=== PATIENT | male | born 1940 | race Caucasian/White ===

== ENCOUNTER 2020-08-06 09:28 | Emergency (ER) | payer MEDICARE, OTHER ==
[~2020-08-06] VITALS: Ht 172.7 cm; Wt 72.7 kg
--- NOTE | 2020-08-06 10:52 | REP ---
INDICATION: fall injury, chest pain. COMPARISON: 11/04/2009. TECHNIQUE: Upright PA and lateral chest. FINDINGS: The lung sanabria are clear. Cardiac size is normal. The omaira, mediastinum and skeletal structures are unremarkable. There is no pneumothorax, hemothorax or pulmonary contusion. No rib fractures are identified. Thoracic vertebral body heights are normal. IMPRESSION: Essentially negative PA and lateral chest There is no interval change. <Electronically signed by Chaparro West > 08/06/20 [id number]
[2020-08-06 10:54] LABS: BASO % 0.4 % (0.0-1.0); EOS # 0.1 10^3/uL (0.0-0.5); EOS % 0.8 % (0.0-3.0); HEMATOCRIT 46.5 % (42.0-52.0); HEMOGLOBIN 15.7 g/dl (13.5-17.5); LYMPH # 0.8 10^3/uL (1.5-5.0); LYMPH % 10.7 % (24.0-44.0); MEAN CORPUSCULAR HGB CONC 33.8 g/dl (32.0-36.5); MEAN CORPUSCULAR VOLUME 91.7 fl (80.0-96.0); MONO # 0.6 10^3/uL (0.0-0.8); MONO % 8.3 % (2.0-8.0); NEUTROPHILS # 5.7 10^3/uL (1.5-8.5); NEUTROPHILS % 79.5 % (36.0-66.0); PLATELET COUNT, AUTOMATED 200 10^3/uL (150-450); RED BLOOD COUNT 5.07 10^6/uL (4.30-6.10); WHITE BLOOD COUNT 7.2 10^3/uL (4.0-10.0)
--- NOTE | 2020-08-06 11:17 | REP ---
INDICATION: fall, possible fracture. COMPARISON: None. TECHNIQUE: CT chest performed without the use of intravenous contrast. Sagittal and coronal reconstruction images are performed. FINDINGS: Lungs: Clear, no infiltrate or nodule. There are several scattered calcified granulomas bilaterally. There is mild scattered interstitial fibrosis bilaterally. Mediastinum: No gross adenopathy. Brittney: No gross adenopathy. There is a small calcified lymph node in the right hilum. Axilla: No gross adenopathy. Pleura: No effusion. Heart: Not enlarged. Thoracic aorta: No aneurysm. Upper abdominal structures: Grossly unremarkable. There is a small hiatal hernia. Visualized osseous structures: Unremarkable. No acute fracture is seen. There is an oval healed fracture of the anterior left 3rd rib. IMPRESSION: Chronic changes, no acute abnormalities detected. <Electronically signed by Chaparro Rice > 08/06/20 [id number]
[2020-08-06 11:37] LABS: ALBUMIN 3.8 GM/DL (3.2-5.2); ALT/SGPT 21 U/L (12-78); BILIRUBIN,DIRECT 0.2 MG/DL (0.0-0.2); BILIRUBIN,TOTAL 0.6 MG/DL (0.2-1.0); BLOOD UREA NITROGEN 13 MG/DL (7-18); CALCIUM LEVEL 8.9 MG/DL (8.8-10.2); CARBON DIOXIDE LEVEL 28 MEQ/L (21-32); CHLORIDE LEVEL 108 MEQ/L (98-107); CK-MB VALUE MASS 4.7 NG/ML (<3.6); CPK CREATINE PHOSPHOKINASE 316 U/L (39-308); CREATININE FOR GFR 1.04 MG/DL (0.70-1.30); GLOMERULAR FILTRATION RATE > 60.0 (>35); GLUCOSE, FASTING 105 MG/DL (70-100); LIPASE 88 U/L (73-393); MB/CK RELATIVE INDEX 1.49 (< OR =4); POTASSIUM SERUM 3.8 MEQ/L (3.5-5.1); SODIUM LEVEL 141 MEQ/L (136-145); TOTAL PROTEIN 6.8 GM/DL (6.4-8.2); TROPONIN I 0.04 NG/ML (< 0.10)
[2020-08-06] MEDS ORDERED: KETOROLAC 30 MG/ML 1ML VIAL IV ONE (11:50)
[2020-08-06 12:15] VITALS: BP 202/103
[2020-08-06] MEDS ORDERED: KETO10TAB PO (12:24)
[2020-08-06] MEDS ORDERED: NORV5TAB PO (12:24)
--- NOTE | 2020-08-06 20:05 | ECGEPIP ---
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
== END 2020-08-06 12:37 | disposition home or self-care (01) ==
LOC: M ED 09:28
DX: S20.219A Contusion of unspecified front wall of thorax, initial encounter (principal); M25.562 Pain in left knee; M25.522 Pain in left elbow; W10.8XXA Fall (on) (from) other stairs and steps, initial encounter; Y92.9 Unspecified place or not applicable; Y93.9 Activity, unspecified; Y99.9 Unspecified external cause status; I10 Essential (primary) hypertension; F17.200 Nicotine dependence, unspecified, uncomplicated

== ENCOUNTER 2020-08-06 16:19 | Inpatient (IN) | payer MEDICARE ==
[~2020-08-06] VITALS: Ht 172.7 cm; Wt 66.6 kg
[~2020-08-06 16:19] MED LIST: KETO10TAB PO; NORV5TAB PO
[2020-08-06] MEDS ORDERED: ISOVUE-370 76% 100ML VIAL As Ordered ONE (16:29)
[2020-08-06 17:00] VITALS: BP 168/76
--- NOTE | 2020-08-06 17:05 | REP ---
INDICATION: CVA - Nursing interventions must not delay CT. COMPARISON: None. TECHNIQUE: Helical scanning is acquired. 5 mm axial images were reformatted. Coronal MPR images were generated. FINDINGS: Bone window settings demonstrate an intact bony calvarium. There is no evidence of skull fracture or incidental bony calvarial lesion. The visualized paranasal sinuses appear clear. No intraorbital abnormality is seen. On soft tissue window setting images; the lateral, third, and fourth ventricles are normal in size and position. Rice-white differentiation pattern is normal above and below the tentorium. There are is no evidence of intracranial hemorrhage. No mass, edema, infarction, or midline shift is seen. No extra-axial fluid collection is appreciated. Moderate vascular calcification is seen in the distal internal carotid arteries bilaterally. There is generalized volume loss intracranially. Mild small vessel changes are noted. IMPRESSION: Generalized volume loss and small vessel atherosclerotic changes. Vascular calcification. No acute intracranial abnormality per. <Electronically signed by Izaiah Morris > 08/06/20 0712
--- NOTE | 2020-08-06 17:09 | REP ---
INDICATION: CVA - Nursing interventions must not delay CT. COMPARISON: None. TECHNIQUE: CT contrast dose: 100 ml of intravenous Isovue 370. CT technique: Helical scanning is acquired. 2 mm axial images are reformatted. Maximal intensity projection and multiplanar re-formation images are generated along with 3-D surface rendered color imaging which is viewed rotational. FINDINGS: Distal vertebral arteries are unremarkable. Basilar artery is somewhat tortuous but widely patent. Posterior cerebral and superior cerebellar vessels are unremarkable. The distal internal carotid arteries are unremarkable. There is vascular calcification in the carotid siphons bilaterally. 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 No other bustillos aneurysm is appreciated. The anterior and middle cerebral arteries are intact bilaterally. No vessel cutoff is seen. Dural sinuses are unremarkable. Surface rendered 3D images show no additional finding. IMPRESSION: 2 mm right ICA bustillos aneurysm. Vascular calcification in the carotid siphons bilaterally. Otherwise negative CT angiography of the brain. <Electronically signed by Izaiah Morris > 08/06/20 [id number]
--- NOTE | 2020-08-06 17:11 | REP ---
INDICATION: cva, left sided wekness COMPARISON: None. TECHNIQUE: Contrast enhancement dose is 100 mL of intravenous Isovue 370. Helical scanning is acquired. 2 mm axial images are re-formatted. Coronal and sagittal MPR images are generated. Coronal and sagittal MIP and oblique MPR images are generated. 3D surface rendered images are generated and viewed rotationally. FINDINGS: There is good opacification of the arterial tree. The thoracic aortic arch is intact is visualized although there is fairly heavy vascular calcification. Great vessel origins are nonstenotic. There is calcification at the origin of the left vertebral artery and right vertebral artery but no occlusion or high-grade stenosis is seen. Vertebral arteries are codominant. The common carotid arteries show minimal calcification bilaterally. There is calcific plaquing at the carotid bifurcations bilaterally. Less than 50% stenosis is seen in the proximal ICAs on both sides. Cervical internal carotid arteries are unremarkable. IMPRESSION: Multifocal calcific plaquing. No high-grade stenosis or occlusion seen. <Electronically signed by Izaiah Morris > 08/06/20 [id number]
--- NOTE | 2020-08-06 17:14 | REP ---
INDICATION: CVA. COMPARISON: Comparison chest x-ray August 06 2020 at 10:32 a.m.. TECHNIQUE: Portable upright AP chest radiograph. 5:09 p.m. radiograph. FINDINGS: The lungs remain well inflated and free of infiltrate. Pleural angles are sharp. Heart remains mildly enlarged. Pulmonary vasculature is cephalized. There is no evidence of pleural effusion or pulmonary edema. No focal infiltrate is seen.. IMPRESSION: Cardiomegaly mild in degree. Cephalization of the pulmonary vasculature. No evidence of pleural effusion or pulmonary edema.. <Electronically signed by Izaiah Morris > 08/06/20 [id number]
[2020-08-06] MEDS ORDERED: ASPIRIN 325 MG TAB PO ONE (17:40)
[2020-08-06] MEDS ORDERED: NICOTINE 21MG/24HR 1 EA TRANSDERMAL TD ONE (17:50)
[2020-08-06 18:30] LABS: RSV AMPLIFICATION NEGATIVE (NEGATIVE)
--- NOTE | 2020-08-06 19:18 | HPEPDOC ---
General Date of Admission Aug 06, 2020 Date of Service: Aug 06, 2020 Chief Complaint The patient is a 80-year-old male admitted with a reason for visit of left sided weakness Source: Patient History of Present Illness Mr. Caballero is an 80 year old male without medical history who presents with left sided weakness. He initially he tripped and fell on Wednesday and landed on his chest. He was able to get back up. His chest pain continued, so he went to the urgent care today. Urgent care sent him to the hospital. Imaging was negative for fracture and pain improved with Ketorolac. He did have hypertension, and ED initially wanted to admit for hypertensive urgency. Patient did not want to stay, he was given amlodipine and PO ketorolac and sent home. He picked up the medications. At home, he was trying to reach into his car to pick something up when he leaned backwards and fell. He denies blacking out, but he tried to get up and was not able to. He felt that his left leg was weaker than normal. His landlord was there and helped him get up and called for an ambulance. When he arrived, the ED provider reported that he had dysarthria, left facial droop, and left upper and lower extremity weakness. He went to CT head and CT angio of the head and neck. Negative for hemorrhage or significant stenosis. By that time about an hour has passed since symptoms started and symptoms completely resolved. ED spoke with neurology. Patient received full dose aspirin. When I spoke with the patient, this is the first time he has ever had weakness. Denies fever/chills, chest pain, dyspnea, abdominal pain, or dysuria. He has a chronic smoker's cough. Patient will be admitted for TIA. Home Medications Scheduled Amlodipine Besylate (Norvasc) 5 Mg Tablet, 1 TAB PO DAILY Scheduled PRN Ketorolac Tromethamine (Ketorolac Tromethamine) 10 Mg Tablet, 10 MG PO Q6H PRN for PAIN Allergies Coded Allergies: No Known Allergies (Unverified , 08/06/20) Past Medical History Medical History 1. Hypertension 2. Tobacco use Surgical History Denies any surgeries in the past Family History Father and mother has heart disease. Patient did not know what kind of heart disease. Social History * Smoker: current smoker Alcohol: Denies Drugs: denies A-FIB/CHADSVASC A-FIB History Current/History of A-Fib/PAF?: No Review of Systems Constitutional: Denies: Chills, Fever Eyes: Denies: Vision change ENT: Denies: Sore Throat Skin: Denies: Rash Pulmonary: Reports: Dyspnea (with exertion), Cough (chronic) Cardiovascular: Denies: Chest Pain Gastrointestinal: Denies: Abdominal Pain, Diarrhea Genitourinary: Denies: Dysuria Hematologic: Reports: Bruising (Fall on Wednesday with bruising of left arm and left knee) Neurological: Reports: Weakness (now resolved); Denies: Numbness Psych: Reports: Depression; Denies: Anxiety Physical Examination General Exam: Positive: Alert, Cooperative Eye Exam: Positive: EOMI; Negative: Sclera icteric Neck Exam: Positive: Supple Chest Exam: Positive: Clear to auscultation Heart Exam: Positive: Rate Normal, Regular Rhythm Abdomen Exam: Positive: Normal bowel sounds, Soft; Negative: Tenderness Extremity Exam: Negative: Edema Skin Exam: Positive: Other skin issue (Bruising of left arm) Neuro Exam: Positive: Normal Speech, Strength at 5/5 X4 ext, Cranial Nerves 3- 12 NL Psych Exam: Positive: Mental status NL, Mood NL, Oriented x 3 Vital Signs Vital Signs Date Time Temp Pulse Resp B/P (MAP) Pulse Ox O2 Delivery O2 Flow Rate FiO2 08/06/20 18:37 82 95 08/06/20 18:30 166/75 (105) 08/06/20 17:00 95.8 18 Room Air Laboratory Data Labs 24H Laboratory Tests 2 08/06/20 17:37: Coronavirus (COVID-19)(PCR) NEGATIVE, Influenza Type A (RT-PCR) NEGATIVE, Influenza Type B (RT-PCR) NEGATIVE, Respiratory Syncytial Virus (PCR) NEGATIVE Assessment/Plan Mr. Caballero is an 80 year old male without medical history who presents with left sided weakness. Lasted for about an hour per ED physician. Now resolved. CT head and CT angio of head and neck negative for hemorrhage or significant stenosis. There is calcification. Will complete work up with MRI of head, echocardiogram with bubble study, telemetry, HbA1c, and lipid panel. Patient received full dose aspirin in the ED. Will start on high dose pravastatin. Plan / VTE VTE Prophylaxis Ordered?: Yes Plan Plan 1. TIA -Left sided weakness and dysarthria resolved -CT angio head and neck demonstrated calcification, but no significant stenosis -Pending MRI and echocardiogram -Monitor on telemetry -PT in AM -Received full dose aspirin in the ED -Continue aspirin -Start statin 2. Hypertension -Continue amlodipine 3. DVT ppx -SCD and TEDs Disposition: Pending MRI, echocardiogram, telemetry, HbA1c, and PT results. Possible discharge home tomorrow if test results negative and patient ambulate well HUGO DELACRUZ DO Aug 06, 2020 19:18
[2020-08-06 20:30] VITALS: BP 158/84
--- NOTE | 2020-08-06 20:30 | REPVR ---
PROCEDURE INFORMATION: Exam: MR Head Without Contrast Exam date and time: 08/06/2020 7:54 PM Age: 80 years old Clinical indication: Other: Dysarthria, facial droop, left sided weakness TECHNIQUE: Imaging protocol: MR of the head without contrast. COMPARISON: 1. CT Head without contrast 08/06/2020 4:[address] ANGIO HEAD 08/06/2020 4:39:04 PM FINDINGS: Brain: Patchy areas of medial right frontal lobe parenchymal true diffusion restriction with correlative cytotoxic edema on the T2 weighted imaging consistent with recent acute to subacute infarcts in the right SALLY territory. No evidence of infarct hemorrhagic conversion. The brain demonstrates generalized volume loss. Patchy increased signal intensity in the deep white matter and zaria on the T2 weighted imaging most likely represents chronic small vessel ischemic change. Cerebral ventricles: Xanthogranulomatous changes of the choroid plexus. The ventricles are moderately enlarged in keeping with volume loss. Bones/joints: Unremarkable. Paranasal sinuses: Mild ethmoid sinus mucosal thickening. Mastoid air cells: Normal as visualized. No mastoid effusion. Orbital cavity: Unremarkable. Soft tissues: Unremarkable. IMPRESSION: Recent acute/subacute infarcts in the right SALLY territory. Electronically signed by: Mya Ashford On 08/06/2020 20:30:49 PM
--- NOTE | 2020-08-06 20:36 | ECGEPIP ---
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
[2020-08-06 20:50] VITALS: BP 158/84
[2020-08-06] MEDS: PRAVASTATIN 20 MG TAB PO SCH (20:54)
[2020-08-06] MEDS: TAMSULOSIN 0.4 MG CAP PO SCH (20:54)
[2020-08-07] VITALS (7 sets, daily range): BP systolic 130–144; BP diastolic 66–82
[2020-08-07 05:55] LABS: HEMATOCRIT 42.9 % (42.0-52.0); HEMOGLOBIN 14.5 g/dl (13.5-17.5); MEAN CORPUSCULAR HEMOGLOBIN 30.9 pg (27.0-33.0); MEAN CORPUSCULAR HGB CONC 33.8 g/dl (32.0-36.5); MEAN CORPUSCULAR VOLUME 91.3 fl (80.0-96.0); PLATELET COUNT, AUTOMATED 185 10^3/uL (150-450); WHITE BLOOD COUNT 8.9 10^3/uL (4.0-10.0)
[2020-08-07 06:12] LABS: HEMOGLOBIN A1c 5.5 %
[2020-08-07 06:18] LABS: BLOOD UREA NITROGEN 16 MG/DL (7-18); CALCIUM LEVEL 8.4 MG/DL (8.8-10.2); CARBON DIOXIDE LEVEL 25 MEQ/L (21-32); CHLORIDE LEVEL 108 MEQ/L (98-107); CHOLESTEROL LEVEL 152 MG/DL (<200); CHOLESTEROL RISK RATIO 2.235 (<5); GLOMERULAR FILTRATION RATE > 60.0 (>35); GLUCOSE, FASTING 108 MG/DL (70-100); HDL CHOLESTEROL 68 MG/DL (>40); LDL CHOLESTEROL 73 MG/DL (<100); NON-HDL-C 84 MG/DL; POTASSIUM SERUM 3.4 MEQ/L (3.5-5.1); SODIUM LEVEL 141 MEQ/L (136-145); TRIGLYCERIDES LEVEL 57 MG/DL (<150)
[2020-08-07] MEDS ORDERED: POTASSIUM CHLORIDE 10 MEQ SR TABLET PO ONE (06:30)
[2020-08-07 07:25] LABS: MAGNESIUM LEVEL 2.4 MG/DL (1.8-2.4)
[2020-08-07] MEDS ORDERED: amLODIPine 5 MG TAB PO SCH (09:00)
[2020-08-07] MEDS ORDERED: PNEUMOCOCCAL VACCINE 0.5ML SYRINGE (PNEUMOVAX 23) IM ONE (09:00)
[2020-08-07] MEDS ORDERED: FLUBLOK(EGG FREE)(QUAD)INFLUENZA VACC 0.5ML SYRINGE 18YRS & OLDER IM ONE (09:00)
[2020-08-07] MEDS: ASPIRIN 81MG ENTERIC TABLET PO SCH (09:32)
--- NOTE | 2020-08-07 13:55 | ECHO ---
DATE OF PROCEDURE: 08/07/2020 Age: 80 Gender: Male REFERRING PHYSICIAN: Benjamin Miller DO. PATIENT LOCATION: Room 3215. REASON FOR STUDY: Transient ischemic attack (TIA). MEASUREMENTS: IVS 1.3 cm LV 3.4 LVPW 1.4 cm LA 3.3 cm Aorta 3.4 cm IVC 1.2 cm DOPPLER MEASUREMENT Peak velocity across the aortic valve 2.5 m/s Peak velocity across the LVOT 1.3 m/s Peak gradient across the aortic valve 26 mmHg Mean gradient across the aortic valve 14 mmHg Mitral E 0.72 Mitral A 1.2 with a ratio of 0.6 2D COMMENTS: 1. Normal left ventricular size with mildly increased left ventricular wall thickness. Left ventricular systolic function is normal, estimated at 60% to 65%. 2. Normal left atrium. Normal right atrium and right ventricle. 3. The atrial septum appeared to be normal without evidence of defect or shunt. 4. Normal aortic root. 5. Trace pericardial effusion noted, no evidence of cardiac tamponade. 6. Moderately calcified aortic valve with mildly restrictive leaflet motion. Mildly calcified mitral annulus with normal anterior mitral valve leaflet motion. Normal tricuspid valve. The pulmonic valve and proximal pulmonary artery branches were not well visualized. 7. The inferior vena cava was normal in size, central venous pressure is most likely normal. DOPPLER: It detects trace mitral regurgitation, trace tricuspid regurgitation. Abnormal relaxation pattern was noted across the mitral valve leaflets, as well as the mitral valve annulus consistent with features of grade 1 left ventricular diastolic dysfunction. IMPRESSION: 1. Normal global left ventricular systolic function with mild concentric left ventricular hypertrophy. There are some features of left ventricular diastolic dysfunction manifested by abnormal relaxation. 2. Aortic valve sclerosis with mild aortic stenosis, but no aortic regurgitation. 3. Mitral annular calcification with trace mitral regurgitation. 4. This study was technically limited due to poor acoustic window. [facility]
--- NOTE | 2020-08-07 14:51 | REP ---
INDICATION: New left sided weakness, looking for hemorrhage. COMPARISON: Comparison CT study August 06, 2020.. TECHNIQUE: Helical scanning is acquired. 5 mm axial images were reformatted. Coronal MPR images were generated. FINDINGS: Generalized volume loss, mild small vessel changes, and vascular calcification are again noted unchanged from yesterday's CT study. There is no evidence of intracranial hemorrhage. No acute infarction is seen. No mass or midline shift is observed. No extra-axial fluid collection is seen. IMPRESSION: Generalized volume loss, vascular calcification, and mild small vessel changes again noted. No change from yesterday's head CT.. <Electronically signed by Izaiah Morris > 08/07/20 [id number]
[2020-08-07] MEDS: NS 1,000 ML IV SCH (17:44)
--- NOTE | 2020-08-07 17:57 | REP ---
INDICATION: dyspnea. COMPARISON: 08/06/2020. TECHNIQUE: Portable AP chest with the patient sitting. FINDINGS: The cephalization of the pulmonary vasculature identified previously has improved. There are no focal infiltrates. No pleural effusions. The lung sanabria are otherwise clear. Cardiac size is upper normal. Brittney, mediastinum, and skeletal structures are unremarkable. IMPRESSION: The cephalized pulmonary vasculature identified previously has improved. Otherwise, negative portable chest. <Electronically signed by Chaparro West > 08/07/20 [id number]
[2020-08-07] MEDS ORDERED: ONDANSETRON 4MG/2ML VIAL As Ordered ONE (18:24)
[2020-08-07] MEDS ORDERED: ONDANSETRON 4MG/2ML VIAL IV PRN (18:25)
--- NOTE | 2020-08-07 18:41 | IPNPDOC ---
Subjective Date Seen The patient was seen on 08/07/20. Subjective Chief Complaint/HPI Mr. Caballero is an 80 year old male without medical history who presents with left sided weakness. He had an MRI overnight which demonstrated acute and subacute infarctions along the right SALLY. He was seen early in the morning, and he did not exhibit any weakness. Denied any chest pain or dyspnea. I was notified by nurse in the afternoon that patient started to have worsening left sided weakness and was having dysphagia. I ordered CT head which was negative for acute changes. I reached out to neurology. Neurology recommending maintaining blood pressure between 140 to 180 and starting Plavix. Speech evaluated patient and recommended mechanical soft with nectar thick liquids. PT/OT recommending ARU. Later in the afternoon, patient vomited and aspirated. CXR was negative, but lungs sounded very rhonchus. Made him NPO and started him on Zofran. Objective Physical Examination General Exam: Positive: Alert, Cooperative Eye Exam: Negative: Sclera icteric Chest Exam: Positive: Rhonchi Heart Exam: Positive: Rate Normal, Regular Rhythm Abdomen Exam: Positive: Normal bowel sounds, Soft; Negative: Tenderness Extremity Exam: Negative: Edema Skin Exam: Positive: Other skin issue (Bruising of left arm) Neuro Exam: Negative: Strength at 5/5 X4 ext (Left arm and leg weakness) Psych Exam: Positive: Mental status NL, Mood NL Assessment /Plan Assessment Mr. Caballero is an 80 year old male without medical history who presents with left sided weakness. Resolved in the ED. MRI later that evening demonstrated acute/subacute infarcts in the right SALLY regions. Morning after admission, he wa s doing well, but later in the afternoon started to decline. Left sided weakness returned with dysphagia. Spoke with neurology. Recommending maintaining blood pressure between 140s to 180s and starting Plavix. Plan/VTE VTE Prophylaxis Ordered?: Yes Plan 1. Acute/subacute right SALLY CVA -Left sided weakness and dysphagia -Speech therapy evaluated, on pureed, nectar thick liquid diet -Repeat CT head negative, pending MRI -CT angio head and neck demonstrated calcification, but no significant stenosis -Echocardiogram negative for clots. Tele negative for atrial fibrillation -Continue aspirin and statin -Started Plavix -Maintain blood pressure between 140 to 180. Started IV fluids to increase BP 2. Aspiration -CXR negative, but lungs sound very rhonchus -NPO tonight 3. Hypertension -Will stop amlodipine to allow for permissive hypertension 4. DVT ppx -SCD and TEDs Disposition: Will need rehab when medically stable VS, I&O, 24H, Fishbone Vital Signs/I&O Vital Signs Date Time Temp Pulse Resp B/P (MAP) Pulse Ox O2 Delivery O2 Flow Rate FiO2 08/07/20 15:29 99.1 100 18 134/78 (96) 90 Room Air I&O- Last 24 Hours up to 6 AM 08/07/20 06:00 Intake Total 480 ml Output Total 100 ml Balance 380 ml Laboratory Data 24H LABS Laboratory Tests 2 08/07/20 03:05: Urine Color YELLOW, Urine Appearance CLEAR, Urine pH 5.0, Urine Specific Jensen 1.054, Urine Protein 1+H, Urine Glucose (UA) NEGATIVE, Urine Ketones 1+H, Urine Blood 1+H, Urine Nitrite NEGATIVE, Urine Bilirubin NEGATIVE, Urine Urobilinogen 0.2, Urine Leukocyte Esterase NEGATIVE, Urine WBC (Auto) 2, Urine RBC (Auto) 5H, Urine Hyaline Casts (Auto) 0, Urine Bacteria (Auto) NEGATIVE, Urine Squamous Epithelial Cells 0, Urine Mucus (Auto) SMALL, Urine Sperm (Auto) 08/07/20 05:25: Nucleated Red Blood Cells % (auto) 0.0, Anion Gap 8, Glomerular Filtration Rate > 60.0, Estimated Mean Plasma Glucose 111H, Hemoglobin A1c 5.5, Calcium Level 8.4L, Magnesium Level 2.4, Triglycerides Level 57, Total Cholesterol 152, LDL Cholesterol 73, Non-HDL Cholesterol (LDL + VLDL) 84, Total HDL Cholesterol 68, Cholesterol/HDL Ratio 2.235 CBC/BMP Laboratory Tests 08/07/20 05:25 HUGO DELACRUZ DO Aug 07, 2020 18:41
[2020-08-07] MEDS: PRAVASTATIN 20 MG TAB PO SCH (19:59)
[2020-08-07] MEDS: TAMSULOSIN 0.4 MG CAP PO SCH (19:59)
[2020-08-07] MEDS: CLOPIDOGREL 75 MG TAB PO SCH (19:59)
--- NOTE | 2020-08-07 21:57 | REPVR ---
PROCEDURE INFORMATION: Exam: MR Head Without Contrast Exam date and time: 08/07/2020 1:44 PM Age: 80 years old Clinical indication: Altered mental status/memory loss; Other: Neuro changes TECHNIQUE: Imaging protocol: MR of the head without contrast. COMPARISON: MRI-Brain without Contrast 08/06/2020 7:25 PM FINDINGS: Age-related volume loss. Major vascular flow voids at the skull base are preserved. No extra-axial fluid collection. No hydrocephalus. Non-specific white matter gliosis, probable chronic microvascular ischemia. No midline shift or intracranial mass effect. No cerebral edema or pathologic susceptibility. Diffusion restriction involving the medial right frontal and parietal lobes within the right SALLY territory. Associated T2 prolongation. Mild paranasal sinus disease. No significant mastoid effusion. IMPRESSION: Acute/early subacute ischemic infarct involving the paramedian right frontal and parietal lobes within the right SALLY territory. Electronically signed by: Rishi Morrison On 08/07/2020 21:57:32 PM
[2020-08-08] VITALS (8 sets, daily range): BP systolic 164–192; BP diastolic 74–96
[2020-08-08] MEDS: NS 1,000 ML IV SCH ×2 (05:54→19:45)
[2020-08-08 05:57] LABS: HEMATOCRIT 44.6 % (42.0-52.0); HEMOGLOBIN 14.7 g/dl (13.5-17.5); MEAN CORPUSCULAR HEMOGLOBIN 30.4 pg (27.0-33.0); MEAN CORPUSCULAR VOLUME 92.3 fl (80.0-96.0); PLATELET COUNT, AUTOMATED 208 10^3/uL (150-450); RED BLOOD COUNT 4.83 10^6/uL (4.30-6.10)
[2020-08-08 06:20] LABS: CALCIUM LEVEL 9.1 MG/DL (8.8-10.2); CREATININE FOR GFR 1.6 MG/DL (0.70-1.30); GLOMERULAR FILTRATION RATE 44.4 (>35); POTASSIUM SERUM 4.5 MEQ/L (3.5-5.1)
--- NOTE | 2020-08-08 08:05 | REP ---
INDICATION: Hypoxia. COMPARISON: 08/07/2020. TECHNIQUE: Portable AP chest with the patient upright. FINDINGS: The lung sanabria are clear. Cardiac size is normal. The omaira, mediastinum and skeletal structures are unremarkable. IMPRESSION: Essentially negative portable chest <Electronically signed by Chaparro West > 08/08/20 0802
[2020-08-08] MEDS: CLOPIDOGREL 75 MG TAB PO SCH (09:22)
[2020-08-08] MEDS: ASPIRIN 81MG ENTERIC TABLET PO SCH (09:22)
[2020-08-08] MEDS: DOCUSATE SODIUM 100MG CAPSULE PO SCH ×2 (14:37→19:46)
--- NOTE | 2020-08-08 19:08 | IPNPDOC ---
Subjective Date Seen The patient was seen on 08/08/20. Subjective Chief Complaint/HPI Mr. Caballero is an 80 year old male without medical history who presents with left sided weakness. This morning, he still has left arm and leg weakness. He is able to squeeze, push, pull the arms on left, but weaker than right. He has trouble lifting left arm. Leg leg can lift against gravity, but cannot hold in air. Otherwise, denies chest pain or dyspnea. He aspirated when speech therapy was working with swallowing thin liquids. Otherwise, continue NPO and meds with apple sauce Objective Physical Examination General Exam: Positive: Alert, Cooperative Eye Exam: Negative: Sclera icteric Chest Exam: Positive: Rhonchi Heart Exam: Positive: Rate Normal, Regular Rhythm Abdomen Exam: Positive: Normal bowel sounds, Soft; Negative: Tenderness Extremity Exam: Negative: Edema Skin Exam: Positive: Other skin issue (Bruising of left arm) Neuro Exam: Positive: Strength at 5/5 X4 ext (Left arm and leg weakness) Psych Exam: Positive: Mental status NL, Mood NL Assessment /Plan Assessment Mr. Caballero is an 80 year old male without medical history who presents with left sided weakness. Resolved in the ED. MRI later that evening demonstrated acute/subacute infarcts in the right SALLY regions. Morning after admission, he was doing well, but later in the afternoon started to decline. Left sided weakness returned with dysphagia. Spoke with neurology. Recommending maintaining blood pressure between 140s to 180s and starting Plavix. Plan/VTE VTE Prophylaxis Ordered?: Yes Plan 1. Acute/subacute right SALLY CVA -Left sided weakness and dysphagia -Speech therapy evaluated, on pureed, nectar thick liquid diet -Repeat CT head negative, pending MRI -CT angio head and neck demonstrated calcification, but no significant stenosis -Echocardiogram negative for clots. Tele negative for atrial fibrillation -Continue aspirin and statin -Started Plavix -Maintain blood pressure between 140 to 180. 2. Aspiration -CXR negative, but lungs sound very rhonchus -Speech therapy following -Continue NPO 3. Hypertension -Will stop amlodipine to allow for permissive hypertension 4. DVT ppx -SCD and TEDs Disposition: Will need rehab when medically stable VS, I&O, 24H, Fishbone Vital Signs/I&O Vital Signs Date Time Temp Pulse Resp B/P (MAP) Pulse Ox O2 Delivery O2 Flow Rate FiO2 08/08/20 16:00 8.0 08/08/20 16:00 97.9 88 19 170/80 (110) 94 Room Air I&O- Last 24 Hours up to 6 AM 08/08/20 06:00 Intake Total 1845 ml Output Total 200 ml Balance 1645 ml Laboratory Data 24H LABS Laboratory Tests 2 08/08/20 05:16: Nucleated Red Blood Cells % (auto) 0.0, Anion Gap 7L, Glomerular Filtration Rate 44.4, Calcium Level 9.1 CBC/BMP Laboratory Tests 08/08/20 05:16 HUGO DELACRUZ 25, 2021 19:08
[2020-08-08] MEDS: hydrALAZINE 20MG/ML 1ML VIAL (J0360 PER 20MG) IV PRN (19:45)
[2020-08-08] MEDS: PRAVASTATIN 20 MG TAB PO SCH (19:45)
[2020-08-08] MEDS: TAMSULOSIN 0.4 MG CAP PO SCH (19:46)
[2020-08-09] VITALS (7 sets, daily range): BP systolic 140–202; BP diastolic 54–92
[2020-08-09 05:28] LABS: HEMATOCRIT 43.7 % (42.0-52.0); HEMOGLOBIN 14.6 g/dl (13.5-17.5); MEAN CORPUSCULAR HEMOGLOBIN 31.1 pg (27.0-33.0); MEAN CORPUSCULAR HGB CONC 33.4 g/dl (32.0-36.5); PLATELET COUNT, AUTOMATED 207 10^3/uL (150-450); WHITE BLOOD COUNT 6.4 10^3/uL (4.0-10.0)
[2020-08-09 05:47] LABS: CALCIUM LEVEL 8.7 MG/DL (8.8-10.2); CREATININE FOR GFR 1.42 MG/DL (0.70-1.30); GLOMERULAR FILTRATION RATE 50.9 (>35); POTASSIUM SERUM 4.2 MEQ/L (3.5-5.1)
[2020-08-09] MEDS: CLOPIDOGREL 75 MG TAB PO SCH (10:16)
[2020-08-09] MEDS: DOCUSATE SODIUM 100MG CAPSULE PO SCH ×2 (10:16→21:00)
[2020-08-09] MEDS: ASPIRIN 81MG ENTERIC TABLET PO SCH (10:16)
[2020-08-09] MEDS: LR 1,000 ML IV SCH ×2 (10:16→20:10)
--- NOTE | 2020-08-09 11:39 | IPNPDOC ---
Subjective Date Seen The patient was seen on 08/09/20. Subjective Chief Complaint/HPI Mr. Caballero is an 80 year old male without medical history who presents with left sided weakness. Yesterday afternoon, he did not do well with thin liquids and remains NPO. He is doing okay with crushed meds with applesauce. This morning, he was fatigued. Still has left sided weakness. Objective Physical Examination General Exam: Positive: Alert, Cooperative Eye Exam: Negative: Sclera icteric Chest Exam: Positive: Rhonchi Heart Exam: Positive: Rate Normal, Regular Rhythm Abdomen Exam: Positive: Normal bowel sounds, Soft; Negative: Tenderness Extremity Exam: Negative: Edema Skin Exam: Positive: Other skin issue (Bruising of left arm) Neuro Exam: Positive: Strength at 5/5 X4 ext (Left arm and leg weakness) Psych Exam: Positive: Mental status NL, Mood NL Assessment /Plan Assessment Mr. Caballero is an 80 year old male without medical history who presents with left sided weakness. Resolved in the ED. MRI later that evening demonstrated acute/subacute infarcts in the right SALLY regions. Morning after admission, he was doing well, but later in the afternoon started to decline. Left sided weakness returned with dysphagia. Spoke with neurology. Permissive hypertension and DAPT therapy. Plan/VTE VTE Prophylaxis Ordered?: Yes Plan 1. Acute/subacute right SALLY CVA -Left sided weakness and dysphagia -Speech therapy following, recommendations appreciated -CT angio head and neck demonstrated calcification, but no significant stenosis -Echocardiogram negative for clots. Tele negative for atrial fibrillation -Continue aspirin and statin -Started Plavix -Maintain blood pressure between 140 to 180. 2. Aspiration -CXR negative, but lungs sound very rhonchus -Speech therapy following -Continue NPO 3. Hypertension -Will stop amlodipine to allow for permissive hypertension 4. DVT ppx -SCD and TEDs Disposition: Pending clinical improvement. Will need rehab when medically stable VS, I&O, 24H, [place] Vital Signs/I&O Vital Signs Date Time Temp Pulse Resp B/P (MAP) Pulse Ox O2 Delivery O2 Flow Rate FiO2 08/09/20 10:16 94 140/54 08/09/20 08:00 98.7 18 93 Room Air 08/09/20 04:00 8.0 I&O- Last 24 Hours up to 6 AM 08/09/20 06:00 Intake Total 680 ml Output Total 650 ml Balance 30 ml Laboratory Data 24H LABS Laboratory Tests 2 08/09/20 05:05: Nucleated Red Blood Cells % (auto) 0.0, Anion Gap 6L, Glomerular Filtration Rate 50.9, Calcium Level 8.7L CBC/BMP Laboratory Tests 08/09/20 05:05 HUGO DELACRUZ DO Aug 09, 2020 11:38
[2020-08-09] MEDS: hydrALAZINE 20MG/ML 1ML VIAL (J0360 PER 20MG) IV PRN (11:53)
[2020-08-09 13:07] LABS: CALCIUM LEVEL 9.1 MG/DL (8.8-10.2); CREATININE FOR GFR 1.35 MG/DL (0.70-1.30); POTASSIUM SERUM 4.3 MEQ/L (3.5-5.1)
[2020-08-09] MEDS: TAMSULOSIN 0.4 MG CAP PO SCH (22:09)
[2020-08-09] MEDS: PRAVASTATIN 20 MG TAB PO SCH (22:09)
[2020-08-10] VITALS (7 sets, daily range): BP systolic 150–186; BP diastolic 50–100
[2020-08-10] MEDS: hydrALAZINE 20MG/ML 1ML VIAL (J0360 PER 20MG) IV PRN ×4 (04:08→23:00)
[2020-08-10 05:27] LABS: HEMATOCRIT 43.7 % (42.0-52.0); HEMOGLOBIN 14.3 g/dl (13.5-17.5); MEAN CORPUSCULAR HEMOGLOBIN 30.8 pg (27.0-33.0); MEAN CORPUSCULAR HGB CONC 32.7 g/dl (32.0-36.5); PLATELET COUNT, AUTOMATED 181 10^3/uL (150-450); RED BLOOD COUNT 4.65 10^6/uL (4.30-6.10)
[2020-08-10 05:49] LABS: BLOOD UREA NITROGEN 29 MG/DL (7-18); CARBON DIOXIDE LEVEL 23 MEQ/L (21-32); CHLORIDE LEVEL 121 MEQ/L (98-107); CREATININE FOR GFR 1.16 MG/DL (0.70-1.30); GLOMERULAR FILTRATION RATE > 60.0 (>35); GLUCOSE, FASTING 106 MG/DL (70-100); POTASSIUM SERUM 3.8 MEQ/L (3.5-5.1); SODIUM LEVEL 151 MEQ/L (136-145)
[2020-08-10] MEDS: LR 1,000 ML IV SCH ×2 (05:50→13:51)
[2020-08-10] MEDS ORDERED: amLODIPine 5 MG TAB PO SCH (09:00)
[2020-08-10] MEDS: DOCUSATE SODIUM 100MG CAPSULE PO SCH (09:00)
[2020-08-10] MEDS: CLOPIDOGREL 75 MG TAB PO SCH (09:02)
[2020-08-10] MEDS: ASPIRIN 81MG ENTERIC TABLET PO SCH (09:03)
[2020-08-10 12:24] LABS: BLOOD UREA NITROGEN 28 MG/DL (7-18); CALCIUM LEVEL 8.7 MG/DL (8.8-10.2); CARBON DIOXIDE LEVEL 28 MEQ/L (21-32); CHLORIDE LEVEL 120 MEQ/L (98-107); CREATININE FOR GFR 1.11 MG/DL (0.70-1.30); GLOMERULAR FILTRATION RATE > 60.0 (>35); GLUCOSE, FASTING 110 MG/DL (70-100); POTASSIUM SERUM 4.2 MEQ/L (3.5-5.1); SODIUM LEVEL 151 MEQ/L (136-145)
[2020-08-10] MEDS ORDERED: ACETAMINOPHEN *IV* 650 MG in IV 1 EA IV ONE (13:00)
--- NOTE | 2020-08-10 13:06 | REP ---
INDICATION: Fever, aspiration. COMPARISON: Comparison radiograph August 08, 2020 TECHNIQUE: Portable upright AP chest radiograph. FINDINGS: There is an alveolar infiltrate in the left lower lobe behind the heart partially obscuring the left hemidiaphragm consistent with pneumonia. Heart is not enlarged. Interstitial markings are slightly prominent diffusely but unchanged. Pleural angles are sharp.. No is acute bony abnormality is appreciated. IMPRESSION: Left lower lobe infiltrate consistent with pneumonia.. <Electronically signed by Izaiah Morris > 08/10/20 [id number]
[2020-08-10] MEDS: PANTOPRAZOLE 40MG VIAL (C9113 PER 1) IV SCH (14:53)
[2020-08-10] MEDS: MEROPENEM INJ 1 GM in IV 1 EA IV SCH ×2 (14:54→22:15)
[2020-08-10] MEDS: D5W/0.45% SODIUM CHLORIDE 1,000 ML IV SCH ×2 (14:54→22:15)
--- NOTE | 2020-08-10 15:45 | REP ---
INDICATION: CVA, dysphagia. COMPARISON: None. TECHNIQUE: Helical scanning is acquired. 5 mm axial images were reformatted. Coronal MPR images were generated. FINDINGS: Bone window settings show an intact bony calvarium. Vascular calcifications again noted. No intraorbital abnormality is seen. On soft tissue window settings, today's study demonstrates low-density developing encephalomalacia corresponding to the right anterior cerebral artery distribution infarct displayed on the MRI study from August 07, 2020. There is no evidence of intracranial hemorrhage. No extra-axial fluid collection is seen. No other change. IMPRESSION: Low-density area in the distribution of the right anterior cerebral artery territory consistent with recent infarction and corresponding to MRI study pattern from August 07, 2020. There is no evidence of intracranial hemorrhage.. <Electronically signed by Izaiah Morris > 08/10/20 [id number]
--- NOTE | 2020-08-10 18:22 | IPNPDOC ---
Subjective Date Seen The patient was seen on 08/10/20. Subjective Chief Complaint/HPI Mr. Caballero is an 80 year old male without medical history who presents with left sided weakness. This morning, he was still weak and his voice was week. He was about to cough, but clearance is poor. He has been taking medications crushed in applesauce. This afternoon, he had a temperature of 100.3. CXR is suggestive of pneumonia. Will obtain blood cultures and start patient on antibiotics. Objective Physical Examination General Exam: Positive: Alert, Cooperative, Other (Weakn and frail) Eye Exam: Negative: Sclera icteric Chest Exam: Positive: Rhonchi Heart Exam: Positive: Rate Normal, Regular Rhythm Abdomen Exam: Positive: Normal bowel sounds, Soft; Negative: Tenderness Extremity Exam: Negative: Edema Skin Exam: Positive: Other skin issue (Bruising of left arm) Neuro Exam: Negative: Strength at 5/5 X4 ext (Left arm and leg weakness) Psych Exam: Positive: Mental status NL, Mood NL Assessment /Plan Assessment Mr. Caballero is an 80 year old male without medical history who presents with left sided weakness. Resolved in the ED. MRI later that evening demonstrated acute/subacute infarcts in the right SALLY regions. Morning after admission, he was doing well, but later in the afternoon started to decline. Left sided weakness returned with dysphagia. Will continue with permissive hypertension. He is unable to swallow pills, will use rectal aspirin. If he is not able to have a safe diet by Wednesday, may need to consider TPN Plan/VTE VTE Prophylaxis Ordered?: Yes Plan 1. Acute/subacute right SALLY CVA -Left sided weakness and dysphagia -Speech therapy following, recommendations appreciated -CT angio head and neck demonstrated calcification, but no significant stenosis -Echocardiogram negative for clots. Tele negative for atrial fibrillation -Continue aspirin rectally. No rectal statin available -Maintain blood pressure between 140 to 170. 2. Aspiration pneumonia -CXR positive for aspiration pneumonia -Ordered for blood and sputum cultures -Started Meropenem -Speech therapy following -Strict NPO 3. Hypernatremia -Secondary to NS and dehydration -Change fluids to D5W/0.45NS 4. Hypertension -Allow for permissive hypertension at this time for neurologic symptoms 5. DVT ppx -SCD and TEDs Disposition: Pending clinical improvement. Will need rehab when medically stable VS, I&O, 24H, Fishbone Vital Signs/I&O Vital Signs Date Time Temp Pulse Resp B/P (MAP) Pulse Ox O2 Delivery O2 Flow Rate FiO2 08/10/20 16:00 8.0 08/10/20 16:00 99.1 95 20 150/50 (83) 96 High Flow Cannula I&O- Last 24 Hours up to 6 AM 08/10/20 06:00 Intake Total 500 ml Output Total 1000 ml Balance -500 ml Laboratory Data 24H LABS Laboratory Tests 2 08/10/20 04:54: Nucleated Red Blood Cells % (auto) 0.0, Anion Gap 7L, Glomerular Filtration Rate > 60.0, Calcium Level 9.0 08/10/20 11:53: Anion Gap 3L, Glomerular Filtration Rate > 60.0, Calcium Level 8.7L CBC/BMP Laboratory Tests 08/10/20 04:54 08/10/20 11:53 Microbiology Microbiology 08/10/20 Blood Culture, Received Pending 08/10/20 Blood Culture, Received Pending HUGO DELACRUZ 27, 2021 18:22
[2020-08-10] MEDS: ACETAMINOPHEN 650 MG SUPP PR PRN (22:42)
[2020-08-11] VITALS (8 sets, daily range): BP systolic 160–200; BP diastolic 68–88
[2020-08-11] MEDS: hydrALAZINE 20MG/ML 1ML VIAL (J0360 PER 20MG) IV PRN ×3 (04:44→20:51)
[2020-08-11] MEDS: D5W/0.45% SODIUM CHLORIDE 1,000 ML IV SCH ×3 (05:24→20:27)
[2020-08-11] MEDS: MEROPENEM INJ 1 GM in IV 1 EA IV SCH ×3 (05:24→20:27)
[2020-08-11 05:55] LABS: HEMATOCRIT 45.3 % (42.0-52.0); HEMOGLOBIN 14.5 g/dl (13.5-17.5); MEAN CORPUSCULAR HEMOGLOBIN 30.8 pg (27.0-33.0); MEAN CORPUSCULAR VOLUME 96.2 fl (80.0-96.0); PLATELET COUNT, AUTOMATED 177 10^3/uL (150-450); RED BLOOD COUNT 4.71 10^6/uL (4.30-6.10); WHITE BLOOD COUNT 13.1 10^3/uL (4.0-10.0)
[2020-08-11 06:00] LABS: BLOOD UREA NITROGEN 24 MG/DL (7-18); CALCIUM LEVEL 8.8 MG/DL (8.8-10.2); CARBON DIOXIDE LEVEL 26 MEQ/L (21-32); CHLORIDE LEVEL 121 MEQ/L (98-107); CREATININE FOR GFR 1.07 MG/DL (0.70-1.30); GLOMERULAR FILTRATION RATE > 60.0 (>35); GLUCOSE, FASTING 141 MG/DL (70-100); POTASSIUM SERUM 3.7 MEQ/L (3.5-5.1); SODIUM LEVEL 151 MEQ/L (136-145)
[2020-08-11] MEDS ORDERED: LABETALOL 100MG/20ML VIAL IV STA (07:53)
[2020-08-11] MEDS: PANTOPRAZOLE 40MG VIAL (C9113 PER 1) IV SCH (08:17)
[2020-08-11] MEDS: ASPIRIN 300 MG SUPP PR SCH (08:17)
--- NOTE | 2020-08-11 15:49 | IPNPDOC ---
Subjective Date Seen The patient was seen on 08/11/20. Subjective Chief Complaint/HPI Mr. Caballero is an 80 year old male without medical history who presents with left sided weakness. This morning, still has left sided weakness. He is able to speak a little stronger and his voice is clear after keeping him strict NPO. He moves his right side well and would use his right arm to help reposition himself in bed. Denies chest pain or dyspnea. Objective Physical Examination General Exam: Positive: Alert, Cooperative, Other (Weakn and frail) Eye Exam: Negative: Sclera icteric Chest Exam: Positive: Rhonchi Heart Exam: Positive: Rate Normal, Regular Rhythm Abdomen Exam: Positive: Normal bowel sounds, Soft; Negative: Tenderness Extremity Exam: Negative: Edema Skin Exam: Positive: Other skin issue (Bruising of left arm) Neuro Exam: Negative: Strength at 5/5 X4 ext (Left arm and leg weakness) Psych Exam: Positive: Mental status NL, Mood NL Assessment /Plan Assessment Mr. Caballero is an 80 year old male without medical history who presents with left sided weakness. Resolved in the ED. MRI later that evening demonstrated acute/subacute infarcts in the right SALLY regions. Morning after admission, he was doing well, but later in the afternoon started to decline. Left sided w eakness returned with dysphagia. Will continue with permissive hypertension. He is unable to swallow pills, will use rectal aspirin. If he is not able to have a safe diet by Wednesday, may need to consider TPN Plan/VTE VTE Prophylaxis Ordered?: Yes Plan 1. Acute/subacute right SALLY CVA -Left sided weakness and dysphagia -Speech therapy following, recommendations appreciated -CT angio head and neck demonstrated calcification, but no significant stenosis -Echocardiogram negative for clots. Tele negative for atrial fibrillation -Continue aspirin rectally. No rectal statin available -Maintain blood pressure between 140 to 170. 2. Aspiration pneumonia -CXR positive for aspiration pneumonia -Ordered for blood and sputum cultures -Meropenem day 2 -Speech therapy following -Strict NPO 3. Hypernatremia -Secondary to NS and dehydration -Change fluids to D5W/0.45NS 4. Hypertension -Allow for permissive hypertension at this time for neurologic symptoms 5. DVT ppx -SCD and TEDs Disposition: Pending clinical improvement. Will need rehab when medically stable. On Wednesday, will have speech/swallow therapy re-evaluate for swallowing. If he is not able to swallow, he may need TPN VS, I&O, 24H, Fishbone Vital Signs/I&O Vital Signs Date Time Temp Pulse Resp B/P (MAP) Pulse Ox O2 Delivery O2 Flow Rate FiO2 08/11/20 15:36 180/78 08/11/20 12:00 99.4 83 20 97 High Flow Cannula 8.0 I&O- Last 24 Hours up to 6 AM 08/11/20 06:00 Intake Total 1350 ml Output Total 1250 ml Balance 100 ml Laboratory Data 24H LABS Laboratory Tests 2 08/11/20 05:22: Nucleated Red Blood Cells % (auto) 0.0, Anion Gap 4L, Glomerular Filtration Rate > 60.0, Calcium Level 8.8 CBC/BMP Laboratory Tests 08/11/20 05:22 Microbiology Microbiology 08/10/20 Blood Culture - Preliminary, Resulted No growth after 24 hours . All specim... 08/10/20 Blood Culture - Preliminary, Resulted HUGO DELACRUZ 28, 2021 15:49
[2020-08-12] VITALS (8 sets, daily range): BP systolic 144–186; BP diastolic 62–88
[2020-08-12] MEDS: D5W/0.45% SODIUM CHLORIDE 1,000 ML IV SCH ×4 (03:58→19:34)
[2020-08-12 05:17] LABS: HEMATOCRIT 40.3 % (42.0-52.0); MEAN CORPUSCULAR HEMOGLOBIN 30.3 pg (27.0-33.0); MEAN CORPUSCULAR HGB CONC 32.3 g/dl (32.0-36.5); MEAN CORPUSCULAR VOLUME 93.9 fl (80.0-96.0); PLATELET COUNT, AUTOMATED 183 10^3/uL (150-450); RED BLOOD COUNT 4.29 10^6/uL (4.30-6.10); WHITE BLOOD COUNT 11.5 10^3/uL (4.0-10.0)
[2020-08-12] MEDS: MEROPENEM INJ 1 GM in IV 1 EA IV SCH ×3 (05:22→22:24)
[2020-08-12] MEDS: hydrALAZINE 20MG/ML 1ML VIAL (J0360 PER 20MG) IV PRN ×2 (05:23→18:38)
[2020-08-12 05:41] LABS: BLOOD UREA NITROGEN 20 MG/DL (7-18); CALCIUM LEVEL 8.1 MG/DL (8.8-10.2); CARBON DIOXIDE LEVEL 30 MEQ/L (21-32); CHLORIDE LEVEL 120 MEQ/L (98-107); CREATININE FOR GFR 0.97 MG/DL (0.70-1.30); GLOMERULAR FILTRATION RATE > 60.0 (>35); GLUCOSE, FASTING 132 MG/DL (70-100); POTASSIUM SERUM 3.5 MEQ/L (3.5-5.1); SODIUM LEVEL 151 MEQ/L (136-145)
[2020-08-12] MEDS: ASPIRIN 300 MG SUPP PR SCH (10:50)
[2020-08-12] MEDS: PANTOPRAZOLE 40MG VIAL (C9113 PER 1) IV SCH (10:51)
--- NOTE | 2020-08-12 14:13 | IPNPDOC ---
Subjective Date Seen The patient was seen on 08/12/20. Subjective Chief Complaint/HPI Mr. Caballero is an 80 year old male without medical history who presents with left sided weakness. He is still persistent weak with the left side, unchanged from yesterday. Unable to lift left arm, but has a very weak squeeze. Unable to move left leg or foot. Swallowing has not improved. Continue with NPO. Planning to start TPN. Ordered for PICC line today. Spoke with nephrology due to patient's hypernatremia. Recommendations on TPN appreciated. Reached out to neurology again (new neurologist on this week) since he has not improved. Recommendations appreciated. . Objective Physical Examination General Exam: Positive: Alert, Cooperative, Other (Weak and frail) Eye Exam: Negative: Sclera icteric Chest Exam: Positive: Rhonchi Heart Exam: Positive: Rate Normal, Regular Rhythm Abdomen Exam: Positive: Normal bowel sounds, Soft; Negative: Tenderness Extremity Exam: Negative: Edema Skin Exam: Positive: Other skin issue (Bruising of left arm) Neuro Exam: Negative: Strength at 5/5 X4 ext (Left arm and leg weakness) Psych Exam: Positive: Mental status NL, Mood NL Assessment /Plan Assessment Mr. Caballero is an 80 year old male without medical history who presents with left sided weakness. Resolved in the ED. MRI later that evening demonstrated acute/subacute infarcts in the right SALLY regions. Morning after admission, he was doing well, but later in the afternoon started to decline. Left sided weakness returned with dysphagia. Will continue with permissive hypertension. He is unable to swallow pills, will use rectal aspirin. No safe diet today. Will place PICC line. Spoke with nephrology due to hypernatremia and TPN choice. Plan for TPN tomorrow. Otherwise, reached out to n eurology to re-evaluate patient. Plan/VTE VTE Prophylaxis Ordered?: Yes Plan 1. Acute/subacute right SALLY CVA -Left sided weakness and dysphagia -Speech therapy following, recommendations appreciated -CT angio head and neck demonstrated calcification, but no significant stenosis -Echocardiogram negative for clots. Tele negative for atrial fibrillation -Continue aspirin rectally. No rectal statin available -Maintain blood pressure between 140 to 170. -Neurology consulted, recommendations appreciated 2. Aspiration pneumonia -CXR positive for aspiration pneumonia -Ordered for blood and sputum cultures -Meropenem day 3 -Speech therapy following -Strict NPO 3. Hypernatremia -Secondary to NS and dehydration -Change fluids to D5W/0.45NS -Nephrology consulted, recommendations appreciated 4. Hypertension -Allow for permissive hypertension at this time for neurologic symptoms 5. DVT ppx -SCD and TEDs Disposition: Placing PICC line, nephrology consulted for TPN choice. Neurology to see patient physically VS, I&O, 24H, Fishbone Vital Signs/I&O Vital Signs Date Time Temp Pulse Resp B/P (MAP) Pulse Ox O2 Delivery O2 Flow Rate FiO2 08/12/20 11:54 97.8 97 20 172/74 (106) 97 Nasal Cannula 8.0 I&O- Last 24 Hours up to 6 AM 08/12/20 06:00 Intake Total 950 ml Output Total 1100 ml Balance -150 ml Laboratory Data 24H LABS Laboratory Tests 2 08/12/20 04:59: Nucleated Red Blood Cells % (auto) 0.0, Anion Gap 1L, Glomerular Filtration Rate > 60.0, Calcium Level 8.1L CBC/BMP Laboratory Tests 08/12/20 04:59 Microbiology Microbiology 08/10/20 Blood Culture - Preliminary, Resulted No Growth after 48 hours. All Specime... 08/10/20 Blood Culture - Preliminary, Resulted HUGO DELACRUZ DO Aug 12, 2020 14:13
[2020-08-12] MEDS ORDERED: LIDOCAINE 1% MDV 20ML VIAL As Ordered ONE (16:19)
--- NOTE | 2020-08-12 18:13 | REP ---
PROCEDURE NAME: PICC LINE INSERTION W/SITERITE CLINICAL INFORMATION: TPN. COMPARISON: None. PROCEDURE DESCRIPTION: The procedure was performed by MARTHA Chester, under the direct supervision of Dr. Morris. The risks and benefits of the procedure were explained to the patient and an informed consent was obtained both verbally and written. Directly prior to the start of the procedure a formal time-out was completed in the procedure room. The right medial brachial vein was localized using ultrasound guidance. The skin was prepped and draped in sterile fashion. Two mL of 1% lidocaine 10 mg/mL was used as a local anesthetic. Using ultrasound guidance the right medial brachial vein was cannulated, and a 0.018 guidewire was inserted and advanced to the level of SVC using fluoroscopic guidance. The needle was removed and a 5.5 Polish dilator and peel-away sheath was inserted over the guidewire. A 5.5 Polish dual lumen catheter was cut to a length of 40 cm. The dilator was removed and the catheter was inserted over the guidewire with the tip ending at the level of the SVC. The peel-away sheath was removed and the catheter was flushed with heparinized saline as per hospital protocol. The catheter was affixed to the skin and a sterile dressing was applied. The patient tolerated the procedure well and there were no immediate complications. CONCLUSION: PICC line insertion into the right medial brachial vein. 0.1 minutes of fluoroscopy time was utilized for this procedure. Some fluoroscopic images are performed with last image hold technology. These images require no additional radiation. <Electronically signed by Adela Angel > 08/12/20 [id number] <Electronically signed by Izaiah Morris > 08/12/20 [id number]
[2020-08-12] MEDS ORDERED: METOPROLOL 5 MG/5 ML VIAL IV STA (22:07)
[2020-08-13] VITALS (7 sets, daily range): BP systolic 154–184; BP diastolic 76–88
[2020-08-13] MEDS: D5W/0.45% SODIUM CHLORIDE 1,000 ML IV SCH ×2 (01:45→09:39)
[2020-08-13 05:57] LABS: HEMATOCRIT 40.3 % (42.0-52.0); HEMOGLOBIN 12.9 g/dl (13.5-17.5); MEAN CORPUSCULAR HEMOGLOBIN 30.3 pg (27.0-33.0); MEAN CORPUSCULAR VOLUME 94.6 fl (80.0-96.0); PLATELET COUNT, AUTOMATED 195 10^3/uL (150-450); RED BLOOD COUNT 4.26 10^6/uL (4.30-6.10); WHITE BLOOD COUNT 10.9 10^3/uL (4.0-10.0)
[2020-08-13 06:14] LABS: BLOOD UREA NITROGEN 17 MG/DL (7-18); CARBON DIOXIDE LEVEL 29 MEQ/L (21-32); CHLORIDE LEVEL 116 MEQ/L (98-107); CREATININE FOR GFR 0.87 MG/DL (0.70-1.30); GLOMERULAR FILTRATION RATE > 60.0 (>35); GLUCOSE, FASTING 122 MG/DL (70-100); POTASSIUM SERUM 3.3 MEQ/L (3.5-5.1); SODIUM LEVEL 148 MEQ/L (136-145)
[2020-08-13] MEDS: SODIUM CHLORIDE 0.9% INJ 10 ML SYR IV SCH ×2 (06:28→18:14)
[2020-08-13] MEDS: MEROPENEM INJ 1 GM in IV 1 EA IV SCH ×3 (06:28→22:02)
[2020-08-13] MEDS ORDERED: hydrALAZINE 20MG/ML 1ML VIAL (J0360 PER 20MG) IV PRN (07:50)
[2020-08-13] MEDS: ASPIRIN 300 MG SUPP PR SCH (09:37)
[2020-08-13] MEDS: PANTOPRAZOLE 40MG VIAL (C9113 PER 1) IV SCH (09:38)
[2020-08-13] MEDS ORDERED: METOPROLOL 5 MG/5 ML VIAL IV PRN (10:20)
[2020-08-13] MEDS: KCL 10MEQ/100ML SWI (KRUN) 10 MEQ in IV 1 EA IV SCH ×2 (10:58→12:22)
[2020-08-13] MEDS ORDERED: FUROSEMIDE 40MG/4ML VIAL (J1940) IV ONE (11:00)
--- NOTE | 2020-08-13 13:37 | CR ---
NEPHROLOGY CONSULTATION DATE: 08/13/2020 REQUESTING PHYSICIAN: Benjamin Miller D.O. REASON FOR CONSULTATION: Hyponatremia and need for total parenteral nutrition (TPN). HISTORY OF PRESENT ILLNESS: Mr. Caballero is an 80-year-old gentleman who was admitted to [facility] on August 06, 2020 due to left-sided weakness. He is felt to have initially a transient ischemic attack (TIA). However, he seems to have a stroke with persistent weakness on the left side. Patient has been unable to swallow properly and he is receiving intravenous (IV) fluids. He has developed hypernatremia and is currently receiving D5 and half-normal saline intravenously at 150 mL/hour. Nephrology consultation was requested due to need for TPN and electrolyte abnormality. PAST MEDICAL HISTORY: Patient does have a history of hypertension; however, he was not on any medications at home. PAST SURGICAL HISTORY: Unremarkable. ALLERGIES: No known drug allergies. MEDICATIONS: He was just recently given amlodipine and Toradol from the emergency room visit, but he was not taking any other medications. FAMILY HISTORY: There is family history of heart disease in the family, but no history of stroke or kidney problems. PERSONAL AND SOCIAL HISTORY: Patient is an active smoker. He denies any alcohol or drug use. REVIEW OF SYSTEMS: Patient is able to nod his head and not able to talk at present. There is no history of fever or chills. Since admission, he has not been eating and receiving IV fluid. He has developed left-sided weakness and left facial droop. EYES, EARS, NOSE AND THROAT: Unremarkable. CARDIOVASCULAR SYSTEM: Significant for history of hypertension. His echocardiogram did show normal systolic function, but some diastolic abnormality. GASTROINTESTINAL (GI) SYSTEM: Significant for inability to swallow since he had stroke. GENITOURINARY () SYSTEM: Negative for dysuria or hematuria. MUSCULOSKELETAL SYSTEM: Significant for left-sided weakness. He does have some dressing on his left knee. NEUROLOGICAL: Patient has been diagnosed with new stroke on the left side. He is unable to talk at present. HEMATOLOGICAL SYSTEM: Negative for any easy bruising or excessive bleeding. SKIN: Significant for some lacerations on his knee, left side. MEDICATIONS: He is currently receiving: - IV fluid D5 half normal saline at 150 mL/hour - labetalol 10 mg as needed for hypertension - metoprolol 5 mg as needed for hypertension - heparin - aspirin 300 mg daily - Tylenol as needed for pain - meropenem 1 gram every 8 hours for pneumonia - Protonix 40 mg daily - Zofran 4 mg every 6 hours as needed for nausea PHYSICAL EXAMINATION: Temperature 98.2 degrees Fahrenheit, heart rate 82 per minute, respiratory rate 18 per minute, blood pressure 160/80 mmHg, oxygen saturation 97% on 8 liters oxygen. HEAD: Atraumatic. NECK: Supple and jugular venous distention (JVD) is markedly elevated. HEART SOUNDS: Regular. LUNGS: Diminished breath sounds and basal crepitus. ABDOMEN: Soft and nontender. Bowel sounds are normal. EXTREMITIES: Without any cyanosis or clubbing. NEUROLOGIC: He has flattening of left nasolabial fold and weakness of his left upper and lower extremities. LABORATORY DATA: Today's labs show WBC 10.9, hemoglobin 12.9, hematocrit 40.3. Yesterday, his sodium was 151, potassium 3.5, chloride 120, CO2 30, BUN 20, creatinine 0.97, glucose 132, calcium 8.1. Today, his sodium is 148, potassium 3.3. The rest of his chemistry is essentially about the same. PROBLEMS: 1. Hypernatremia. This is most likely related to IV fluids and inability to drink any free water. This will be corrected with TPN. His current IV fluid is being stopped. 2. Hypokalemia. This is nutritional and we will add 60 mEq of potassium chloride in the bag of TPN. Electrolytes should be checked on a daily basis. 3. Hypervolemia. Patient has significant hypervolemia and I am going to give him one dose of Lasix 40 mg today. We will cut down the rate of TPN to 60 mL/hour along with 20 mL of fat emulsion. We will use Lasix as needed and correct his volume status. 4. Nutrition. Patient is unable to swallow and I have been asked to write his TPN orders. I did write a special formula TPN for him. Thank you for involving me in the care of Mr. Caballero. I will follow him along with you.
--- NOTE | 2020-08-13 14:45 | IPNPDOC ---
Text Note Date of Service The patient was seen on 08/13/20. NOTE Subjective: No any acute events overnight. Patient was alert, awake and oriented in the morning. Blood pressure was elevated in the morning to 184/80 Objective: GENERAL APPEARANCE: NAD HEENT: no scleral icterus, no JVD, EOMI CARDIOVASCULAR: S1S2 LUNGS: Diminished lung sounds bilaterally ABDOMEN: soft & not tender w palpitation MUSCULOSKELETAL: no cyanosis, no swelling INTEGUMENT: no generalized pallor NEUROLOGICAL: Left hemiplegia, deficiency of left cranial nerves V and VII, follows command, left mouth droop Assessment and Plan Pt is an 80 year old male without medical history who presents with left sided weakness. Resolved in the ED. MRI later that evening demonstrated acute/subacute infarcts in the right SALLY regions Acute/subacute right SALLY CVA Left hemiplegia and dysphagia Nothing by mouth for now Speech evaluation daily No atrial fibrillation on telemetry or EKG Echo showed Normal global left ventricular systolic function with mild concentric left ventricular hypertrophy. There are some features of left ventricular diastolic dysfunction manifested by abnormal relaxation Continue aspirin rectally Appreciate/agree with neurologist consult Aspiration pneumonia/dysphagia X-ray showed Left lower lobe infiltrate consistent with pneumonia Continue meropenem day 4 Speech eval daily Most likely pt will need PEG tube placement Hypernatremia We'll add additional water to TPN Hypertension Labetalol IV when necessary Hypokalemia Continue potassium supplementation by TPN DVT ppx Heparin 5000 BID VS,Fishbone, I+O VS, Fishbone, I+O Laboratory Tests 08/13/20 05:14 Vital Signs Date Time Temp Pulse Resp B/P (MAP) Pulse Ox O2 Delivery O2 Flow Rate FiO2 08/13/20 11:15 98.2 83 18 97 Nasal Cannula 8.0 08/13/20 10:10 160/80 (106) I&O- Last 24 Hours up to 6 AM 08/13/20 06:00 Intake Total 1910 ml Output Total 1025 ml Balance 885 ml VICKY ALEGRE DO Aug 13, 2020 14:45
[2020-08-13] MEDS ORDERED: POTASSIUM PHOSPHATE IV SCH ×5 (18:00)
[2020-08-13] MEDS: HumaLOG INSULIN (NovoLOG) PER UNIT SC SCH (18:00)
[2020-08-13] MEDS ORDERED: [UNRECOGNIZED DRUG - OTHER] IV SCH ×5 (18:00)
[2020-08-13] MEDS ORDERED: POTASSIUM CHLORIDE IV SCH ×5 (18:00)
--- NOTE | 2020-08-13 21:34 | REPVR ---
PROCEDURE INFORMATION: Exam: MR Head Without Contrast Exam date and time: 08/13/2020 9:05 PM Age: 80 years old Clinical indication: Other: Stroke, left hemiplegia TECHNIQUE: Imaging protocol: MR of the head without contrast. COMPARISON: MRI-Brain without Contrast 08/07/2020 9:06 PM FINDINGS: Motion limited examination. Moderate to severe volume loss. Major vascular flow voids at the skull base are preserved. No extra-axial fluid collection. Nonspecific white matter gliosis, probable chronic microvascular ischemia. There is paramedian diffusion restriction involving the right frontal and parietal lobes with associated T2 prolongation and edema; Mild paranasal sinus disease. Small bilateral mastoid effusions. IMPRESSION: Subacute right SALLY ischemic infarct. Interval progression in edema. Electronically signed by: Rishi Morrison On 08/13/2020 21:34:18 PM
[2020-08-13] MEDS: HEPARIN SOD (PORCINE) 5000UNITS/ML 1ML VIAL/SYRINGE SQ SCH (22:02)
[2020-08-14] VITALS (10 sets, daily range): BP systolic 140–200; BP diastolic 66–84
[2020-08-14] MEDS: HumaLOG INSULIN (NovoLOG) PER UNIT SC SCH ×4 (01:08→18:00)
[2020-08-14] MEDS: LABETALOL 100MG/20ML VIAL IV PRN ×2 (04:39→08:34)
[2020-08-14 06:19] LABS: HEMATOCRIT 41.8 % (42.0-52.0); HEMOGLOBIN 13.4 g/dl (13.5-17.5); MEAN CORPUSCULAR HEMOGLOBIN 30.2 pg (27.0-33.0); MEAN CORPUSCULAR HGB CONC 32.1 g/dl (32.0-36.5); MEAN CORPUSCULAR VOLUME 94.4 fl (80.0-96.0); PLATELET COUNT, AUTOMATED 212 10^3/uL (150-450); RED BLOOD COUNT 4.43 10^6/uL (4.30-6.10)
[2020-08-14 06:42] LABS: BLOOD UREA NITROGEN 21 MG/DL (7-18); CALCIUM LEVEL 8.4 MG/DL (8.8-10.2); CARBON DIOXIDE LEVEL 32 MEQ/L (21-32); CHLORIDE LEVEL 113 MEQ/L (98-107); GLOMERULAR FILTRATION RATE > 60.0 (>35); GLUCOSE, FASTING 138 MG/DL (70-100); MAGNESIUM LEVEL 2.1 MG/DL (1.8-2.4); PHOSPHORUS LEVEL 2.4 MG/DL (2.5-4.9); POTASSIUM SERUM 3.5 MEQ/L (3.5-5.1); SODIUM LEVEL 147 MEQ/L (136-145)
[2020-08-14] MEDS: MEROPENEM INJ 1 GM in IV 1 EA IV SCH ×3 (06:50→20:55)
[2020-08-14] MEDS: SODIUM CHLORIDE 0.9% INJ 10 ML SYR IV SCH ×2 (06:51→17:59)
[2020-08-14] MEDS ORDERED: KCL 10MEQ/100ML SWI (KRUN) 10 MEQ in IV 1 EA IV ONE (08:00)
[2020-08-14 08:23] LABS: NT-PRO BNP 1459 PG/ML (<450)
[2020-08-14] MEDS: PANTOPRAZOLE 40MG VIAL (C9113 PER 1) IV SCH (08:34)
[2020-08-14] MEDS: ASPIRIN 300 MG SUPP PR SCH (08:34)
[2020-08-14] MEDS: HEPARIN SOD (PORCINE) 5000UNITS/ML 1ML VIAL/SYRINGE SQ SCH ×2 (08:34→20:54)
--- NOTE | 2020-08-14 08:59 | CR ---
CONSULTATION DATE: 08/12/2020 REFERRING PHYSICIAN: Benjamin Miller DO REASON FOR CONSULTATION: Left hemiplegia. HISTORY OF PRESENT ILLNESS: Adonis Caballero is an 80-year-old man who presented to [facility] on August 07, 2019 with left-sided weakness. He initially tripped and fell on that Wednesday and landed on his chest. He was able to get back up. He had some chest pain for which he went to urgent care. Urgent care sent him to hospital. His imaging was unremarkable for fracture for pain. He was given ketorolac. The patient did not want to stay and went home even though he had hypertensive urgency. He was given amlodipine and ketorolac and went home. At home, he was trying to reach into his car to pick up operator something and leaned backwards and fell. He did not lose consciousness. He felt his left leg was weak. His landlord was there and helped him get up and called ambulance. In the emergency department he was noted to have dysarthria, left-sided facial droop, left arm and leg weakness. CT scan of head, CTA of head and neck were unremarkable for acute disease. An hour after his symptoms started they completely resolved. Neurology was consulted. The patient was admitted for TIA. The next day in the afternoon his symptoms recurred and he developed dysarthria, dysphagia, left hemiplegia and his symptoms continue. He is currently unable to swallow and he has failed swallow evaluation. He was on aspirin and Plavix which was changed to aspirin per rectum only. He denies any headaches, neck or back pain, seizures, loss of consciousness. DIAGNOSTIC STUDIES: MRI scan of brain on August 06, 2020 were reviewed and showed acute multiple ischemic strokes in right anterior cerebral artery territory. 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 CT scan of head on August 10, 2020 was reviewed and showed findings consistent with stroke in right anterior cerebral artery territory. Sodium was 151. WBC was 11.5. Hemoglobin was 13. Total cholesterol was 152, LDL was 73 with HDL 68. PAST MEDICAL HISTORY: 1. Hypertension. 2. History of tobacco use. FAMILY HISTORY: Parents with history of heart disease. SOCIAL HISTORY: The patient smokes tobacco. HOME MEDICATIONS: 1. Amlodipine 5 mg p.o. daily. 2. Ketorolac 10 mg p.o. q.6 hours p.r.n. 3. The patient was started on aspirin and Plavix in the hospital which was later changed to rectal aspirin. REVIEW OF SYSTEMS: All systems are reviewed and found to be noncontributory except as mentioned in history of present illness. PHYSICAL EXAMINATION: VITAL SIGNS: Temperature 95.8, pulse 82, respiratory rate 18, blood pressure 166/75, 95% saturation on room air. HEART: Regular rate and rhythm. LUNGS: Clear to auscultation. ABDOMEN: Soft, nontender, nondistended. EXTREMITIES: No pedal edema. MUSCULOSKELETAL: No abnormalities. SKIN: No rash. NEUROLOGICAL: The patient is awake, alert, oriented to place, person and time. Normal speech, comprehension and repetition. Extraocular muscles are intact. Mild left-sided upper motor neuron type facial weakness. Strength in his left hand is 1/5 and left leg is 0/5. Right-sided strength is 5/5. Deep tendon reflexes are absent on the left side and 2+ on the right side. The left plantar is upgoing. Gait could not be tested. Left-sided cerebellar testing could not be performed. Right-sided testing of cerebellar function is normal. ASSESSMENT: 1. Right anterior cerebral artery ischemic stroke. 2. 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 3. 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 4. Dysarthria, dysphagia and left hemiplegia related to above. PLAN: 1. Repeat MRI scan of brain to see the exact size and rule out extension of ischemic stroke. 2. Aspirin 300 mg per rectum daily. 3. Swallow evaluation. 4. Consider PEG tube placement. 5. Physical and occupational therapy and rehabilitation. Inpatient rehabilitation should be considered.
[2020-08-14] MEDS: ACETAMINOPHEN 650 MG SUPP PR PRN (09:00)
[2020-08-14] MEDS ORDERED: VANCOMYCIN HCL 1,000 MG, VIAL MATE ADAPTER 1 EACH in NS 250 ML IV SCH (10:30)
--- NOTE | 2020-08-14 11:16 | REP ---
INDICATION: PNA. COMPARISON: 08/10/2020, 08/08/2020, 08/06/2020; CT 08/06/2020 TECHNIQUE: AP portable seated chest FINDINGS: The patchy left lower lobe infiltrate on 08/10/2020 exam is again seen with more consolidative density retrocardiac left lower lobe. There is also some patchy infrahilar infiltrate or atelectasis in the right base. Some vascular engorgement the upper lung zones but the vessel margins remain distinct. This suggests some pulmonary venous hypertension without brittani edema. No gross effusion. There has been placement of a PICC line via the right upper extremity terminating in the SVC. Calcified tortuous aortic arch without gross aneurysm. Heart size unchanged. No free air under the diaphragm. Degenerative changes in the spine and shoulders are mild. IMPRESSION: 1. Some increased density of the retrocardiac left lower lobe infiltrate and patchy infrahilar infiltrate/atelectasis in the right base. No gross effusion. 2. No cardiomegaly. Some venous hypertension without the brittani edema. Some mild underlying fibrosis makes early interstitial edema difficult to exclude. 3. Right-sided PICC line now present with tip in SVC. <Electronically signed by Duglas Mcnulty > 08/14/20 1112
[2020-08-14 11:22] LABS: BLOOD UREA NITROGEN 22 MG/DL (7-18); CALCIUM LEVEL 8.1 MG/DL (8.8-10.2); CARBON DIOXIDE LEVEL 30 MEQ/L (21-32); CHLORIDE LEVEL 115 MEQ/L (98-107); CREATININE FOR GFR 0.88 MG/DL (0.70-1.30); GLOMERULAR FILTRATION RATE > 60.0 (>35); GLUCOSE, FASTING 132 MG/DL (70-100); POTASSIUM SERUM 4.1 MEQ/L (3.5-5.1); SODIUM LEVEL 149 MEQ/L (136-145)
[2020-08-14] MEDS ORDERED: FUROSEMIDE 40MG/4ML VIAL (J1940) IV ONE (11:30)
--- NOTE | 2020-08-14 11:30 | REP ---
INDICATION: aMS. COMPARISON: MRI 08/13/2020, CT 08/10/2020. TECHNIQUE: CT BRAIN PERFORMED IN THE AXIAL PLANE. CORONAL RECONSTRUCTION IMAGES ARE PERFORMED. FINDINGS: Lateral ventricles are midline generally symmetric and mildly prominent proportionate to the diffuse cerebral atrophy. No midline shift. There is slight mass effect on the superior aspect of the anterior horn of the right lateral ventricle from the zone of developing encephalomalacia and edema in the right anterior cerebral artery distribution infarct as seen on previous CT and MRIs. The zone of encephalomalacia is progressing in its development extending toward cortical margins anteriorly and the falx. Appears to involve the genu of the corpus callosum to the right of midline. There is no intracranial hemorrhage. I see no new infarct. Heterogeneous low-attenuation white matter changes elsewhere in both hemispheres are stable. Basal ganglia are symmetric. Cortical stripe shows diffuse the atrophy unchanged and that atrophy greatest in the temporal lobes at the sylvian fissures all of this is stable. Third and 4th ventricles are also unchanged and mildly prominent brainstem unremarkable. Cerebellum shows some atrophy with no posterior fossa mass or hemorrhage. The basal cisterns are intact. The mastoids are clear there is some minor ethmoid sinus mucosal thickening. Deviation of the septum towards the left posteriorly. Orbits and contents as seen grossly symmetric and unremarkable. Calcifications in the carotid siphons are again seen. No fracture of the skull base or calvarium. IMPRESSION: Evolving subacute infarct of the right anterior cerebral artery territory with involvement of the genu of the corpus callosum on the right side and some slight mass effect on the roof of the anterior horn of the right lateral ventricle. No midline shift. No intracranial bleed. Diffuse cortical atrophy with ventricular size proportionate. Chronic small vessel white matter ischemic changes and vascular calcifications carotid siphons unchanged. No other significant or new finding. <Electronically signed by Duglas Mcnulty > 08/14/20 1124
[2020-08-14] MEDS ORDERED: VANCOMYCIN HCL 750 MG, VIAL MATE ADAPTER 1 EACH in NS 250 ML IV ONE ×4 (12:00→18:00)
[2020-08-14] MEDS: D5W 500 ML IV SCH ×2 (12:18→21:35)
--- NOTE | 2020-08-14 12:20 | IPN ---
NEPHROLOGY PROGRESS NOTE DATE: 08/14/2020 SUBJECTIVE: Mr. Caballero is seen this morning at his bedside. He remains nonverbal. His left sided weakness persists. He is receiving TPN for nutrition and is unable to swallow. Yesterday we gave him one dose of Lasix 40 mg with good response and slight improvement in the sodium level this morning. However a repeat chemistry showed sodium level up to 149. His potassium level has improved. The patient is still requiring 8 liters oxygen and continues to have a fever up to 101.7 degrees Fahrenheit this morning. OBJECTIVE: PHYSICAL EXAMINATION: VITAL SIGNS: Heart rate is 86 per minute, respiratory rate 20 per minute, blood pressure earlier it was 198/90 and most recent one is 140/70 mm of mercury. Oxygen saturation is 94% on 8 liters oxygen. INTAKE AND OUTPUT: Intake and output records yesterday showed a total output of 2,900 though intake is not accurate. HEENT: Left sided facial droop is unchanged. Oral mucosa is dry. NECK: His neck veins are difficult to be assessed. HEART: Regular. LUNGS: Bilateral dependent crepitus. ABDOMEN: Soft and nontender and bowel sounds are normal. EXTREMITIES: Without any cyanosis or clubbing. Left arm and left leg edema is present. NEUROLOGICAL: He remains awake but unable to communicate. Left sided weakness is unchanged. LABORATORY STUDIES: This morning labs showed sodium 147 and potassium 3.5. A repeat chemistry at 9:25 showed a sodium level of 149 and potassium 4.1. BUN 22 and creatinine 0.88. CO2 is 30 and calcium 8.1, glucose 132. This morning a BNP level was 1,459. PROBLEMS: 1. Hypernatremia - Sodium level initially improved, however has increased again. We are ordering TPN without any added sodium. Today I am going to give him 500 mL of d5w at 50 mL per hour in addition to TPN. Electrolytes will be checked again tomorrow. 2. Nutrition - TPN will continue at 60 mL per hour. We will rewrite his TPN orders for today. He will be given additional d5w 500 mL due to hypernatremia. 3. Congestive heart failure volume status improved but still decompensated. His BNP level is still 1,459. One does of Lasix 40 mg will be given again today. 4. Hypokalemia - potassium level has improved and we will continue with potassium supplements in the TPN though I am going to cut down the amount to 40 mEq. 5. Pneumonia - The patient remains febrile on antibiotics. He is receiving Vancomycin and Meropenem and antibiotics are managed by the Hospitalist Service. 6. Stroke with a left hemiparesis - The patient remains unchanged.
[2020-08-14 12:41] LABS: VENOUS PARTIAL PRESSURE CO2 48.2 mmHg (38.0-50.0)
[2020-08-14 12:42] LABS: VENOUS BASE EXCESS 2.8 (-2.0-2.0); VENOUS HCO3 28.5 MEQ/L (23.0-27.0); VENOUS O2 SATURATION 92.3 % (60.0-80.0); VENOUS STANDARD HCO3 26.9 MEQ/L
--- NOTE | 2020-08-14 13:51 | IPNPDOC ---
Text Note Date of Service The patient was seen on 08/14/20. NOTE Subjective: The morning patient changed his CODE STATUS to DNR/DNI. He refused PEG tube placement. Later this morning patient became confused, nonverbal. 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 Objective: GENERAL APPEARANCE: ill looking male HEENT: no scleral icterus, no JVD, EOMI CARDIOVASCULAR: S1S2 LUNGS: Diminished lung sounds bilaterally, gurgling sounds over trachea ABDOMEN: soft & not tender w palpitation MUSCULOSKELETAL: no cyanosis, no swelling INTEGUMENT: no generalized pallor NEUROLOGICAL: Left hemiplegia, non verbal, no nuchal rigidity Assessment and Plan Pt is an 80 year old male without medical history who presents with left sided weakness. Resolved in the ED. MRI later that evening demonstrated acute/subacute infarcts in the right SALLY regions Acute/subacute right SALLY CVA Left hemiplegia and dysphagia Nothing by mouth for now Patient refused PEG tube today No atrial fibrillation on telemetry or EKG Echo showed Normal global left ventricular systolic function with mild concentric left ventricular hypertrophy. There are some features of left ventricular diastolic dysfunction manifested by abnormal relaxation Continue aspirin rectally I repeated CT scan in the morning due to altered mental status, CT head did not show second stroke Aspiration pneumonia/dysphagia X-ray showed Left lower lobe infiltrate consistent with pneumonia Continue meropenem day 5. Patient developed fever in the morning, I added vancomycin IV Speech eval daily We'll check blood culture Today repeated Chest x-ray showed Some increased density of the retrocardiac left lower lobe infiltrate and patchy infrahilar infiltrate/atelectasis in the right base. No gross effusion. Hypernatremia Continue TPN without sodium, we'll give additional D5 5 100 mL Hypertension Labetalol IV every hour when necessary Hypokalemia Potassium level improved Continue potassium supplementation via TPN Palliative care encounter Prognosis remains poor. Appreciate/agree with palliative care consult and hospice consult DVT ppx Heparin 5000 BID VS,Fishbone, I+O VS, Fishbone, I+O Laboratory Tests 08/14/20 05:41 08/14/20 09:26 Vital Signs Date Time Temp Pulse Resp B/P (MAP) Pulse Ox O2 Delivery O2 Flow Rate FiO2 08/14/20 12:00 8.0 08/14/20 11:30 72 20 140/66 (90) 96 High Flow Cannula 3/31/21 09:45 98.7 I&O- Last 24 Hours up to 6 AM 08/14/20 06:00 Intake Total 650 ml Output Total 2800 ml Balance -2150 ml VICKY ALEGRE DO Aug 14, 2020 13:51
[2020-08-14] MEDS ORDERED: POTASSIUM PHOSPHATE IV SCH ×7 (18:00)
[2020-08-14] MEDS ORDERED: POTASSIUM CHLORIDE IV SCH ×7 (18:00)
[2020-08-14] MEDS ORDERED: [UNRECOGNIZED DRUG - OTHER] IV SCH ×7 (18:00)
[2020-08-15] VITALS (8 sets, daily range): BP systolic 140–193; BP diastolic 70–86
[2020-08-15] MEDS: HumaLOG INSULIN (NovoLOG) PER UNIT SC SCH ×4 (00:30→18:11)
[2020-08-15] MEDS ORDERED: VANCOMYCIN HCL 750 MG, VIAL MATE ADAPTER 1 EACH in NS 250 ML IV SCH (04:00)
[2020-08-15] MEDS: SODIUM CHLORIDE 0.9% INJ 10 ML SYR IV SCH ×2 (06:00→18:11)
[2020-08-15 06:07] LABS: HEMATOCRIT 40.4 % (42.0-52.0); HEMOGLOBIN 12.8 g/dl (13.5-17.5); MEAN CORPUSCULAR HEMOGLOBIN 30.5 pg (27.0-33.0); MEAN CORPUSCULAR HGB CONC 31.7 g/dl (32.0-36.5); MEAN CORPUSCULAR VOLUME 96.4 fl (80.0-96.0); PLATELET COUNT, AUTOMATED 199 10^3/uL (150-450); RED BLOOD COUNT 4.19 10^6/uL (4.30-6.10); WHITE BLOOD COUNT 9.8 10^3/uL (4.0-10.0)
[2020-08-15 06:26] LABS: BLOOD UREA NITROGEN 24 MG/DL (7-18); CALCIUM LEVEL 7.9 MG/DL (8.8-10.2); CARBON DIOXIDE LEVEL 30 MEQ/L (21-32); CHLORIDE LEVEL 110 MEQ/L (98-107); CREATININE FOR GFR 0.78 MG/DL (0.70-1.30); GLOMERULAR FILTRATION RATE > 60.0 (>35); GLUCOSE, FASTING 134 MG/DL (70-100); POTASSIUM SERUM 3.5 MEQ/L (3.5-5.1); SODIUM LEVEL 143 MEQ/L (136-145)
[2020-08-15] MEDS: MEROPENEM INJ 1 GM in IV 1 EA IV SCH ×3 (06:36→22:20)
[2020-08-15] MEDS: D5W 500 ML IV SCH (07:35)
[2020-08-15] MEDS ORDERED: OXYMETAZOLINE 0.05% NASAL SPRAY (AFRIN) PRN (09:00)
[2020-08-15] MEDS: ASPIRIN 300 MG SUPP PR SCH (09:00)
[2020-08-15] MEDS: HEPARIN SOD (PORCINE) 5000UNITS/ML 1ML VIAL/SYRINGE SQ SCH ×2 (09:01→20:08)
[2020-08-15] MEDS: PANTOPRAZOLE 40MG VIAL (C9113 PER 1) IV SCH (09:01)
[2020-08-15] MEDS: ACETAMINOPHEN 650 MG SUPP PR PRN (09:29)
--- NOTE | 2020-08-15 13:20 | IPNPDOC ---
Text Note Date of Service The patient was seen on 08/15/20. NOTE Subjective: In the morning patient was alert and oriented. Fiberscopic swallow ing test shows some improvement. No acute events overnight, no fever Objective: GENERAL APPEARANCE: ill looking male HEENT: no scleral icterus, no JVD, EOMI CARDIOVASCULAR: S1S2 LUNGS: Diminished lung sounds bilaterally, gurgling sounds over trachea ABDOMEN: soft & not tender w palpitation MUSCULOSKELETAL: no cyanosis, no swelling INTEGUMENT: no generalized pallor NEUROLOGICAL: Left hemiplegia, non verbal, no nuchal rigidity Assessment and Plan Pt is an 80 year old male without medical history who presents with left sided weakness. Resolved in the ED. MRI later that evening demonstrated acute/subacute infarcts in the right SALLY regions Acute/subacute right SALLY CVA Left hemiplegia and dysphagia Fiberscopic swallowing test shows some improvement. Diet was modified to nectar thickening liquids No atrial fibrillation on telemetry or EKG Echo showed Normal global left ventricular systolic function with mild concentric left ventricular hypertrophy. There are some features of left ventricular diastolic dysfunction manifested by abnormal relaxation Continue aspirin rectally Aspiration pneumonia/dysphagia X-ray showed Left lower lobe infiltrate consistent with pneumonia Speech eval daily Await repeated blood culture Procalcitonin 0.09, patient is afebrile, no leukocytosis. No fever for past 24 hours. Vancomycin was discontinued. We will discontinue meropenem if blood culture negative Hypernatremia Resolved Continue TPN without sodium Hypertension Labetalol IV every hour when necessary Hypokalemia Potassium level improved Continue potassium supplementation via TPN Palliative care encounter Prognosis remains poor. Appreciate/agree with palliative care consult and hospice consult DVT ppx Heparin 5000 BID VS,Fishbone, I+O VS, Fishbone, I+O Laboratory Tests 08/15/20 05:21 Vital Signs Date Time Temp Pulse Resp B/P (MAP) Pulse Ox O2 Delivery O2 Flow Rate FiO2 08/15/20 12:00 99.3 81 20 172/86 (114) 93 High Flow Cannula 5.0 I&O- Last 24 Hours up to 6 AM 08/15/20 06:00 Intake Total 1545 ml Output Total 3525 ml Balance -1980 ml VICKY ALEGRE DO Aug 15, 2020 13:20
--- NOTE | 2020-08-15 13:43 | IPN ---
PROGRESS NOTE DATE: 08/15/2020 Mr. Caballero is seen this morning on his bedside. He is getting ready for occupational therapy evaluation. He is sitting in the bed at present with head elevated at about 75 degrees. Patient is able to interact and respond by waving his right hand. His left-sided weakness persists unchanged. He is receiving total parenteral nutrition (TPN) due to recent stroke and inability to swallow. PHYSICAL EXAMINATION: Temperature 99.3 degrees Fahrenheit, heart rate 88 per minute, respiratory rate 20 per minute, blood pressure 156/74 mmHg, and oxygen saturation 96%. His head is atraumatic. Neck supple, and jugular venous distention (JVD) does not seem to be abnormally elevated, though difficult to be assessed. Oral mucosa is dry. Heart sounds are regular and lungs with scattered rhonchi and basilar crepitations. Abdomen soft and nontender, and bowel sounds are normal. Extremities without any cyanosis or clubbing. Left-sided hemiplegia is persistent. Today's labs show sodium 143, potassium 3.5, CO2 of 30, BUN 24, and creatinine 0.78. Calcium 7.9 WBC count 9.8, hemoglobin 12.8, and hematocrit 40.4. PROBLEMS: 1. Hypernatremia. Sodium level has corrected with intravenous (IV) fluid that was given yesterday in addition to total parenteral nutrition (TPN). At present, we will continue with just TPN at 75 mL per hour and not give him any more D5W. 2. Hypokalemia. His potassium level remains borderline low, and we are now going to give him diuretic today. We will continue with 30 mEq potassium in the TPN bath. 3. Nutrition. Pt is not able to swallow due to stroke. We will continue with TPN, and special formula TPN orders are being written. 4. Congestive heart failure and hypoxemia. His oxygen requirement has improved. We diuresed him significantly over the last couple of days with urine output about 3 liters. We will hold off on diuretic dose today and re-evaluate him tomorrow.
--- NOTE | 2020-08-15 17:03 | CR.PDOC ---
General Date of Consultation: Aug 15, 2020 Referring Provider: VICKY ALEGRE DO Primary Care Physician: A Attending Physician: VICKY ALEGRE DO Consultation REASON FOR CONSULTATION/CHIEF COMPLAINT: 80 year old admitted to [facility] with weakness. hemiplegia, was found to have acute/subacute right SALLY CVA. Yesterday he was unable to swallow anything, TPN was started. He indicated he wanted to "continue fighting" and had a swallow study and is now cleared to drink thic kened liquids. He and his family have agreed to DNR/DNI, no feeding tubes should he suffer another CVA or experience cardiopulmonary failure. Dr. Yu requested consultation for possible referral to palliative care clinic. HISTORY OF PRESENT ILLNESS: as above ALLERGIES: Please see below. HOME MEDICATIONS: Please see below. PAST MEDICAL HISTORY: 1. CVA with hemiplegia 2. aspiration pneumonia 3. CHF 4. HTN 5. tobacco use PAST SURGICAL HISTORY: none FAMILY HISTORY: heart disease SOCIAL HISTORY: Marital status and/or living arrangements: REVIEW OF SYSTEMS: CONSTITUTIONAL: denies fevers, up until CVA had no weakness HEENT: no vision changes, +dysphagia CARDIOVASCULAR: no chest pain or palpitations RESPIRATORY: denies dyspnea, occasional productive cough GENITOURINARY: no dysuria MUSCULOSKELETAL: denies joint or muscular pain GASTROINTESTINAL: denies constipation, diarrhea. SKIN: denuies rashes, breakdown NEUROLOGICAL: weakness on left side PSYCHIATRIC: denies depression some anxiety PHYSICAL EXAMINATION: VITAL SIGNS: Please see below. GENERAL APPEARANCE: Florid appearing male resting in bed with notable secretions in throat, he is able to cough them and clear his throat HEENT: oral mucosa moist RESPIRATORY: scattered rhonchi, decreased breath sounds bilateral bases CARDIOVASCULAR: RRR ABDOMEN: Obese, nontendern no guarding or rebound +BS EXTREMITIES: left arm and left leg edematous. No clubbing or cyanosis NEUROLOGICAL: left sided weakness PSYCHIATRIC: appears somewhat anxious, able to make his needs known LABORATORY DATA: Please see below. ASSESSMENT/PLAN: 1. CVA with hemiplegia. His daughter arrived while I was seeing this patient. He is not really a candidate for my clinic as it is outpatient only and he may have mobility issues moving forward. He and his family seems quite clear if he has another severe medical event, he does not want extraordinary measures taken, but he would like to try and see if he can improve some before giving up. His nurse reports he has made some progress since yesterday in terms of being able to tolerate thickened liquids, but he will very likely experience aspiration over time. He does not want a feeding tube. 2. CHF. improving and he denies dyspnea. 3. Goals of care: he does not have pain, dyspnea, nausea or any other symptoms for which I can make recommendations. He will need PT/OT and likely will need to be placed in a SNF for this. He is not really hospice appropriate at this t [facility] as he wishes to see if he can improve at all before accepting that option. If he develops another pneumonia, or CHF cannot be controlled or if he determines he would prefer to be at home with no further medical intervention, hospice should then be consulted if he expresses that desire. Vital Signs/I&O Vital Signs Date Time Temp Pulse Resp B/P (MAP) Pulse Ox O2 Delivery O2 Flow Rate FiO2 08/15/20 12:00 99.3 81 20 172/86 (114) 93 High Flow Cannula 5.0 I&O- Last 24 Hours up to 6 AM 08/15/20 06:00 Intake Total 1545 ml Output Total 3525 ml Balance -1980 ml Laboratory Data Labs 24H Laboratory Tests 2 08/14/20 18:12: Bedside Glucose (Misc Panel) 133H 08/15/20 00:15: Bedside Glucose (Misc Panel) 121H 08/15/20 05:21: Nucleated Red Blood Cells % (auto) 0.0, Anion Gap 3L, Glomerular Filtration Rate > 60.0, Calcium Level 7.9L 08/15/20 06:26: Bedside Glucose (Misc Panel) 125H 08/15/20 11:57: Bedside Glucose (Misc Panel) 137H CBC/BMP Laboratory Tests 08/15/20 05:21 Microbiology Microbiology 08/14/20 Blood Culture - Preliminary, Resulted No growth after 24 hours . All specim... 08/14/20 Blood Culture - Preliminary, Resulted No growth after 24 hours . All specim... 08/13/20 Blood Culture - Preliminary, Resulted No Growth after 48 hours. All Specime... 08/10/20 Blood Culture - Final, Complete NO GROWTH AFTER 5 DAYS 08/10/20 Blood Culture - Final, Complete Staphylococcus Hominis Ssp [place] Staphylococcus Epidermidis Allergies Coded Allergies: No Known Allergies (Unverified , 08/06/20) Home Medications Scheduled Amlodipine Besylate (Norvasc) 5 Mg Tablet, 1 TAB PO DAILY for 30 Days, #14 Scheduled PRN Ketorolac Tromethamine (Ketorolac Tromethamine) 10 Mg Tablet, 10 MG PO Q6H PRN for PAIN for 3 Days, #12 Marika KING INTERNAL COMBUSTION ENGINE INSPECTOR Aug 15, 2020 17:03
[2020-08-15] MEDS ORDERED: POTASSIUM CHLORIDE IV SCH ×5 (18:00)
[2020-08-15] MEDS ORDERED: POTASSIUM PHOSPHATE IV SCH ×5 (18:00)
[2020-08-15] MEDS ORDERED: [UNRECOGNIZED DRUG - OTHER] IV SCH ×5 (18:00)
[2020-08-15] MEDS ORDERED: FUROSEMIDE 40MG/4ML VIAL (J1940) IV ONE (19:20)
[2020-08-16 00:15] VITALS: BP 140/76
[2020-08-16] MEDS: HumaLOG INSULIN (NovoLOG) PER UNIT SC SCH ×4 (00:36→18:40)
[2020-08-16 04:11] VITALS: BP 145/83
[2020-08-16 05:38] LABS: HEMATOCRIT 39.5 % (42.0-52.0); MEAN CORPUSCULAR HEMOGLOBIN 30.7 pg (27.0-33.0); MEAN CORPUSCULAR HGB CONC 32.9 g/dl (32.0-36.5); MEAN CORPUSCULAR VOLUME 93.2 fl (80.0-96.0); PLATELET COUNT, AUTOMATED 254 10^3/uL (150-450); RED BLOOD COUNT 4.24 10^6/uL (4.30-6.10); WHITE BLOOD COUNT 11.8 10^3/uL (4.0-10.0)
[2020-08-16 06:10] LABS: BLOOD UREA NITROGEN 28 MG/DL (7-18); CALCIUM LEVEL 8.2 MG/DL (8.8-10.2); CARBON DIOXIDE LEVEL 28 MEQ/L (21-32); CHLORIDE LEVEL 109 MEQ/L (98-107); CREATININE FOR GFR 0.84 MG/DL (0.70-1.30); GLOMERULAR FILTRATION RATE > 60.0 (>35); GLUCOSE, FASTING 135 MG/DL (70-100); POTASSIUM SERUM 3.9 MEQ/L (3.5-5.1); SODIUM LEVEL 143 MEQ/L (136-145)
[2020-08-16] MEDS: MEROPENEM INJ 1 GM in IV 1 EA IV SCH ×3 (06:24→22:13)
[2020-08-16] MEDS: SODIUM CHLORIDE 0.9% INJ 10 ML SYR IV SCH ×2 (07:17→18:39)
[2020-08-16 08:00] VITALS: BP 168/81
[2020-08-16] MEDS: ASPIRIN 300 MG SUPP PR SCH (10:20)
[2020-08-16] MEDS: PANTOPRAZOLE 40MG VIAL (C9113 PER 1) IV SCH (10:20)
[2020-08-16] MEDS: HEPARIN SOD (PORCINE) 5000UNITS/ML 1ML VIAL/SYRINGE SQ SCH ×2 (10:20→22:13)
[2020-08-16 12:00] VITALS: BP 165/75
--- NOTE | 2020-08-16 13:45 | IPNPDOC ---
Text Note Date of Service The patient was seen on 08/16/20. NOTE Subjective: Patient more alert and awake in the morning, he is able to communi ratna and answer the questions. His oral intake limited to a few bites. No fever or chills overnight Objective: GENERAL APPEARANCE: ill looking male HEENT: no scleral icterus, no JVD, EOMI CARDIOVASCULAR: S1S2 LUNGS: Diminished lung sounds bilaterally, gurgling sounds over trachea ABDOMEN: soft & not tender w palpitation MUSCULOSKELETAL: no cyanosis, no swelling INTEGUMENT: no generalized pallor NEUROLOGICAL: Left hemiplegia, no nuchal rigidity Assessment and Plan Pt is an 80 year old male without medical history who presents with left sided weakness. Resolved in the ED. MRI later that evening demonstrated acute/subacute infarcts in the right SALLY regions Acute/subacute right SALLY CVA Left hemiplegia and dysphagia Fiberscopic swallowing test shows some improvement. Diet was modified to nectar thickening liquids No atrial fibrillation on telemetry or EKG Echo showed Normal global left ventricular systolic function with mild concentric left ventricular hypertrophy. There are some features of left ventricular diastolic dysfunction manifested by abnormal relaxation Continue aspirin rectally Continue TPN for now due to poor oral intake Aspiration pneumonia/dysphagia X-ray showed Left lower lobe infiltrate consistent with pneumonia Speech eval daily repeated blood culture negative Procalcitonin 0.09 on 08/15/20 Today leukocytosis of 11.8. I will proceed with chest CT, continue meropenem for now Patient has high risk for aspiration Hypernatremia Resolved Continue TPN without sodium Hypertension Labetalol IV every hour when necessary Hypokalemia Resolved Palliative care encounter Prognosis remains poor. Follow-up with palliative care DVT ppx Heparin 5000 BID VS,Fishbone, I+O VS, Fishbone, I+O Laboratory Tests 08/16/20 05:03 Vital Signs Date Time Temp Pulse Resp B/P (MAP) Pulse Ox O2 Delivery O2 Flow Rate FiO2 08/16/20 08:00 98.0 86 20 168/81 (110) 97 High Flow Cannula 5.0 I&O- Last 24 Hours up to 6 AM 08/16/20 06:00 Intake Total 1455 ml Output Total 2925 ml Balance -1470 ml VICKY ALEGRE DO Aug 16, 2020 13:45
[2020-08-16] MEDS ORDERED: ISOVUE-370 76% 100ML VIAL As Ordered ONE (13:52)
[2020-08-16 16:00] VITALS: BP 173/81
--- NOTE | 2020-08-16 16:16 | REP ---
INDICATION: pna. COMPARISON: Chest CT dated 08/06/2020 and portable chest x-rays dated 08/08/2020 and 08/10/2020. TECHNIQUE: Chest CT with IV contrast. FINDINGS: There are bilateral lower lobe infiltrates in the medial and posterior basilar segments of both right and left lower lobes and small bilateral pleural effusions as changes from the comparison CT. Additionally, there is dependent atelectasis posteriorly in the right upper lobe and left upper lobe paralleling the major fissures bilaterally. The lung [place] are otherwise clear. The thoracic aorta is unremarkable except for calcified atheroma. Cardiac size is normal. There is no pericardial effusion. The visualized upper abdominal contents are unremarkable. The adrenals are unremarkable. IMPRESSION: Bibasilar infiltrates and small bilateral pleural effusions as described. Dependent atelectasis posteriorly in the upper lobes bilaterally. <Electronically signed by Chaparro West > 08/16/20 [id number]
[2020-08-16] MEDS ORDERED: POTASSIUM PHOSPHATE IV SCH ×15 (18:00)
[2020-08-16] MEDS ORDERED: [UNRECOGNIZED DRUG - OTHER] IV SCH ×15 (18:00)
[2020-08-16] MEDS ORDERED: POTASSIUM CHLORIDE IV SCH ×15 (18:00)
[2020-08-16 20:00] VITALS: BP 169/88
[2020-08-17] VITALS (7 sets, daily range): BP systolic 136–204; BP diastolic 65–86
[2020-08-17] MEDS: LABETALOL 100MG/20ML VIAL IV PRN (01:44)
[2020-08-17] MEDS: MEROPENEM INJ 1 GM in IV 1 EA IV SCH (05:22)
[2020-08-17 06:02] LABS: HEMATOCRIT 39.5 % (42.0-52.0); HEMOGLOBIN 12.8 g/dl (13.5-17.5); MEAN CORPUSCULAR HEMOGLOBIN 30.5 pg (27.0-33.0); MEAN CORPUSCULAR HGB CONC 32.4 g/dl (32.0-36.5); PLATELET COUNT, AUTOMATED 305 10^3/uL (150-450); WHITE BLOOD COUNT 11.9 10^3/uL (4.0-10.0)
[2020-08-17] MEDS: SODIUM CHLORIDE 0.9% INJ 10 ML SYR IV SCH ×2 (06:16→18:00)
[2020-08-17 06:21] LABS: BLOOD UREA NITROGEN 27 MG/DL (7-18); CALCIUM LEVEL 8.4 MG/DL (8.8-10.2); CARBON DIOXIDE LEVEL 30 MEQ/L (21-32); CHLORIDE LEVEL 110 MEQ/L (98-107); CREATININE FOR GFR 0.83 MG/DL (0.70-1.30); GLOMERULAR FILTRATION RATE > 60.0 (>35); GLUCOSE, FASTING 131 MG/DL (70-100); POTASSIUM SERUM 4.1 MEQ/L (3.5-5.1); SODIUM LEVEL 143 MEQ/L (136-145)
[2020-08-17] MEDS: HumaLOG INSULIN (NovoLOG) PER UNIT SC SCH ×5 (06:46→23:59)
[2020-08-17] MEDS: HEPARIN SOD (PORCINE) 5000UNITS/ML 1ML VIAL/SYRINGE SQ SCH ×2 (08:59→20:35)
[2020-08-17] MEDS: OMEPRAZOLE 20 MG CAP PO SCH (08:59)
[2020-08-17] MEDS: ATORVASTATIN 20 MG TAB PO SCH (08:59)
[2020-08-17] MEDS: ASPIRIN 300 MG SUPP PR SCH (09:43)
[2020-08-17 10:28] LABS: MAGNESIUM LEVEL 2.4 MG/DL (1.8-2.4); PHOSPHORUS LEVEL 2.7 MG/DL (2.5-4.9)
--- NOTE | 2020-08-17 11:19 | IPNPDOC ---
Text Note Date of Service The patient was seen on 08/17/20. NOTE Subjective: No any acute events overnight. It seems patient has problem with m edications swallowing. No fever or chills overnight Objective: GENERAL APPEARANCE: ill looking male HEENT: no scleral icterus, no JVD, EOMI CARDIOVASCULAR: S1S2 LUNGS: Diminished lung sounds bilaterally, gurgling sounds over trachea ABDOMEN: soft & not tender w palpitation MUSCULOSKELETAL: no cyanosis, no swelling INTEGUMENT: no generalized pallor NEUROLOGICAL: Left hemiplegia, no nuchal rigidity Assessment and Plan Pt is an 80 year old male without medical history who presents with left sided weakness. Resolved in the ED. MRI later that evening demonstrated acute/subacute infarcts in the right SALLY regions Acute/subacute right SALLY CVA Left hemiplegia and dysphagia Fiberscopic swallowing test shows some improvement. Diet was modified to nectar thickening liquids No atrial fibrillation on telemetry or EKG Echo showed Normal global left ventricular systolic function with mild concentric left ventricular hypertrophy. There are some features of left ventricular diastolic dysfunction manifested by abnormal relaxation Continue aspirin rectally Continue TPN for now due to poor oral intake We tried to introduce oral medications today however patient had some episodes of aspiration. Await repeated speech evaluation Aspiration pneumonia/dysphagia X-ray showed Left lower lobe infiltrate consistent with pneumonia Speech eval daily Procalcitonin 0.09 on 08/15/20 Today patient has mild leukocytosis of 11.9. Patient completed the course of meropenem. Blood culture negative from 08/14/[address] chest showed Bibasilar infiltrates and small bilateral pleural effusions as described. Dependent atelectasis posteriorly in the upper lobes bilaterally. Patient has high risk for aspiration Hypernatremia Resolved Continue TPN without sodium Hypertension Labetalol IV every hour when necessary Hypokalemia Resolved Palliative care encounter Prognosis remains poor. Follow-up with palliative care DVT ppx Heparin 5000 BID VS,Fishbone, I+O VS, Fishbone, I+O Laboratory Tests 08/17/20 05:47 Vital Signs Date Time Temp Pulse Resp B/P (MAP) Pulse Ox O2 Delivery O2 Flow Rate FiO2 08/17/20 09:00 89 171/86 08/17/20 08:00 99.2 18 96 High Flow Cannula 5.0 I&O- Last 24 Hours up to 6 AM 08/17/20 06:00 Intake Total 1450 ml Output Total 550 ml Balance 900 ml DROZHZHIN,VICKY DO Aug 17, 2020 11:19
[2020-08-17] MEDS ORDERED: FUROSEMIDE 20MG/2ML VIAL (J1940) IV ONE (12:00)
--- NOTE | 2020-08-17 16:49 | IPN ---
PROGRESS NOTE DATE: 08/16/2020 Mr. Caballero is seen this morning on his bedside. He is talking today and answering questions. He is moving his right arm pretty good. His liquid breakfast tray is in front of him; however, he has hardly touched anything. Patient continues to have cough with some brothy secretions. His left-sided weakness has not improved as yet. PHYSICAL EXAMINATION: Temperature 98 degrees Fahrenheit, heart rate 86 per minute, pulse rate is 88, and respiratory rate is 20 per minute. Blood pressure 168/80 mmHg, and oxygen saturation 97% on 5 liters oxygen. Head is atraumatic. Neck supple, and jugular venous distention (JVD) does not seen to be abnormally elevated. Heart sounds are regular and lungs have respiratory secretions and noise. He has diminished breath sounds and basilar crepitations. Abdomen soft and nontender, and bowel sounds are normal. Extremities without any cyanosis or clubbing. Left-sided weakness is unchanged. Neurologically, he is more alert and able to talk today. Today's labs show WBC count 11.8, hemoglobin 13.0, hematocrit 39.5. Sodium 143, potassium 3.9, BUN 28, and creatinine 2.84. Glucose 135 and calcium 8.2. PROBLEMS: 1. Hyponatremia. Sodium level has corrected and remains stable. We will continue with total parenteral nutrition (TPN). No more further intravenous (IV) fluid needed. 2. Hypokalemia. Potassium level has also improved to 3.9, and we will continue with maintenance potassium in the TPN. 3. Congestive heart failure. His volume status improved significantly with intermittent diuresis. He has been in negative fluid balance, and oxygen requirement has also improved. 4. Pneumonia. Most likely he has aspiration pneumonia due to stroke and remains at risk for further aspiration. 5. Nutrition. Patient is not able to get adequate nutrition from his oral intake, which is minimal at present. He will remain on TPN, and his TPN orders are written.
[2020-08-17] MEDS ORDERED: POTASSIUM CHLORIDE IV SCH ×5 (18:00)
[2020-08-17] MEDS ORDERED: POTASSIUM PHOSPHATE IV SCH ×5 (18:00)
[2020-08-17] MEDS ORDERED: [UNRECOGNIZED DRUG - OTHER] IV SCH ×5 (18:00)
--- NOTE | 2020-08-17 20:22 | IPN ---
NEPHROLOGY PROGRESS NOTE DATE: 08/17/2020 SUBJECTIVE: The patient was seen and examined at the bedside today morning. He continues to be on IV TPN. I was told by the nursing staff that the patient is requiring frequent suctioning because of upper airway secretions. Although he passed his swallow evaluation, he is not able to eat much. His hypernatremia is controlled at this time. OBJECTIVE: VITAL SIGNS: Temperature is 99 degrees Fahrenheit, blood pressure 153/80, pulse is 81, respiratory rate of 18, saturating 93% on nasal cannula at 5 liters. INTAKE AND OUTPUT: Urine output recorded as 2.8 liters yesterday; 300 mL in the morning by the time I saw him. Weight in the bed scale is 78.4 kg. PHYSICAL EXAMINATION: GENERAL APPEARANCE: The patient is awake, minimally verbal, laying in bed. HEAD AND NECK: Pupils are equally round and reactive to light. Mucous membranes are moist. Neck is supple. Mildly elevated jugular venous distention was noted. CARDIOVASCULAR: S1, S2, regular rate. EXTREMITIES: No edema of the bilateral lower extremities. RESPIRATORY: The patient has a lot of upper airway secretions and gurgling sounds coming from the throat. Decreased breath sounds at the bases with inspiratory crepitations in the left base. ABDOMEN: Soft, positive bowel sounds, nontender, no organomegaly. MUSCULOSKELETAL: No clubbing, no cyanosis. Pulses are 2+. RN STAFF: The patient is able to follow commands and move extremities, and he answers a few questions. LAB REVIEW: CBC showed a WBC of 11.9, hemoglobin 12.8, platelet count 305. BMP showed sodium of 143, potassium 4.1, chloride 110, bicarbonate 30, BUN 27, creatinine is 0.8. Calcium 8.4, phosphorous 2.7, magnesium is 2.4. CURRENT INPATIENT MEDICATIONS: The patient's medications were all reviewed by myself. IV Meropenem has been stopped. No other significant change in the medications today as compared with yesterday. ASSESSMENT AND PLAN: 1. Protein calorie malnutrition and poor oral intake - The patient is still dependent on TPN. New special formulation TPN order was placed today. The patient is unable to eat a regular diet because of CVA. 2. Aspiration pneumonia - The patient was on IV antibiotics which have been stopped now. The rest of the management is as per the Medical Team. 3. Hypertension - blood pressure is controlled with current dose of Amlodipine, Lisinopril, Metoprolol p.r.n. Continue current regimen. 4. Acute CVA - The patient still has difficulty with swallowing, and he is requiring frequent suctioning. Neurology already saw the patient. He is getting rectal Aspirin and daily Lipitor as well. Blood pressure is controlled as mentioned above. 5. Congestive heart failure - The patient is getting as-needed doses of Lasix. I gave him a dose of Lasix 20 mg IV today morning.
[2020-08-18] VITALS: BP 141/60
[2020-08-18 04:00] VITALS: BP 146/67
[2020-08-18] MEDS: HumaLOG INSULIN (NovoLOG) PER UNIT SC SCH ×3 (05:54→17:41)
[2020-08-18] MEDS: SODIUM CHLORIDE 0.9% INJ 10 ML SYR IV SCH ×2 (05:55→17:40)
[2020-08-18 06:18] LABS: BASO % 0.4 % (0.0-1.0); EOS # 0.5 10^3/uL (0.0-0.5); EOS % 4.4 % (0.0-3.0); HEMATOCRIT 40.1 % (42.0-52.0); HEMOGLOBIN 13.1 g/dl (13.5-17.5); LYMPH # 0.8 10^3/uL (1.5-5.0); LYMPH % 7.1 % (24.0-44.0); MEAN CORPUSCULAR HEMOGLOBIN 30.9 pg (27.0-33.0); MEAN CORPUSCULAR HGB CONC 32.7 g/dl (32.0-36.5); MEAN CORPUSCULAR VOLUME 94.6 fl (80.0-96.0); MONO # 0.7 10^3/uL (0.0-0.8); MONO % 6.4 % (2.0-8.0); NEUTROPHILS # 9.2 10^3/uL (1.5-8.5); NEUTROPHILS % 80.9 % (36.0-66.0); PLATELET COUNT, AUTOMATED 316 10^3/uL (150-450); RED BLOOD COUNT 4.24 10^6/uL (4.30-6.10); WHITE BLOOD COUNT 11.4 10^3/uL (4.0-10.0)
[2020-08-18 06:36] LABS: ALBUMIN 2.1 GM/DL (3.2-5.2); ALT/SGPT 55 U/L (12-78); BILIRUBIN,TOTAL 0.3 MG/DL (0.2-1.0); BLOOD UREA NITROGEN 28 MG/DL (7-18); CALCIUM LEVEL 8.1 MG/DL (8.8-10.2); CARBON DIOXIDE LEVEL 31 MEQ/L (21-32); CHLORIDE LEVEL 108 MEQ/L (98-107); CREATININE FOR GFR 0.81 MG/DL (0.70-1.30); GLOMERULAR FILTRATION RATE > 60.0 (>35); GLUCOSE, FASTING 127 MG/DL (70-100); MAGNESIUM LEVEL 2.3 MG/DL (1.8-2.4); SODIUM LEVEL 143 MEQ/L (136-145); TOTAL PROTEIN 5.1 GM/DL (6.4-8.2)
[2020-08-18 08:03] LABS: NT-PRO BNP 77 PG/ML (<450)
[2020-08-18 08:20] VITALS: BP 153/68
[2020-08-18] MEDS: ASPIRIN 300 MG SUPP PR SCH (08:59)
[2020-08-18] MEDS: FUROSEMIDE 20MG/2ML VIAL (J1940) IV SCH (08:59)
[2020-08-18] MEDS: HEPARIN SOD (PORCINE) 5000UNITS/ML 1ML VIAL/SYRINGE SQ SCH ×2 (09:00→19:40)
[2020-08-18] MEDS: OMEPRAZOLE 20 MG CAP PO SCH (09:44)
[2020-08-18] MEDS: ATORVASTATIN 20 MG TAB PO SCH (09:44)
--- NOTE | 2020-08-18 11:04 | IPNPDOC ---
Text Note Date of Service The patient was seen on 08/18/20. NOTE Subjective: No any acute events overnight. Patient continues to have episode of aspiration with swallowing. Patient more alert and oriented in the morning Objective: GENERAL APPEARANCE: ill looking male HEENT: no scleral icterus, no JVD, EOMI CARDIOVASCULAR: S1S2 LUNGS: Diminished lung sounds bilaterally, gurgling sounds over trachea ABDOMEN: soft & not tender w palpitation MUSCULOSKELETAL: no cyanosis, no swelling INTEGUMENT: no generalized pallor NEUROLOGICAL: Left hemiplegia, no nuchal rigidity Assessment and Plan Pt is an 80 year old male without medical history who presents with left sided weakness. Resolved in the ED. MRI later that evening demonstrated acute/subacute infarcts in the right SALLY regions Acute/subacute right SALLY CVA Left hemiplegia and dysphagia Fiberscopic swallowing test shows some improvement. Diet was modified to nectar thickening liquids No atrial fibrillation on telemetry or EKG Echo showed Normal global left ventricular systolic function with mild concentric left ventricular hypertrophy. There are some features of left ventricular diastolic dysfunction manifested by abnormal relaxation Continue aspirin rectally Continue TPN for now due to poor oral intake We tried to introduce oral medications today however patient had some episodes of aspiration. Await repeated speech evaluation Aspiration pneumonia/dysphagia X-ray showed Left lower lobe infiltrate consistent with pneumonia Speech eval daily Procalcitonin 0.09 on 08/15/20 Today patient has mild leukocytosis of 11.9. Patient completed the course of meropenem. Blood culture negative from 08/14/[address] chest showed Bibasilar infiltrates and small bilateral pleural effusions as described. Dependent atelectasis posteriorly in the upper lobes bilaterally. Patient has high risk for aspiration Hypernatremia Resolved Continue TPN without sodium Hypertension Labetalol IV every hour when necessary Hypokalemia Resolved Palliative care encounter Prognosis remains poor. Follow-up with palliative care Oropharyngeal dysfunction Pt presents with mild-moderate oropharyngeal phase dysphagia . Diet was modified to Puree solids and nectar thick liquids (no straws). Recommend: Meds crushed Recommend: Assist with feeding DVT ppx Heparin 5000 BID VS,Fishbone, I+O VS, Fishbone, I+O Laboratory Tests 08/18/20 05:54 Vital Signs Date Time Temp Pulse Resp B/P (MAP) Pulse Ox O2 Delivery O2 Flow Rate FiO2 08/18/20 09:45 79 153/68 08/18/20 08:20 97.1 18 94 High Flow Cannula 5.0 I&O- Last 24 Hours up to 6 AM 08/18/20 06:00 Intake Total 200 ml Output Total 1875 ml Balance -1675 ml VICKY ALEGRE DO Aug 18, 2020 11:04
[2020-08-18 11:36] VITALS: BP 152/70
[2020-08-18 15:49] VITALS: BP 137/71
[2020-08-18] MEDS ORDERED: POTASSIUM PHOSPHATE IV SCH ×4 (18:00)
[2020-08-18] MEDS ORDERED: MAGNESIUM SULFATE IV SCH ×4 (18:00)
[2020-08-18] MEDS ORDERED: [UNRECOGNIZED DRUG - OTHER] IV SCH ×4 (18:00)
[2020-08-18] MEDS: SCOPOLAMINE 1MG TRANSDERMAL PATCH TOP SCH (19:41)
[2020-08-18 20:00] VITALS: BP 120/58
--- NOTE | 2020-08-18 21:29 | IPN ---
NEPHROLOGY PROGRESS NOTE DATE: 08/18/2020 SUBJECTIVE: Patient was seen and examined at the bedside today morning. Patient continues to be on I.V. TPN. He is awake. He is able to answer a few questions. He is still having difficulty with eating and difficulty clearing secretions from his throat. Renal function is stable. OBJECTIVE: VITAL SIGNS: Temperature 97.5 degrees Fahrenheit, blood pressure 137/71, pulse 87, respiratory rate 18, saturating 93% on nasal cannula at 4 liters. INTAKE AND OUTPUT: Urine output recorded as 1,600 mL yesterday and 1,175 mL so far today. Weight in the bed scale is 72.7 kg. PHYSICAL EXAMINATION: GENERAL: Patient is awake, alert and oriented x2, lying in bed. HEAD/NECK: Extraocular muscles intact. Pupils equally round and reactive to light. Mucous membranes are moist. Neck is supple. Mildly elevated JVD. RESPIRATORY: Chest is clear to auscultation bilaterally. Bilateral equal air entry. No rales or rhonchi. CARDIOVASCULAR: S1, S2, regular rate. No edema of the bilateral lower extremities. ABDOMEN: Soft, positive bowel sounds, nontender. No organomegaly. MUSCULOSKELETAL: No clubbing or cyanosis. Pulses are 2+. VETERINARY RECEPTIONIST: Patient has difficulty with swallowing, otherwise he is able to follow commands. He moves extremities and power is 5/5 in all extremities. LABORATORY REVIEW: CBC showed WBC 11.4, hemoglobin 13.1, platelets 316,000. BMP showed sodium 143, potassium 4, chloride 108, bicarb 31, BUN 28, creatinine 0.8. Calcium 8.1. Magnesium 2.3. AST 32, ALT 55. Albumin 2.1. CURRENT INPATIENT MEDICATIONS: Patient's medications were all reviewed by myself. I ordered another dose of special formulation TPN. No other significant change in the medications. ASSESSMENT AND PLAN: 1. Dysphagia and protein calorie malnutrition: Patient is still dependent on TPN. Special order TPN was ordered again by myself today. 2. Aspiration pneumonitis: Patient is status post I.V. antibiotics. He is still requiring frequent suctioning of the upper airways. White cell count is still slightly elevated. The rest of the management is as per medical team. 3. Hypertension: Blood pressure is controlled with Metoprolol, Lisinopril and Amlodipine. 4. Acute CVA: Patient is getting physical therapy. Continue frequent suctioning of the upper airways and aspiration precautions. He is getting Lipitor and rectal aspirin.
[2020-08-19] VITALS: BP 127/58
[2020-08-19] MEDS: HumaLOG INSULIN (NovoLOG) PER UNIT SC SCH ×4 (00:22→16:49)
[2020-08-19 04:00] VITALS: BP 131/61
[2020-08-19 05:34] LABS: BASO % 0.2 % (0.0-1.0); EOS # 0.3 10^3/uL (0.0-0.5); EOS % 1.8 % (0.0-3.0); HEMATOCRIT 39.2 % (42.0-52.0); HEMOGLOBIN 12.8 g/dl (13.5-17.5); LYMPH # 0.8 10^3/uL (1.5-5.0); LYMPH % 5.2 % (24.0-44.0); MEAN CORPUSCULAR HEMOGLOBIN 30.3 pg (27.0-33.0); MEAN CORPUSCULAR HGB CONC 32.7 g/dl (32.0-36.5); MEAN CORPUSCULAR VOLUME 92.9 fl (80.0-96.0); NEUTROPHILS # 13.7 10^3/uL (1.5-8.5); PLATELET COUNT, AUTOMATED 384 10^3/uL (150-450); RED BLOOD COUNT 4.22 10^6/uL (4.30-6.10); WHITE BLOOD COUNT 15.9 10^3/uL (4.0-10.0)
[2020-08-19] MEDS: SODIUM CHLORIDE 0.9% INJ 10 ML SYR IV SCH ×2 (05:56→16:50)
[2020-08-19 06:00] LABS: ALBUMIN 2.2 GM/DL (3.2-5.2); BILIRUBIN,TOTAL 0.4 MG/DL (0.2-1.0); CALCIUM LEVEL 8.5 MG/DL (8.8-10.2); CREATININE FOR GFR 1.24 MG/DL (0.70-1.30); GLOMERULAR FILTRATION RATE 59.6 (>35); MAGNESIUM LEVEL 2.7 MG/DL (1.8-2.4); POTASSIUM SERUM 3.8 MEQ/L (3.5-5.1); TOTAL PROTEIN 5.9 GM/DL (6.4-8.2)
[2020-08-19 08:00] VITALS: BP 136/59
--- NOTE | 2020-08-19 08:49 | REP ---
INDICATION: pneumonia. COMPARISON: 08/14/2020 as well as other prior exams. TECHNIQUE: PORTABLE AP VIEW OF THE CHEST WAS PERFORMED. FINDINGS: Previously noted patchy parenchymal opacities in each lung base have improved with minimal residual. The heart is not enlarged. There is calcification of the thoracic aorta. The mediastinal silhouette is unchanged. Right arm PICC line is seen with the tip in the superior vena cava. IMPRESSION: Improved bibasilar atelectasis/infiltrate with minimal residual. <Electronically signed by Chaparro Rice > 08/19/20 0827
[2020-08-19] MEDS: ATORVASTATIN 20 MG TAB PO SCH (09:00)
[2020-08-19] MEDS: OMEPRAZOLE 20 MG CAP PO SCH (09:00)
[2020-08-19] MEDS: FUROSEMIDE 20MG/2ML VIAL (J1940) IV SCH (09:59)
[2020-08-19] MEDS: PIPERACILLIN/TAZOBACTAM SOD 3.375 GM in D5W MINI-BAG PLUS 50 ML IV SCH ×3 (10:00→19:22)
[2020-08-19] MEDS: ASPIRIN 300 MG SUPP PR SCH (10:00)
[2020-08-19] MEDS: HEPARIN SOD (PORCINE) 5000UNITS/ML 1ML VIAL/SYRINGE SQ SCH ×2 (10:00→20:56)
[2020-08-19 10:32] LABS: PHOSPHORUS LEVEL 4.1 MG/DL (2.5-4.9)
--- NOTE | 2020-08-19 11:04 | IPNPDOC ---
Text Note Date of Service The patient was seen on 08/19/20. NOTE Subjective: Patient had some episodes of aspiration with thick liquid. No any acute events overnight, no fever or chills Objective: GENERAL APPEARANCE: ill looking male HEENT: no scleral icterus, no JVD, EOMI CARDIOVASCULAR: S1S2 LUNGS: Diminished lung sounds bilaterally, gurgling sounds over trachea ABDOMEN: soft & not tender w palpitation MUSCULOSKELETAL: no cyanosis, no swelling INTEGUMENT: no generalized pallor NEUROLOGICAL: Left hemiplegia, no nuchal rigidity Assessment and Plan Pt is an 80 year old male without medical history who presents with left sided weakness. Resolved in the ED. 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 Diet was modified to nectar thickening liquids No atrial fibrillation on telemetry or EKG Echo showed Normal global left ventricular systolic function with mild concentric left ventricular hypertrophy. There are some features of left ventricular diastolic dysfunction manifested by abnormal relaxation Continue aspirin rectally Continue TPN for now due to poor oral intake Nothing by mouth for now. Await repeated speech evaluation Aspiration pneumonia/dysphagia X-ray showed Left lower lobe infiltrate consistent with pneumonia Speech eval daily Procalcitonin 0.09 on 08/15/20 Today patient has mild leukocytosis of 11.9. Patient completed the course of meropenem. Blood culture negative from 08/14/[address] chest showed Bibasilar infiltrates and small bilateral pleural effusions as described. Dependent atelectasis posteriorly in the upper lobes bilaterally. Patient has a high risk for aspiration Patient has increased leukocytosis today, could be secondary to reactive pneumonitis due to aspiration. X-ray was done and showed improved bibasilar atelectasis/infiltrate with minimal residual. I started Zosyn empirically Blood culture ordered, await procalcitonin Acute Diastolic CHF BNP elevated on 08/14/20 to 1459 Patient received treatment with Lasix IV Hypernatremia Resolved Continue TPN without sodium Hypertension Labetalol IV every hour when necessary Hypokalemia Resolved Palliative care encounter Prognosis remains poor. Follow-up with palliative care Oropharyngeal dysfunction Pt presents with mild-moderate oropharyngeal phase dysphagia . Diet was modified to Puree solids and nectar thick liquids (no straws). Recommend: Meds crushed Recommend: Assist with feeding Nothing by mouth for now. Await speech evaluation DVT ppx Heparin 5000 BID VS,Fishbone, I+O VS, Fishbone, I+O Laboratory Tests 08/19/20 05:08 Vital Signs Date Time Temp Pulse Resp B/P (MAP) Pulse Ox O2 Delivery O2 Flow Rate FiO2 08/19/20 08:00 99.1 79 20 136/59 (84) 97 High Flow Cannula 4.0 I&O- Last 24 Hours up to 6 AM 08/19/20 06:00 Intake Total 750 ml Output Total 1475 ml Balance -725 ml VICKY ALEGRE DO Aug 19, 2020 11:04
[2020-08-19] MEDS ORDERED: FUROSEMIDE 20MG/2ML VIAL (J1940) IV ONE (11:15)
[2020-08-19] MEDS: NS 1,000 ML IV SCH (11:47)
[2020-08-19 12:00] VITALS: BP 130/58
--- NOTE | 2020-08-19 13:42 | IPNPDOC ---
Subjective General Date/Time Seen The patient was seen on 08/19/20 at 13:29. Subject Chief Complaint/History The patient is a 80-year-old male admitted with a reason for visit of TIA. SUBJECTIVE: Mr. Caballero was seen and examined at the bedside this morning. No acute events were reported from overnight. He continues to be nonverbal, grunting answers to a few questions but unable to speak clearly. He continues to have difficulty eating and with clearing secretions, for he continues on TPN. OBJECTIVE: PHYSICAL EXAMINATION: VITAL SIGNS: see below GENERAL: Awake, does not appear in any acute distress, appears stated age HEENT: PERRL, EOMI, Oral mucous membranes are moist without lesions. NECK: Mildly elevated JVD is noted. No adenopathy is appreciated. No thyromegaly CHEST/LUNGS: Lungs are clear bilaterally without rhonchi, rales, or wheezes. There is no subcutaneous air appreciated. There is no tenderness to the chest wall. HEART:Regular rate and rhythm. No murmurs, rubs, or gallops are appreciated. Distal pulses are 2+. No carotid bruits appreciated. ABDOMEN: Soft, nontender, and nondistended. Bowel sounds are positive. No organomegaly is appreciated. No masses are appreciated. There are no peritoneal signs. There is no [place] sign. EXTREMITIES: There is trace peripheral edema. There is no focal long bone tenderness or deformity. SKIN: The patients skin is warm and dry, without rashes or lesions. PSYCHIATRIC: Unable to assess due to patient's cognitive status NEUROLOGIC: The patient has speech deficits, left upper extremity is contracted, unable to assess full neurologic exam IMAGING: CXR 08/19/20: FINDINGS: Previously noted patchy parenchymal opacities in each lung base have improved with minimal residual. The heart is not enlarged. There is calcification of the thoracic aorta. The mediastinal silhouette is unchanged. Right arm PICC line is seen with the tip in the superior vena cava. IMPRESSION: Improved bibasilar atelectasis/infiltrate with minimal residual. ASSESSMENT: This is an 80-year-old male with history of hypertension who presented with left-sided weakness found to have acute CVA now complicated by dysphasia and resulting severe protein calorie malnutrition requiring IV TPN. PLAN: 1. Severe protein calorie malnutrition secondary to dysphagia: -Continue IV TPN. We have placed the modified order in the patient's chart -Magnesium somewhat elevated at 2.7 today, phosphorus improved to 4.1 -Continue scopolamine for secretion management 2. History of congestive heart failure: -Continue daily Lasix IV 20 mg -Renal function somewhat worse today up to 1.24 from 0.81. Will continue to monitor. 3. History of aspiration pneumonitis: -WBC up to 15.9 from 11.4 yesterday. Per EMR, the patient did have one episode of aspiration yesterday -Continue IV Zosyn -Continue suctioning and oral care as prescribed by speech therapy 4. Hypertension: BP well-controlled at this time -Continue PRN labetalol, Lopressor with hold parameters as written -Currently holding all oral antihypertensives due to aspiration precautions 5. History of recent CVA: -Continue physical therapy, dysphasia treatment -Continue Lipitor and aspirin Disposition: Continue IV TPN therapy for now. Current Medications Current Medications Current Medications Medications (Trade) Dose Ordered Sig/Lloyd Route PRN Reason Start Time Stop Time Status Last Admin Dose Admin Acetaminophen (Tylenol Suppository) 650 mg Q4HP PRN CA PAIN / FEVER 08/10/20 16:15 08/15/20 09:29 Amlodipine Besylate (Norvasc) 2.5 mg DAILY PO 08/09/20 09:00 08/10/20 07:23 DC 08/09/20 10:16 Amlodipine Besylate (Norvasc) 5 mg DAILY PO 08/07/20 09:00 08/07/20 18:40 DC 08/07/20 09:35 Amlodipine Besylate (Norvasc) 5 mg DAILY PO 08/10/20 09:00 08/10/20 16:11 DC 08/10/20 09:03 Amlodipine Besylate (Norvasc) 10 mg DAILY PO 08/17/20 09:00 Hold 08/18/20 09:45 Aspirin (Aspirin) 300 mg DAILY CA 08/11/20 09:00 08/19/20 10:00 Aspirin (Ecotrin) 81 mg DAILY PO 08/07/20 09:00 08/10/20 16:11 DC 08/10/20 09:03 Atorvastatin Calcium (Lipitor) 40 mg DAILY PO 08/17/20 09:00 Hold 08/18/20 09:44 Clopidogrel Bisulfate (PLAVix) 75 mg DAILY PO 08/07/20 09:00 08/10/20 16:11 DC 08/10/20 09:02 Dextrose/Sodium Chloride 1,000 ml @ 150 mls/hr Q6H40M IV 08/10/20 13:45 08/13/20 10:40 DC 08/13/20 09:39 Dextrose/Water 500 ml @ 50 mls/hr Q10H IV 08/14/20 11:35 08/15/20 15:09 DC 08/14/20 12:18 Docusate Sodium (Colace) 100 mg BID PO 08/08/20 09:00 08/10/20 13:55 DC 08/09/20 10:16 Furosemide (LASIX injection) 20 mg DAILY IV 08/18/20 09:00 08/19/20 09:59 Heparin Sodium (Heparin (Flush)) 200 units ASDIRECTED PRN IV SEE LABEL COMMENTS 08/12/20 18:35 Heparin Sodium (Heparin (Flush)) 200 units PICC IV 08/13/20 06:00 08/19/20 05:55 Heparin Sodium (Porcine) (Heparin) 5,000 units BID SQ 08/13/20 21:00 08/19/20 10:00 Home Med (Med Rec Complete!) ASDIRECTED XX 08/06/20 17:50 08/06/20 17:49 DC Hydralazine HCl (Apresoline) 10 mg Q1HP PRN IV SBP > 170 08/13/20 07:50 08/13/20 10:23 DC Hydralazine HCl (Apresoline) 10 mg Q4HP PRN IV SBP > 170 08/10/20 18:15 08/13/20 07:48 DC 08/12/20 18:38 Hydralazine HCl (Apresoline) 10 mg Q6HP PRN IV SBP > 170 08/08/20 19:10 08/10/20 16:11 DC 08/10/20 14:53 Insulin Human Lispro (HumaLOG INSULIN) See Protocol Table Q6H SC 08/13/20 18:00 08/14/20 12:01 DC 08/14/20 12:22 Insulin Human Lispro (HumaLOG INSULIN) See Protocol Table Q6H SC 08/14/20 18:00 08/15/20 12:01 DC 08/15/20 12:22 Insulin Human Lispro (HumaLOG INSULIN) See Protocol Table Q6H [place] 08/15/20 18:00 08/16/20 12:01 WI 08/16/20 12:21 Insulin Human Lispro (HumaLOG INSULIN) See Protocol Table Q6H [place] 08/16/20 18:00 08/17/20 12:01 WI 08/17/20 06:46 Insulin Human Lispro (HumaLOG INSULIN) See Protocol Table Q6H [place] 08/17/20 18:00 08/18/20 12:01 DC 08/18/20 11:50 Insulin Human Lispro (HumaLOG INSULIN) See Protocol Table Q6H [place] 08/18/20 18:00 08/19/20 12:01 DC 08/19/20 05:55 Insulin Human Lispro (HumaLOG INSULIN) See Protocol Table Q6H [place] 08/19/20 18:00 08/20/20 12:01 Labetalol HCl (Normodyne, Trandate) 10 mg Q1H PRN IV SBP>170 08/13/20 10:20 08/17/20 01:44 Labetalol HCl (Normodyne, Trandate) 20 mg STAT STAT IV 08/11/20 07:53 08/11/20 07:54 DC 08/11/20 08:17 Lactated Ringer's 1,000 ml @ 150 mls/hr Q6H40M IV 08/09/20 07:20 08/10/20 13:55 DC 08/10/20 13:51 Lisinopril (Prinivil) 20 mg DAILY PO 08/17/20 09:00 Hold 08/18/20 09:44 Meropenem 1 gm/IV Miscellaneous Supplies 50 ml @ 100 mls/hr Q8H IV 08/10/20 14:00 08/17/20 11:06 DC 08/17/20 05:22 Metoprolol Tartrate (Lopressor) 2.5 mg STAT STAT IV 08/12/20 22:07 08/12/20 22:08 DC 08/12/20 22:27 Metoprolol Tartrate (Lopressor) 5 mg Q1HP PRN IV HR>110 08/13/20 10:20 Omeprazole (PriLOSEC) 40 mg DAILY PO 08/17/20 09:00 Hold 08/18/20 09:44 Ondansetron HCl (ZOFRAN INJection) 4 mg Q6HP PRN IV NAUSEA OR VOMITING 08/07/20 18:25 08/08/20 13:32 Oxymetazoline HCl (Afrin) 2 spray ASDIRECTED PRN NA SEE LABEL COMMENTS 08/15/20 09:00 Pantoprazole Sodium (Protonix) 40 mg DAILY IV 08/10/20 13:45 08/17/20 07:51 DC 08/16/20 10:20 Piperacillin Sod/ Tazobactam Sod 3.375 gm/Dextrose 50 ml @ 50 mls/hr Q6H IV 08/19/20 08:00 08/19/20 10:00 Potassium Chloride 10 meq/ IV Miscellaneous Supplies 100 ml @ 100 mls/hr Q1H IV 08/13/20 10:00 08/13/20 11:59 DC 08/13/20 12:22 Potassium Chloride 20 meq/ Potassium Phosphate 30 mmol/ Magnesium Sulfate 5.6 meq/Calcium Gluconate 1389 mg/ Multivitamins 10 ml/Chromium/ Copper/Manganese/ Seleni/Zn 1 ml/ Amino Acids/ Dextrose 2,046.29 ml @ 60 mls/hr ONCE@1800 IV 08/19/20 18:00 08/20/20 17:59 Potassium Chloride 20 meq/ Potassium Phosphate 30 mmol/ Magnesium Sulfate 11.1 meq/Calcium Gluconate 1389 mg/ Amino Acids/ Dextrose 2,036.665 ml @ 60 mls/hr ONCE@1800 IV 08/17/20 18:00 08/18/20 17:59 DC 08/17/20 17:57 Potassium Chloride 40 meq/ Potassium Phosphate 20 mmol/ Magnesium Sulfate 9.52 meq/Calcium Gluconate 1190 mg/ Amino Acids/ Dextrose 2,040.9467 ml @ 70 mls/hr ONCE@1800 IV 08/15/20 18:00 08/16/20 17:59 DC 08/15/20 18:11 Potassium Chloride 40 meq/ Potassium Phosphate 20 mmol/ Magnesium Sulfate 9.52 meq/Calcium Gluconate 1190 mg/ Multivitamins 10 ml/Chromium/ Copper/Manganese/ Seleni/Zn 1 ml/ Amino Acids/ Dextrose 2,051.9467 ml @ 70 mls/hr ONCE@1800 IV 08/16/20 18:00 08/17/20 17:59 DC 08/16/20 18:40 Potassium Chloride 40 meq/ Potassium Phosphate 20 mmol/ Magnesium Sulfate 9.52 meq/Calcium Gluconate 1190 mg/ Multivitamins 10 ml/Chromium/ Copper/Manganese/ Seleni/Zn 1 ml/ Insulin Human Regular 10 units/ Amino Acids/ Dextrose 2,052.0467 ml @ 70 mls/hr ONCE@1800 IV 08/16/20 18:00 08/17/20 17:59 UNV Potassium Chloride 40 meq/ Potassium Phosphate 20 mmol/ Magnesium Sulfate 11.1 meq/Calcium Gluconate 1389 mg/ Multivitamins 10 ml/Chromium/ Copper/Manganese/ Seleni/Zn 1 ml/ Amino Acids/ Dextrose 2,054.3317 ml @ 70 mls/hr ONCE@1800 IV 08/14/20 18:00 08/15/20 17:59 DC 08/14/20 18:16 Potassium Chloride 80 meq/ Potassium Phosphate 40 mmol/ Magnesium Sulfate 11.1 meq/Calcium Gluconate 1389 mg/ Amino Acids/ Dextrose 2,069.9983 ml @ 60 mls/hr ONCE@1800 IV 08/13/20 18:00 08/14/20 17:59 DC 08/13/20 18:13 Potassium Phosphate 30 mmol/ Magnesium Sulfate 11.1 meq/Calcium Gluconate 1389 mg/ Amino Acids/ Dextrose 2,026.665 ml @ 60 mls/hr ONCE@1800 IV 08/18/20 18:00 08/19/20 17:59 08/18/20 17:41 Pravastatin Sodium (Pravachol) 40 mg QHS PO 08/06/20 21:00 08/10/20 16:11 DC 08/09/20 22:09 Scopolamine (Scopolamine) 1 mg Q72H TOP 08/18/20 20:00 08/18/20 19:41 Sodium Chloride 1,000 ml @ 60 mls/hr [id number] IV 08/07/20 16:40 08/09/20 07:20 DC 08/08/20 19:45 Sodium Chloride 1,000 ml @ 80 mls/hr [id number] IV 08/19/20 11:05 08/19/20 11:47 Sodium Chloride (Saline Lock Flush) 10 ml ASDIRECTED PRN IV SEE LABEL COMMENTS 08/12/20 18:35 Sodium Chloride (Saline Lock Flush) 10 ml PICC IV 08/13/20 06:00 08/19/20 05:56 Tamsulosin HCl (Flomax) 0.4 mg QHS PO 08/06/20 21:00 08/10/20 16:11 DC 08/09/20 22:09 Vancomycin HCl 750 mg/IV Miscellaneous Supplies 1 each/ Sodium Chloride 275 ml @ 275 mls/hr Q12H IV 08/15/20 04:00 08/15/20 12:20 DC 08/15/20 04:48 Vancomycin HCl 1000 mg/IV Miscellaneous Supplies 1 each/ Sodium Chloride 270 ml @ 270 mls/hr Q12H IV 08/14/20 10:30 08/14/20 11:24 DC Allergies Coded Allergies: No Known Allergies (Unverified , 08/06/20) VS,Fishbone, I+O VS, Fishbone, I+O Laboratory Tests 08/19/20 05:08 Vital Signs Date Time Temp Pulse Resp B/P (MAP) Pulse Ox O2 Delivery O2 Flow Rate FiO2 08/19/20 12:00 5.0 08/19/20 08:00 99.1 79 20 136/59 (84) 97 High Flow Cannula I&O- Last 24 Hours up to 6 AM 08/19/20 06:00 Intake Total 750 ml Output Total 1475 ml Balance -725 ml GME ATTESTATION GME ATTESTATION My faculty preceptor for this patient encounter was physically present during the encounter and was fully available. All aspects of the patient interview, examination, medical decision making process, and medical care plan development were reviewed and approved by the faculty preceptor. The faculty preceptor is aware and concurs with the plan as stated in the body of this note and will attest to such by his/her cosignature. Attending Note Attending Note Pt was seen today AM. Able to communicate but still difficulty clearing upper airway secretions and dysphagia. TPN still running. Cr 0.9-->1.2 today A/P TOM on CKD HTN CVA with dysphagia CHF Hypermagnesemia OK to cont daily lasix for now. Monitor renal function. Cont sodium free TPN. Another order was written today. Low Mg TPN today. PERLA VALLEJO MD Aug 19, 2020 13:42 RUTH NARAYAN MD Aug 19, 2020 20:31
[2020-08-19] MEDS ORDERED: POTASSIUM CHLORIDE IV SCH ×7 (18:00)
[2020-08-19] MEDS ORDERED: [UNRECOGNIZED DRUG - OTHER] IV SCH ×7 (18:00)
[2020-08-19] MEDS ORDERED: POTASSIUM PHOSPHATE IV SCH ×7 (18:00)
[2020-08-19 20:00] VITALS: BP 139/65
[2020-08-20] VITALS (15 sets, daily range): BP systolic 138–150; BP diastolic 63–76; O2SAT 91–98
[2020-08-20] MEDS: NS 1,000 ML IV SCH (00:17)
[2020-08-20] MEDS: PIPERACILLIN/TAZOBACTAM SOD 3.375 GM in D5W MINI-BAG PLUS 50 ML IV SCH ×4 (02:37→20:58)
[2020-08-20] MEDS: HumaLOG INSULIN (NovoLOG) PER UNIT SC SCH ×3 (05:04→12:29)
[2020-08-20] MEDS: SODIUM CHLORIDE 0.9% INJ 10 ML SYR IV SCH ×2 (05:05→16:46)
[2020-08-20 06:03] LABS: BASO # 0.1 10^3/uL (0.0-0.2); BASO % 0.4 % (0.0-1.0); EOS # 0.3 10^3/uL (0.0-0.5); EOS % 2.8 % (0.0-3.0); HEMATOCRIT 38.9 % (42.0-52.0); HEMOGLOBIN 12.2 g/dl (13.5-17.5); LYMPH # 0.9 10^3/uL (1.5-5.0); LYMPH % 7.7 % (24.0-44.0); MEAN CORPUSCULAR HEMOGLOBIN 30.6 pg (27.0-33.0); MEAN CORPUSCULAR HGB CONC 31.4 g/dl (32.0-36.5); MEAN CORPUSCULAR VOLUME 97.5 fl (80.0-96.0); MONO # 0.9 10^3/uL (0.0-0.8); MONO % 7.6 % (2.0-8.0); NEUTROPHILS # 9.4 10^3/uL (1.5-8.5); NEUTROPHILS % 80.8 % (36.0-66.0); PLATELET COUNT, AUTOMATED 363 10^3/uL (150-450); RED BLOOD COUNT 3.99 10^6/uL (4.30-6.10); WHITE BLOOD COUNT 11.6 10^3/uL (4.0-10.0)
[2020-08-20 06:23] LABS: ALBUMIN 2.2 GM/DL (3.2-5.2); ALT/SGPT 67 U/L (12-78); BILIRUBIN,TOTAL 0.5 MG/DL (0.2-1.0); BLOOD UREA NITROGEN 42 MG/DL (7-18); CARBON DIOXIDE LEVEL 26 MEQ/L (21-32); CHLORIDE LEVEL 115 MEQ/L (98-107); CREATININE FOR GFR 1.01 MG/DL (0.70-1.30); GLOMERULAR FILTRATION RATE > 60.0 (>35); GLUCOSE, FASTING 122 MG/DL (70-100); MAGNESIUM LEVEL 2.5 MG/DL (1.8-2.4); POTASSIUM SERUM 4.1 MEQ/L (3.5-5.1); SODIUM LEVEL 142 MEQ/L (136-145); TOTAL PROTEIN 6.1 GM/DL (6.4-8.2)
[2020-08-20] MEDS: HEPARIN SOD (PORCINE) 5000UNITS/ML 1ML VIAL/SYRINGE SQ SCH ×2 (09:47→20:58)
[2020-08-20] MEDS: ASPIRIN 300 MG SUPP PR SCH (09:49)
[2020-08-20] MEDS: FUROSEMIDE 20MG/2ML VIAL (J1940) IV SCH (09:49)
--- NOTE | 2020-08-20 13:03 | IPNPDOC ---
Text Note Date of Service The patient was seen on 08/20/20. NOTE Subjective: Patient developed good progress in swallowing. No fever or chills overnight Objective: GENERAL APPEARANCE: ill looking male HEENT: no scleral icterus, no JVD, EOMI CARDIOVASCULAR: S1S2 LUNGS: Diminished lung sounds bilaterally, gurgling sounds over trachea ABDOMEN: soft & not tender w palpitation MUSCULOSKELETAL: no cyanosis, no swelling INTEGUMENT: no generalized pallor NEUROLOGICAL: Left hemiplegia, no nuchal rigidity Assessment and Plan Pt is an 80 year old male without medical history who presents with left sided weakness. Resolved in the ED. 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 Diet was modified to nectar thickening liquids No atrial fibrillation on telemetry or EKG Echo showed Normal global left ventricular systolic function with mild concentric left ventricular hypertrophy. There are some features of left ventricular diastolic dysfunction manifested by abnormal relaxation On 08/20/20 speech specialist evaluation: recommended rec diet (c/w lvl 1/pureed w NTL) Continue statin, aspirin Aspiration pneumonia/dysphagia X-ray showed Left lower lobe infiltrate consistent with pneumonia Speech eval daily Procalcitonin 0.09 on 08/15/20 Today patient has mild leukocytosis of 11.9. Patient completed the course of meropenem. Blood culture negative from 08/14/[address] chest showed Bibasilar infiltrates and small bilateral pleural effusions as described. Dependent atelectasis posteriorly in the upper lobes bilaterally. Patient has a high risk for aspiration Patient has increased leukocytosis on 08/19/20, could be secondary to reactive pneumonitis due to aspiration. X-ray was done and showed improved bibasilar atelectasis/infiltrate with minimal residual. I started Zosyn empirically day 2 Blood culture negative Acute Diastolic CHF BNP elevated on 08/14/20 to 1459 Continue Lasix IV Hypernatremia Resolved Continue TPN without sodium Hypertension Labetalol IV every hour when necessary Continue amlodipine and lisinopril Hypokalemia Resolved Palliative care encounter Prognosis remains poor. Follow-up with palliative care Oropharyngeal dysfunction Pt presents with mild-moderate oropharyngeal phase dysphagia . Diet was modified to Puree solids and nectar thick liquids (no straws). Recommend: Meds crushed Recommend: Assist with feeding DVT ppx Heparin 5000 BID VS,Fishbone, I+O VS, Fishbone, I+O Laboratory Tests 08/20/20 05:32 Vital Signs Date Time Temp Pulse Resp B/P (MAP) Pulse Ox O2 Delivery O2 Flow Rate FiO2 08/20/20 12:46 138/63 08/20/20 12:00 98.4 75 20 97 High Flow Cannula 5.0 I&O- Last 24 Hours up to 6 AM 08/20/20 06:00 Intake Total 970 ml Output Total 1750 ml Balance -780 ml VICKY ALEGRE DO Aug 20, 2020 13:03
[2020-08-20] MEDS ORDERED: ASPIRIN 81 MG CHEW TABLET PO ONE (13:05)
--- NOTE | 2020-08-20 14:12 | IPNPDOC ---
Subjective General Date/Time Seen The patient was seen on 08/20/20 at 12:54. Subject Chief Complaint/History The patient is a 80-year-old male admitted with a reason for visit of TIA. SUBJECTIVE: Mr. Caballero was seen and examined at the bedside this morning. No acute events were reported from overnight. He continues to improve in terms of his mental status but is still only grunting when asked questions. He was observed having somewhat difficult breathing and making gurgling sounds yesterday, but this has improved. Nursing reports that he is eating small portions of food this morning, but did not eat all of his lunch. He is swallowing better but has a poor appetite and fatigues easily while eating. OBJECTIVE: PHYSICAL EXAMINATION: VITAL SIGNS: see below GENERAL: Awake, does not appear in any acute distress, appears stated age HEENT: PERRL, EOMI, Oral mucous membranes are moist without lesions. NECK: Mildly elevated JVD is noted. No adenopathy is appreciated. No thyromegaly CHEST/LUNGS: Lungs are clear bilaterally without rhonchi, rales, or wheezes. There is no subcutaneous air appreciated. There is no tenderness to the chest wall. HEART:Regular rate and rhythm. No murmurs, rubs, or gallops are appreciated. Distal pulses are 2+. No carotid bruits appreciated. ABDOMEN: Soft, nontender, and nondistended. Bowel sounds are positive. No organomegaly is appreciated. No masses are appreciated. There are no peritoneal signs. There is no Flintstone sign. EXTREMITIES: There is trace peripheral edema. There is no focal long bone tenderness or deformity. SKIN: The patients skin is warm and dry, without rashes or lesions. PSYCHIATRIC: Unable to assess due to patient's cognitive status NEUROLOGIC: The patient has speech deficits, left upper extremity is contracted, unable to assess full neurologic exam IMAGING: CXR 08/19/20: FINDINGS: Previously noted patchy parenchymal opacities in each lung base have improved with minimal residual. The heart is not enlarged. There is calcification of the thoracic aorta. The mediastinal silhouette is unchanged. Right arm PICC line is seen with the tip in the superior vena cava. IMPRESSION: Improved bibasilar atelectasis/infiltrate with minimal residual. ASSESSMENT: This is an 80-year-old male with history of hypertension who presented with left-sided weakness found to have acute CVA now complicated by dysphasia and resulting severe protein calorie malnutrition requiring IV TPN. PLAN: 1. Severe protein calorie malnutrition secondary to dysphagia: -Continue IV TPN. Encourage patient to eat solid foods, will hold off on another TPN order for today, allow yesterday's bag to run until 6 PM tonight and will determine whether we need to order additional TPN tomorrow morning. -Magnesium somewhat elevated at 2. 5 today, phosphorus improved to 4.1 -Continue scopolamine for secretion management 2. History of congestive heart failure: -Continue daily Lasix IV 20 mg -Renal function improved today, BUNs/creatinine 42/1.01. Will continue to monitor. 3. History of aspiration pneumonitis: -WBC down to 11.6 today -Continue empiric IV Zosyn -Continue suctioning and oral care as prescribed by speech therapy 4. Hypertension: BP well-controlled at this time -Continue PRN labetalol, Lopressor with hold parameters as written -Currently holding all oral antihypertensives due to aspiration precautions 5. History of recent CVA: -Continue physical therapy, dysphasia treatment -Continue Lipitor and aspirin Disposition: Encourage safe oral intake of food and drink. Holding off on additional TPN today. Current Medications Current Medications Current Medications Medications (Trade) Dose Ordered Sig/Lloyd Route PRN Reason Start Time Stop Time Status Last Admin Dose Admin Acetaminophen (Tylenol Suppository) 650 mg Q4HP PRN [place] PAIN / FEVER 08/10/20 16:15 08/15/20 09:29 Amlodipine Besylate (Norvasc) 2.5 mg DAILY PO 08/09/20 09:00 08/10/20 07:23 DC 08/09/20 10:16 Amlodipine Besylate (Norvasc) 5 mg DAILY PO 08/07/20 09:00 08/07/20 18:40 DC 08/07/20 09:35 Amlodipine Besylate (Norvasc) 5 mg DAILY PO 08/10/20 09:00 08/10/20 16:11 DC 08/10/20 09:03 Amlodipine Besylate (Norvasc) 10 mg DAILY PO 08/17/20 09:00 08/20/20 12:25 DC 08/18/20 09:45 Amlodipine Besylate (Norvasc) 10 mg DAILY PO 08/20/20 09:00 08/20/20 12:46 Aspirin (Aspirin) 300 mg DAILY [place] 08/11/20 09:00 08/20/20 09:49 Aspirin (Ecotrin) 81 mg DAILY PO 08/07/20 09:00 08/10/20 16:11 DC 08/10/20 09:03 Atorvastatin Calcium (Lipitor) 40 mg DAILY PO 08/17/20 09:00 08/18/20 09:44 Clopidogrel Bisulfate (PLAVix) 75 mg DAILY PO 08/07/20 09:00 08/10/20 16:11 DC 08/10/20 09:02 Dextrose/Sodium Chloride 1,000 ml @ 150 mls/hr Q6H40M IV 08/10/20 13:45 08/13/20 10:40 DC 08/13/20 09:39 Dextrose/Water 500 ml @ 50 mls/hr Q10H IV 08/14/20 11:35 08/15/20 15:09 DC 08/14/20 12:18 Docusate Sodium (Colace) 100 mg BID PO 08/08/20 09:00 08/10/20 13:55 DC 08/09/20 10:16 Furosemide (LASIX injection) 20 mg DAILY IV 08/18/20 09:00 08/20/20 09:49 Heparin Sodium (Heparin (Flush)) 200 units ASDIRECTED PRN IV SEE LABEL COMMENTS 08/12/20 18:35 Heparin Sodium (Heparin (Flush)) 200 units PICC IV 08/13/20 06:00 08/20/20 05:05 Heparin Sodium (Porcine) (Heparin) 5,000 units BID SQ 08/13/20 21:00 08/20/20 09:47 Home Med (Med Rec Complete!) ASDIRECTED XX 08/06/20 17:50 08/06/20 17:49 DC Hydralazine HCl (Apresoline) 10 mg Q1HP PRN IV SBP > 170 08/13/20 07:50 08/13/20 10:23 DC Hydralazine HCl (Apresoline) 10 mg Q4HP PRN IV SBP > 170 08/10/20 18:15 08/13/20 07:48 DC 08/12/20 18:38 Hydralazine HCl (Apresoline) 10 mg Q6HP PRN IV SBP > 170 08/08/20 19:10 08/10/20 16:11 DC 08/10/20 14:53 Insulin Human Lispro (HumaLOG INSULIN) See Protocol Table Q6H [place] 08/13/20 18:00 08/14/20 12:01 DC 08/14/20 12:22 Insulin Human Lispro (HumaLOG INSULIN) See Protocol Table Q6H [place] 08/14/20 18:00 08/15/20 12:01 DC 08/15/20 12:22 Insulin Human Lispro (HumaLOG INSULIN) See Protocol Table Q6H [place] 08/15/20 18:00 08/16/20 12:01 DC 08/16/20 12:21 Insulin Human Lispro (HumaLOG INSULIN) See Protocol Table Q6H [place] 08/16/20 18:00 08/17/20 12:01 DC 08/17/20 06:46 Insulin Human Lispro (HumaLOG INSULIN) See Protocol Table Q6H [place] 08/17/20 18:00 08/18/20 12:01 DC 08/18/20 11:50 Insulin Human Lispro (HumaLOG INSULIN) See Protocol Table Q6H [place] 08/18/20 18:00 08/19/20 12:01 DC 08/19/20 05:55 Insulin Human Lispro (HumaLOG INSULIN) See Protocol Table Q6H [place] 08/19/20 18:00 08/20/20 12:01 DC 08/20/20 12:29 Labetalol HCl (Normodyne, Trandate) 10 mg Q1H PRN IV SBP>170 08/13/20 10:20 08/17/20 01:44 Labetalol HCl (Normodyne, Trandate) 20 mg STAT STAT IV 08/11/20 07:53 08/11/20 07:54 DC 08/11/20 08:17 Lactated Ringer's 1,000 ml @ 150 mls/hr Q6H40M IV 08/09/20 07:20 08/10/20 13:55 DC 08/10/20 13:51 Lisinopril (Prinivil) 20 mg DAILY PO 08/17/20 09:00 08/20/20 12:31 DC 08/18/20 09:44 Lisinopril (Prinivil) 20 mg DAILY PO 08/20/20 09:00 08/20/20 12:46 Meropenem 1 gm/IV Miscellaneous Supplies 50 ml @ 100 mls/hr Q8H IV 08/10/20 14:00 08/17/20 11:06 DC 08/17/20 05:22 Metoprolol Tartrate (Lopressor) 2.5 mg STAT STAT IV 08/12/20 22:07 08/12/20 22:08 DC 08/12/20 22:27 Metoprolol Tartrate (Lopressor) 5 mg Q1HP PRN IV HR>110 08/13/20 10:20 Omeprazole (PriLOSEC) 40 mg DAILY PO 08/17/20 09:00 08/18/20 09:44 Ondansetron HCl (ZOFRAN INJection) 4 mg Q6HP PRN IV NAUSEA OR VOMITING 08/07/20 18:25 08/08/20 13:32 Oxymetazoline HCl (Afrin) 2 spray ASDIRECTED PRN NA SEE LABEL COMMENTS 08/15/20 09:00 Pantoprazole Sodium (Protonix) 40 mg DAILY IV 08/10/20 13:45 08/17/20 07:51 DC 08/16/20 10:20 Piperacillin Sod/ Tazobactam Sod 3.375 gm/Dextrose 50 ml @ 50 mls/hr Q6H IV 08/19/20 08:00 08/20/20 09:49 Potassium Chloride 10 meq/ IV Miscellaneous Supplies 100 ml @ 100 mls/hr Q1H IV 08/13/20 10:00 08/13/20 11:59 DC 08/13/20 12:22 Potassium Chloride 20 meq/ Potassium Phosphate 30 mmol/ Magnesium Sulfate 5.6 meq/Calcium Gluconate 1389 mg/ Multivitamins 10 ml/Chromium/ Copper/Manganese/ Seleni/Zn 1 ml/ Amino Acids/ Dextrose 2,046.29 ml @ 60 mls/hr ONCE@1800 IV 08/19/20 18:00 08/20/20 17:59 08/19/20 19:22 Potassium Chloride 20 meq/ Potassium Phosphate 30 mmol/ Magnesium Sulfate 11.1 meq/Calcium Gluconate 1389 mg/ Amino Acids/ Dextrose 2,036.665 ml @ 60 mls/hr ONCE@1800 IV 08/17/20 18:00 08/18/20 17:59 DC 08/17/20 17:57 Potassium Chloride 40 meq/ Potassium Phosphate 20 mmol/ Magnesium Sulfate 9.52 meq/Calcium Gluconate 1190 mg/ Amino Acids/ Dextrose 2,040.9467 ml @ 70 mls/hr ONCE@1800 IV 08/15/20 18:00 08/16/20 17:59 DC 08/15/20 18:11 Potassium Chloride 40 meq/ Potassium Phosphate 20 mmol/ Magnesium Sulfate 9.52 meq/Calcium Gluconate 1190 mg/ Multivitamins 10 ml/Chromium/ Copper/Manganese/ Seleni/Zn 1 ml/ Amino Acids/ Dextrose 2,051.9467 ml @ 70 mls/hr ONCE@1800 IV 08/16/20 18:00 08/17/20 17:59 DC 08/16/20 18:40 Potassium Chloride 40 meq/ Potassium Phosphate 20 mmol/ Magnesium Sulfate 9.52 meq/Calcium Gluconate 1190 mg/ Multivitamins 10 ml/Chromium/ Copper/Manganese/ Seleni/Zn 1 ml/ Insulin Human Regular 10 units/ Amino Acids/ Dextrose 2,052.0467 ml @ 70 mls/hr ONCE@1800 IV 08/16/20 18:00 08/17/20 17:59 UNV Potassium Chloride 40 meq/ Potassium Phosphate 20 mmol/ Magnesium Sulfate 11.1 meq/Calcium Gluconate 1389 mg/ Multivitamins 10 ml/Chromium/ Copper/Manganese/ Seleni/Zn 1 ml/ Amino Acids/ Dextrose 2,054.3317 ml @ 70 mls/hr ONCE@1800 IV 08/14/20 18:00 08/15/20 17:59 DC 08/14/20 18:16 Potassium Chloride 80 meq/ Potassium Phosphate 40 mmol/ Magnesium Sulfate 11.1 meq/Calcium Gluconate 1389 mg/ Amino Acids/ Dextrose 2,069.9983 ml @ 60 mls/hr ONCE@1800 IV 08/13/20 18:00 08/14/20 17:59 DC 08/13/20 18:13 Potassium Phosphate 30 mmol/ Magnesium Sulfate 11.1 meq/Calcium Gluconate 1389 mg/ Amino Acids/ Dextrose 2,026.665 ml @ 60 mls/hr ONCE@1800 IV 08/18/20 18:00 08/19/20 17:59 DC 08/18/20 17:41 Pravastatin Sodium (Pravachol) 40 mg QHS PO 08/06/20 21:00 08/10/20 16:11 DC 08/09/20 22:09 Scopolamine (Scopolamine) 1 mg Q72H TOP 08/18/20 20:00 08/18/20 19:41 Sodium Chloride 1,000 ml @ 60 mls/hr [id number] IV 08/07/20 16:40 08/09/20 07:20 DC 08/08/20 19:45 Sodium Chloride 1,000 ml @ 80 mls/hr [id number] IV 08/19/20 11:05 08/20/20 02:13 DC 08/20/20 00:17 Sodium Chloride (Saline Lock Flush) 10 ml ASDIRECTED PRN IV SEE LABEL COMMENTS 08/12/20 18:35 Sodium Chloride (Saline Lock Flush) 10 ml PICC IV 08/13/20 06:00 08/20/20 05:05 Tamsulosin HCl (Flomax) 0.4 mg QHS PO 08/06/20 21:00 08/10/20 16:11 DC 08/09/20 22:09 Vancomycin HCl 750 mg/IV Miscellaneous Supplies 1 each/ Sodium Chloride 275 ml @ 275 mls/hr Q12H IV 08/15/20 04:00 08/15/20 12:20 DC 08/15/20 04:48 Vancomycin HCl 1000 mg/IV Miscellaneous Supplies 1 each/ Sodium Chloride 270 ml @ 270 mls/hr Q12H IV 08/14/20 10:30 08/14/20 11:24 DC Allergies Coded Allergies: No Known Allergies (Unverified , 08/06/20) VS,Fishbone, I+O VS, Fishbone, I+O Laboratory Tests 08/20/20 05:32 Vital Signs Date Time Temp Pulse Resp B/P (MAP) Pulse Ox O2 Delivery O2 Flow Rate FiO2 08/20/20 12:46 138/63 08/20/20 12:00 98.4 75 20 97 High Flow Cannula 5.0 I&O- Last 24 Hours up to 6 AM 08/20/20 06:00 Intake Total 970 ml Output Total 1750 ml Balance -780 ml GME ATTESTATION GME ATTESTATION My faculty preceptor for this patient encounter was physically present during the encounter and was fully available. All aspects of the patient interview, examination, medical decision making process, and medical care plan development were reviewed and approved by the faculty preceptor. The faculty preceptor is aware and concurs with the plan as stated in the body of this note and will attest to such by his/her cosignature. Attending Note Attending Note Recent CVA with dysphagia Dependence on TPN HTN CHF TOM on CKD Cont IV Lasix.Renal function improving. No TPN order today. Pt is eating a little more today. PERLA VALLEJO MD Aug 20, 2020 12:54 RUTH NARAYAN MD Aug 20, 2020 21:48
[2020-08-21] VITALS (20 sets, daily range): BP systolic 115–159; BP diastolic 58–84; O2SAT 92–100
[2020-08-21] MEDS ORDERED: ZOSYN 3.375GM VIAL (J2543) As Ordered ONE (01:44)
[2020-08-21] MEDS: PIPERACILLIN/TAZOBACTAM SOD 3.375 GM in D5W MINI-BAG PLUS 50 ML IV SCH ×4 (02:59→20:48)
[2020-08-21 05:31] LABS: BASO % 0.3 % (0.0-1.0); EOS # 0.2 10^3/uL (0.0-0.5); EOS % 1.4 % (0.0-3.0); HEMATOCRIT 38.8 % (42.0-52.0); HEMOGLOBIN 12.7 g/dl (13.5-17.5); LYMPH # 0.8 10^3/uL (1.5-5.0); LYMPH % 6.7 % (24.0-44.0); MEAN CORPUSCULAR HEMOGLOBIN 31.4 pg (27.0-33.0); MEAN CORPUSCULAR HGB CONC 32.7 g/dl (32.0-36.5); MEAN CORPUSCULAR VOLUME 95.8 fl (80.0-96.0); MONO % 8.2 % (2.0-8.0); NEUTROPHILS # 10.1 10^3/uL (1.5-8.5); NEUTROPHILS % 82.9 % (36.0-66.0); PLATELET COUNT, AUTOMATED 413 10^3/uL (150-450); RED BLOOD COUNT 4.05 10^6/uL (4.30-6.10); WHITE BLOOD COUNT 12.1 10^3/uL (4.0-10.0)
[2020-08-21] MEDS: SODIUM CHLORIDE 0.9% INJ 10 ML SYR IV SCH ×2 (05:45→17:11)
[2020-08-21 06:03] LABS: ALBUMIN 2.5 GM/DL (3.2-5.2); ALT/SGPT 80 U/L (12-78); BILIRUBIN,TOTAL 0.8 MG/DL (0.2-1.0); BLOOD UREA NITROGEN 40 MG/DL (7-18); CALCIUM LEVEL 8.7 MG/DL (8.8-10.2); CARBON DIOXIDE LEVEL 28 MEQ/L (21-32); CHLORIDE LEVEL 115 MEQ/L (98-107); CREATININE FOR GFR 1.13 MG/DL (0.70-1.30); GLOMERULAR FILTRATION RATE > 60.0 (>35); GLUCOSE, FASTING 109 MG/DL (70-100); MAGNESIUM LEVEL 2.5 MG/DL (1.8-2.4); POTASSIUM SERUM 4.4 MEQ/L (3.5-5.1); SODIUM LEVEL 145 MEQ/L (136-145)
[2020-08-21] MEDS: ASPIRIN 81 MG CHEW TABLET PO SCH (08:49)
[2020-08-21] MEDS: ATORVASTATIN 20 MG TAB PO SCH (08:50)
[2020-08-21] MEDS: HEPARIN SOD (PORCINE) 5000UNITS/ML 1ML VIAL/SYRINGE SQ SCH ×2 (08:50→20:49)
[2020-08-21] MEDS: OMEPRAZOLE 20 MG CAP PO SCH (08:50)
--- NOTE | 2020-08-21 10:53 | IPNPDOC ---
Text Note Date of Service The patient was seen on 08/21/20. NOTE Subjective: No any acute events overnight. Patient complains of poor appetite. He was able to eat just small portion of the food Objective: GENERAL APPEARANCE: ill looking male HEENT: no scleral icterus, no JVD, EOMI CARDIOVASCULAR: S1S2 LUNGS: Diminished lung sounds bilaterally, gurgling sounds over trachea ABDOMEN: soft & not tender w palpitation MUSCULOSKELETAL: no cyanosis, no swelling INTEGUMENT: no generalized pallor NEUROLOGICAL: Left hemiplegia, no nuchal rigidity Assessment and Plan Pt is an 80 year old male without medical history who presents with left sided weakness. Resolved in the ED. 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 Diet was modified to nectar thickening liquids No atrial fibrillation on telemetry or EKG Echo showed Normal global left ventricular systolic function with mild concentric left ventricular hypertrophy. There are some features of left ventricular diastolic dysfunction manifested by abnormal relaxation On 08/20/20 speech specialist evaluation: recommended rec diet (c/w lvl 1/pureed w NTL) Continue statin, aspirin Aspiration pneumonia/dysphagia X-ray showed Left lower lobe infiltrate consistent with pneumonia Speech eval daily Procalcitonin 0.09 on 08/15/20 Today patient has mild leukocytosis of 11.9. Patient completed the course of meropenem. Blood culture negative from 08/14/[address] chest showed Bibasilar infiltrates and small bilateral pleural effusions as described. Dependent atelectasis posteriorly in the upper lobes bilaterally. Patient has a high risk for aspiration Patient has increased leukocytosis on 08/19/20, could be secondary to reactive pneumonitis due to aspiration. X-ray was done and showed improved bibasilar atelectasis/infiltrate with minimal residual. I started Zosyn empirically day 3 Blood culture negative. Leukocytosis today of 12.1 Acute Diastolic CHF BNP elevated on 08/14/20 to 1459 Continue Lasix IV Hypernatremia Resolved Continue TPN without sodium Hypertension Labetalol IV every hour when necessary Continue amlodipine and lisinopril Hypokalemia Resolved Palliative care encounter Prognosis remains poor. Follow-up with palliative care Oropharyngeal dysfunction Pt presents with mild-moderate oropharyngeal phase dysphagia . Diet was modified to Puree solids and nectar thick liquids (no straws). Recommend: Meds crushed Recommend: Assist with feeding DVT ppx Heparin 5000 BID VS,Fishbone, I+O VS, Fishbone, I+O Laboratory Tests 08/21/20 04:59 Vital Signs Date Time Temp Pulse Resp B/P (MAP) Pulse Ox O2 Delivery O2 Flow Rate FiO2 08/21/20 08:50 140/84 08/21/20 08:50 82 08/21/20 07:23 97.7 18 98 High Flow Cannula 5.0 I&O- Last 24 Hours up to 6 AM 08/21/20 06:00 Intake Total 420 ml Output Total 2325 ml Balance -1905 ml VICKY ALEGRE DO Aug 21, 2020 10:53
[2020-08-21 13:45] LABS: APPEARANCE, URINE CLOUDY (CLEAR); BACTERIA, URINE AUTO NEGATIVE (NEGATIVE); BILIRUBIN, URINE AUTO NEGATIVE (NEGATIVE); BLOOD, URINE BLOOD 3+ (NEGATIVE); COLOR, URINE YELLOW (YELLOW); GLUCOSE, URINE (UA) AUTO NEGATIVE (NEGATIVE); KETONE, URINE AUTO NEGATIVE (NEGATIVE); LEUKOCYTE ESTERASE, URINE AUTO NEGATIVE (NEGATIVE); NITRITE, URINE AUTO NEGATIVE (NEGATIVE); PROTEIN, URINE AUTO 1+ mg/dL (NEGATIVE); RBC, URINE AUTO TNTC /HPF (0-3); SPECIFIC GRAVITY URINE AUTO 1.028 (1.002-1.035); SQUAMOUS EPITHELIAL CELL UR AU 0 /HPF (0-6); URIC ACID CRYSTALS MODERATE; UROBILINOGEN, URINE AUTO 0.2 mg/dL (0.0-2.0); WBC, URINE AUTO 7 /HPF (0-3)
--- NOTE | 2020-08-21 16:00 | IPNPDOC ---
Subjective General Date/Time Seen The patient was seen on 08/21/20 at 15:56. Subject Chief Complaint/History The patient is a 80-year-old male admitted with a reason for visit of TIA. SUBJECTIVE: Mr. Caballero was seen and examined at the bedside this morning. Nursing reports poor oral intake and continued poor appetite. Patient's mental status continues to slightly improve. Otherwise, no issues overnight. OBJECTIVE: PHYSICAL EXAMINATION: VITAL SIGNS: see below GENERAL: Awake, does not appear in any acute distress, appears stated age HEENT: PERRL, EOMI, Oral mucous membranes are moist without lesions. NECK: Mildly elevated JVD is noted. No adenopathy is appreciated. No thyromegaly CHEST/LUNGS: Lungs are clear bilaterally without rhonchi, rales, or wheezes. There is no subcutaneous air appreciated. There is no tenderness to the chest wall. HEART:Regular rate and rhythm. No murmurs, rubs, or gallops are appreciated. Distal pulses are 2+. No carotid bruits appreciated. ABDOMEN: Soft, nontender, and nondistended. Bowel sounds are positive. No organomegaly is appreciated. No masses are appreciated. There are no peritoneal signs. There is no Sherman sign. EXTREMITIES: There is trace peripheral edema. There is no focal long bone tenderness or deformity. SKIN: The patients skin is warm and dry, without rashes or lesions. PSYCHIATRIC: Unable to assess due to patient's cognitive status NEUROLOGIC: The patient has speech deficits, left upper extremity is contracted, unable to assess full neurologic exam IMAGING: No new imaging LABS: See below ASSESSMENT: This is an 80-year-old male with history of hypertension who presented with left-sided weakness found to have acute CVA now complicated by dysphasia and resulting severe protein calorie malnutrition requiring IV TPN. PLAN: 1. Severe protein calorie malnutrition secondary to dysphagia: -Continue IV TPN, order placed for today. Encourage PO intake -Magnesium somewhat elevated at 2.5 today -Continue scopolamine for secretion management 2. History of congestive heart failure: -Continue daily Lasix IV 20 mg -Renal function improved today, BUNs/creatinine 42/1.13. Will continue to monitor. 3. History of aspiration pneumonitis: -WBC 12.1 today -Continue empiric IV Zosyn -Continue suctioning and oral care as prescribed by speech therapy 4. Hypertension: BP well-controlled at this time -Oral antihypertensives restarted 5. History of recent CVA: -Continue physical therapy, dysphagia treatment -Continue Lipitor and aspirin Disposition: Encourage safe oral intake of food and drink. Continue TPN Current Medications Current Medications Current Medications Medications (Trade) Dose Ordered Sig/Lloyd Route PRN Reason Start Time Stop Time Status Last Admin Dose Admin Acetaminophen (Tylenol Suppository) 650 mg Q4HP PRN LA PAIN / FEVER 08/10/20 16:15 08/15/20 09:29 Amlodipine Besylate (Norvasc) 2.5 mg DAILY PO 08/09/20 09:00 08/10/20 07:23 DC 08/09/20 10:16 Amlodipine Besylate (Norvasc) 5 mg DAILY PO 08/07/20 09:00 08/07/20 18:40 DC 08/07/20 09:35 Amlodipine Besylate (Norvasc) 5 mg DAILY PO 08/10/20 09:00 08/10/20 16:11 DC 08/10/20 09:03 Amlodipine Besylate (Norvasc) 10 mg DAILY PO 08/17/20 09:00 08/20/20 12:25 DC 08/18/20 09:45 Amlodipine Besylate (Norvasc) 10 mg DAILY PO 08/20/20 09:00 08/21/20 08:50 Aspirin (Aspirin Chewable) 81 mg DAILY PO 08/21/20 09:00 08/21/20 08:49 Aspirin (Aspirin) 300 mg DAILY LA 08/11/20 09:00 08/20/20 13:04 DC 08/20/20 09:49 Aspirin (Ecotrin) 81 mg DAILY PO 08/07/20 09:00 08/10/20 16:11 DC 08/10/20 09:03 Atorvastatin Calcium (Lipitor) 40 mg DAILY PO 08/17/20 09:00 08/21/20 08:50 Clopidogrel Bisulfate (PLAVix) 75 mg DAILY PO 08/07/20 09:00 08/10/20 16:11 DC 08/10/20 09:02 Dextrose/Sodium Chloride 1,000 ml @ 150 mls/hr Q6H40M IV 08/10/20 13:45 08/13/20 10:40 DC 08/13/20 09:39 Dextrose/Water 500 ml @ 50 mls/hr Q10H IV 08/14/20 11:35 08/15/20 15:09 DC 08/14/20 12:18 Docusate Sodium (Colace) 100 mg BID PO 08/08/20 09:00 08/10/20 13:55 DC 08/09/20 10:16 Furosemide (LASIX injection) 20 mg DAILY IV 08/18/20 09:00 Hold 08/20/20 09:49 Heparin Sodium (Heparin (Flush)) 200 units ASDIRECTED PRN IV SEE LABEL COMMENTS 08/12/20 18:35 Heparin Sodium (Heparin (Flush)) 200 units PICC IV 08/13/20 06:00 08/21/20 05:45 Heparin Sodium (Porcine) (Heparin) 5,000 units BID SQ 08/13/20 21:00 08/21/20 08:50 Home Med (Med Rec Complete!) ASDIRECTED XX 08/06/20 17:50 08/06/20 17:49 DC Hydralazine HCl (Apresoline) 10 mg Q1HP PRN IV SBP > 170 08/13/20 07:50 08/13/20 10:23 DC Hydralazine HCl (Apresoline) 10 mg Q4HP PRN IV SBP > 170 08/10/20 18:15 08/13/20 07:48 DC 08/12/20 18:38 Hydralazine HCl (Apresoline) 10 mg Q6HP PRN IV SBP > 170 08/08/20 19:10 08/10/20 16:11 DC 08/10/20 14:53 Insulin Human Lispro (HumaLOG INSULIN) See Protocol Table Q6H MS 08/13/20 18:00 08/14/20 12:01 DC 08/14/20 12:22 Insulin Human Lispro (HumaLOG INSULIN) See Protocol Table Q6H MS 08/14/20 18:00 08/15/20 12:01 DC 08/15/20 12:22 Insulin Human Lispro (HumaLOG INSULIN) See Protocol Table Q6H MS 08/15/20 18:00 08/16/20 12:01 DC 08/16/20 12:21 Insulin Human Lispro (HumaLOG INSULIN) See Protocol Table Q6H MS 08/16/20 18:00 08/17/20 12:01 DC 08/17/20 06:46 Insulin Human Lispro (HumaLOG INSULIN) See Protocol Table Q6H MS 08/17/20 18:00 08/18/20 12:01 DC 08/18/20 11:50 Insulin Human Lispro (HumaLOG INSULIN) See Protocol Table Q6H MS 08/18/20 18:00 08/19/20 12:01 DC 08/19/20 05:55 Insulin Human Lispro (HumaLOG INSULIN) See Protocol Table Q6H MS 08/19/20 18:00 08/20/20 12:01 DC 08/20/20 12:29 Insulin Human Lispro (HumaLOG INSULIN) See Protocol Table Q6H MS 08/21/20 18:00 08/22/20 12:01 Labetalol HCl (Normodyne, Trandate) 10 mg Q1H PRN IV SBP>170 08/13/20 10:20 08/17/20 01:44 Labetalol HCl (Normodyne, Trandate) 20 mg STAT STAT IV 08/11/20 07:53 08/11/20 07:54 DC 08/11/20 08:17 Lactated Ringer's 1,000 ml @ 150 mls/hr Q6H40M IV 08/09/20 07:20 08/10/20 13:55 DC 08/10/20 13:51 Lisinopril (Prinivil) 20 mg DAILY PO 08/17/20 09:00 08/20/20 12:31 DC 08/18/20 09:44 Lisinopril (Prinivil) 20 mg DAILY PO 08/20/20 09:00 08/21/20 08:50 Meropenem 1 gm/IV Miscellaneous Supplies 50 ml @ 100 mls/hr Q8H IV 08/10/20 14:00 08/17/20 11:06 DC 08/17/20 05:22 Metoprolol Tartrate (Lopressor) 2.5 mg STAT STAT IV 08/12/20 22:07 08/12/20 22:08 DC 08/12/20 22:27 Metoprolol Tartrate (Lopressor) 5 mg Q1HP PRN IV HR>110 08/13/20 10:20 Omeprazole (PriLOSEC) 40 mg DAILY PO 08/17/20 09:00 08/21/20 08:50 Ondansetron HCl (ZOFRAN INJection) 4 mg Q6HP PRN IV NAUSEA OR VOMITING 08/07/20 18:25 08/08/20 13:32 Oxymetazoline HCl (Afrin) 2 spray ASDIRECTED PRN NA SEE LABEL COMMENTS 08/15/20 09:00 Pantoprazole Sodium (Protonix) 40 mg DAILY IV 08/10/20 13:45 08/17/20 07:51 DC 08/16/20 10:20 Piperacillin Sod/ Tazobactam Sod 3.375 gm/Dextrose 50 ml @ 50 mls/hr Q6H IV 08/19/20 08:00 08/21/20 13:06 Potassium Chloride 10 meq/ IV Miscellaneous Supplies 100 ml @ 100 mls/hr Q1H IV 08/13/20 10:00 08/13/20 11:59 DC 08/13/20 12:22 Potassium Chloride 20 meq/ Potassium Phosphate 30 mmol/ Magnesium Sulfate 5.6 meq/Calcium Gluconate 1389 mg/ Multivitamins 10 ml/Chromium/ Copper/Manganese/ Seleni/Zn 1 ml/ Amino Acids/ Dextrose 2,046.29 ml @ 60 mls/hr ONCE@1800 IV 08/19/20 18:00 08/20/20 17:59 DC 08/19/20 19:22 Potassium Chloride 20 meq/ Potassium Phosphate 30 mmol/ Magnesium Sulfate 11.1 meq/Calcium Gluconate 1389 mg/ Amino Acids/ Dextrose 2,036.665 ml @ 60 mls/hr ONCE@1800 IV 08/17/20 18:00 08/18/20 17:59 DC 08/17/20 17:57 Potassium Chloride 40 meq/ Potassium Phosphate 20 mmol/ Magnesium Sulfate 9.52 meq/Calcium Gluconate 1190 mg/ Amino Acids/ Dextrose 2,040.9467 ml @ 70 mls/hr ONCE@1800 IV 08/15/20 18:00 08/16/20 17:59 DC 08/15/20 18:11 Potassium Chloride 40 meq/ Potassium Phosphate 20 mmol/ Magnesium Sulfate 9.52 meq/Calcium Gluconate 1190 mg/ Multivitamins 10 ml/Chromium/ Copper/Manganese/ Seleni/Zn 1 ml/ Amino Acids/ Dextrose 2,051.9467 ml @ 70 mls/hr ONCE@1800 IV 08/16/20 18:00 08/17/20 17:59 DC 08/16/20 18:40 Potassium Chloride 40 meq/ Potassium Phosphate 20 mmol/ Magnesium Sulfate 9.52 meq/Calcium Gluconate 1190 mg/ Multivitamins 10 ml/Chromium/ Copper/Manganese/ Seleni/Zn 1 ml/ Insulin Human Regular 10 units/ Amino Acids/ Dextrose 2,052.0467 ml @ 70 mls/hr ONCE@1800 IV 08/16/20 18:00 08/17/20 17:59 UNV Potassium Chloride 40 meq/ Potassium Phosphate 20 mmol/ Magnesium Sulfate 11.1 meq/Calcium Gluconate 1389 mg/ Multivitamins 10 ml/Chromium/ Copper/Manganese/ Seleni/Zn 1 ml/ Amino Acids/ Dextrose 2,054.3317 ml @ 70 mls/hr ONCE@1800 IV 08/14/20 18:00 08/15/20 17:59 DC 08/14/20 18:16 Potassium Chloride 80 meq/ Potassium Phosphate 40 mmol/ Magnesium Sulfate 11.1 meq/Calcium Gluconate 1389 mg/ Amino Acids/ Dextrose 2,069.9983 ml @ 60 mls/hr ONCE@1800 IV 08/13/20 18:00 08/14/20 17:59 DC 08/13/20 18:13 Potassium Phosphate 30 mmol/ Magnesium Sulfate 5.6 meq/Calcium Gluconate 1389 mg/ Multivitamins 10 ml/Chromium/ Copper/Manganese/ Seleni/Zn 1 ml/ Amino Acids/ Dextrose 2,036.29 ml @ 60 mls/hr ONCE@1800 IV 08/21/20 18:00 08/22/20 17:59 Potassium Phosphate 30 mmol/ Magnesium Sulfate 11.1 meq/Calcium Gluconate 1389 mg/ Amino Acids/ Dextrose 2,026.665 ml @ 60 mls/hr ONCE@1800 IV 08/18/20 18:00 08/19/20 17:59 DC 08/18/20 17:41 Pravastatin Sodium (Pravachol) 40 mg QHS PO 08/06/20 21:00 08/10/20 16:11 DC 08/09/20 22:09 Scopolamine (Scopolamine) 1 mg Q72H TOP 08/18/20 20:00 08/18/20 19:41 Sodium Chloride 1,000 ml @ 60 mls/hr [id number] IV 08/07/20 16:40 08/09/20 07:20 DC 08/08/20 19:45 Sodium Chloride 1,000 ml @ 80 mls/hr [id number] IV 08/19/20 11:05 08/20/20 02:13 DC 08/20/20 00:17 Sodium Chloride (Saline Lock Flush) 10 ml ASDIRECTED PRN IV SEE LABEL COMMENTS 08/12/20 18:35 Sodium Chloride (Saline Lock Flush) 10 ml PICC IV 08/13/20 06:00 08/21/20 05:45 Tamsulosin HCl (Flomax) 0.4 mg QHS PO 08/06/20 21:00 08/10/20 16:11 DC 08/09/20 22:09 Vancomycin HCl 750 mg/IV Miscellaneous Supplies 1 each/ Sodium Chloride 275 ml @ 275 mls/hr Q12H IV 08/15/20 04:00 08/15/20 12:20 DC 08/15/20 04:48 Vancomycin HCl 1000 mg/IV Miscellaneous Supplies 1 each/ Sodium Chloride 270 ml @ 270 mls/hr Q12H IV 08/14/20 10:30 08/14/20 11:24 DC Allergies Coded Allergies: No Known Allergies (Unverified , 08/06/20) VS,Fishbone, I+O VS, Fishbone, I+O Laboratory Tests 08/21/20 04:59 Vital Signs Date Time Temp Pulse Resp B/P (MAP) Pulse Ox O2 Delivery O2 Flow Rate FiO2 08/21/20 15:32 97.6 79 18 159/77 (104) 98 High Flow Cannula 5.0 I&O- Last 24 Hours up to 6 AM 08/21/20 06:00 Intake Total 420 ml Output Total 2325 ml Balance -1905 ml GME ATTESTATION GME ATTESTATION My faculty preceptor for this patient encounter was physically present during the encounter and was fully available. All aspects of the patient interview, examination, medical decision making process, and medical care plan development were reviewed and approved by the faculty preceptor. The faculty preceptor is aware and concurs with the plan as stated in the body of this note and will attest to such by his/her cosignature. Attending Note Attending Note CVA with dysphagia/Aspiration. TPN dependence HTN CHF Lasix held for 2 days. Restart TPN today. Orders written. Watch for aspiration. Abx as per med team. OK to cont current antihypertensive. PERLA VALLEJO MD Aug 21, 2020 16:00 RUTH NARAYAN MD Aug 21, 2020 22:35
[2020-08-21] MEDS: HumaLOG INSULIN (NovoLOG) PER UNIT SC SCH (17:11)
[2020-08-21] MEDS ORDERED: MAGNESIUM SULFATE IV SCH ×6 (18:00)
[2020-08-21] MEDS ORDERED: [UNRECOGNIZED DRUG - OTHER] IV SCH ×6 (18:00)
[2020-08-21] MEDS ORDERED: POTASSIUM PHOSPHATE IV SCH ×6 (18:00)
[2020-08-21] MEDS: SCOPOLAMINE 1MG TRANSDERMAL PATCH TOP SCH (20:48)
[2020-08-22] VITALS (26 sets, daily range): BP systolic 130–155; BP diastolic 63–77; O2SAT 80–98
[2020-08-22] MEDS ORDERED: IPRATROPIUM 0.5MG/ALBUTEROL 2.5MG INH SOL UD 3ML (DUONEB) NEB ONE (01:00)
[2020-08-22] MEDS: PIPERACILLIN/TAZOBACTAM SOD 3.375 GM in D5W MINI-BAG PLUS 50 ML IV SCH ×4 (02:56→20:26)
[2020-08-22 05:42] LABS: BASO # 0.1 10^3/uL (0.0-0.2); BASO % 0.5 % (0.0-1.0); EOS # 0.2 10^3/uL (0.0-0.5); EOS % 1.7 % (0.0-3.0); HEMATOCRIT 38.2 % (42.0-52.0); HEMOGLOBIN 12.2 g/dl (13.5-17.5); LYMPH # 0.7 10^3/uL (1.5-5.0); LYMPH % 6.1 % (24.0-44.0); MEAN CORPUSCULAR HEMOGLOBIN 30.7 pg (27.0-33.0); MEAN CORPUSCULAR HGB CONC 31.9 g/dl (32.0-36.5); MEAN CORPUSCULAR VOLUME 96.2 fl (80.0-96.0); MONO % 8.5 % (2.0-8.0); NEUTROPHILS # 9.9 10^3/uL (1.5-8.5); NEUTROPHILS % 82.7 % (36.0-66.0); PLATELET COUNT, AUTOMATED 423 10^3/uL (150-450); RED BLOOD COUNT 3.97 10^6/uL (4.30-6.10); WHITE BLOOD COUNT 11.9 10^3/uL (4.0-10.0)
[2020-08-22] MEDS: HumaLOG INSULIN (NovoLOG) PER UNIT SC SCH ×4 (05:56→17:24)
[2020-08-22] MEDS: SODIUM CHLORIDE 0.9% INJ 10 ML SYR IV SCH ×2 (05:57→17:23)
[2020-08-22 06:07] LABS: ALBUMIN 2.3 GM/DL (3.2-5.2); ALT/SGPT 68 U/L (12-78); BILIRUBIN,TOTAL 0.7 MG/DL (0.2-1.0); BLOOD UREA NITROGEN 35 MG/DL (7-18); CALCIUM LEVEL 8.9 MG/DL (8.8-10.2); CARBON DIOXIDE LEVEL 27 MEQ/L (21-32); CHLORIDE LEVEL 114 MEQ/L (98-107); CREATININE FOR GFR 1.04 MG/DL (0.70-1.30); GLOMERULAR FILTRATION RATE > 60.0 (>35); GLUCOSE, FASTING 151 MG/DL (70-100); MAGNESIUM LEVEL 2.5 MG/DL (1.8-2.4); POTASSIUM SERUM 4.2 MEQ/L (3.5-5.1); SODIUM LEVEL 144 MEQ/L (136-145)
[2020-08-22] MEDS: ASPIRIN 81 MG CHEW TABLET PO SCH (08:27)
[2020-08-22] MEDS: HEPARIN SOD (PORCINE) 5000UNITS/ML 1ML VIAL/SYRINGE SQ SCH ×2 (08:28→20:26)
[2020-08-22] MEDS: OMEPRAZOLE 20 MG CAP PO SCH (08:28)
[2020-08-22] MEDS: ATORVASTATIN 20 MG TAB PO SCH (08:28)
[2020-08-22] MEDS: FUROSEMIDE 20MG/2ML VIAL (J1940) IV SCH (09:58)
--- NOTE | 2020-08-22 13:17 | IPNPDOC ---
Text Note Date of Service The patient was seen on 08/22/20. I saw Mr Caballero last week. At that time he had complaint of paralysis and had passed a swallow test and was cleared to drink thickened liquids. It was my observation at that time he was unlikely to be able to follow up in my clinic given his mobility issues. I am informed today transit planner wanted me to evaluate him. NOthing has changed since last week; he is ordered thickened liquids but chokes even on very small amounts of thickened liquid. He has TPN running and that is preventing him from going to SNF for short term rehab. The family should be contacted regarding ongoing TPN. This is meant as a short term measure, not to be used chronically. If Mr. Caballero wants a feeding tube, that could be donsidered though they are not without problems and actually do not prolong life according to the literature. I continue to thik he is hospice appropriate but since he wishes to try and geet sstronger with rehab, that should be honored. In order to do that, he would need a feeding tube for placement in SNF. If he does not want a feeding tube, then consideration should be given to withdrawing TPN. VS,Fishbone, I+O VS, Fishbone, I+O Laboratory Tests 08/22/20 04:58 Vital Signs Date Time Temp Pulse Resp B/P (MAP) Pulse Ox O2 Delivery O2 Flow Rate FiO2 08/22/20 11:34 97.6 82 18 139/63 (88) 98 High Flow Cannula 5.0 I&O- Last 24 Hours up to 6 AM 08/22/20 06:00 Intake Total 480 ml Output Total 1525 ml Balance -1045 ml Marika KING [employer] OFFICE MANAGER Aug 22, 2020 13:17
--- NOTE | 2020-08-22 14:01 | IPNPDOC ---
Text Note Date of Service The patient was seen on 08/22/20. NOTE Subjective: Patient looked exhausted. He has a very poor appetite. During the daytime nurse reported a few episodes of aspiration Objective: GENERAL APPEARANCE: ill looking male HEENT: no scleral icterus, no JVD, EOMI CARDIOVASCULAR: S1S2 LUNGS: Diminished lung sounds bilaterally, gurgling sounds over trachea ABDOMEN: soft & not tender w palpitation MUSCULOSKELETAL: no cyanosis, no swelling INTEGUMENT: no generalized pallor NEUROLOGICAL: Left hemiplegia, no nuchal rigidity Assessment and Plan Pt is an 80 year old male without medical history who presents with left sided weakness. Resolved in the ED. 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 Diet was modified to nectar thickening liquids No atrial fibrillation on telemetry or EKG Echo showed Normal global left ventricular systolic function with mild concentric left ventricular hypertrophy. There are some features of left ventricular diastolic dysfunction manifested by abnormal relaxation On 08/20/20 speech specialist evaluation: recommended rec diet (c/w lvl 1/pureed w NTL) Continue statin, aspirin Will continue TPN. I will discuss with family the goals of treatment Aspiration pneumonia/dysphagia X-ray showed Left lower lobe infiltrate consistent with pneumonia Speech eval daily Procalcitonin 0.09 on 08/15/20 Today patient has mild leukocytosis of 11.9. Patient completed the course of meropenem. Blood culture negative from 08/14/[address] chest showed Bibasilar infiltrates and small bilateral pleural effusions as described. Dependent atelectasis posteriorly in the upper lobes bilaterally. Patient has a high risk for aspiration Patient has increased leukocytosis on 08/19/20, could be secondary to reactive pneumonitis due to aspiration. X-ray was done and showed improved bibasilar atelectasis/infiltrate with minimal residual. I started Zosyn empirically day 3 Blood culture negative. Leukocytosis today improved DuoNeb [id number] Acute Diastolic CHF BNP elevated on 08/14/20 to 1459 Continue Lasix IV Hypernatremia Continue TPN without sodium Hypertension Labetalol IV every hour when necessary Continue amlodipine and lisinopril Hypokalemia Resolved Palliative care encounter Prognosis remains poor. Follow-up with palliative care Oropharyngeal dysfunction Pt presents with mild-moderate oropharyngeal phase dysphagia . Diet was modified to Puree solids and nectar thick liquids (no straws). Recommend: Meds crushed Recommend: Assist with feeding DVT ppx Heparin 5000 BID VS,Fishbone, I+O VS, Fishbone, I+O Laboratory Tests 08/22/20 04:58 Vital Signs Date Time Temp Pulse Resp B/P (MAP) Pulse Ox O2 Delivery O2 Flow Rate FiO2 08/22/20 13:39 110 24 08/22/20 11:34 97.6 139/63 (88) 98 High Flow Cannula 5.0 I&O- Last 24 Hours up to 6 AM 08/22/20 06:00 Intake Total 480 ml Output Total 1525 ml Balance -1045 ml VICKY ALEGRE DO Aug 22, 2020 14:01
[2020-08-22] MEDS ORDERED: [UNRECOGNIZED DRUG - OTHER] IV SCH (18:00)
[2020-08-22] MEDS ORDERED: CALCIUM GLUCONATE IV SCH (18:00)
[2020-08-22] MEDS ORDERED: POTASSIUM PHOSPHATE IV SCH (18:00)
--- NOTE | 2020-08-22 19:14 | IPNPDOC ---
Subjective General Date/Time Seen The patient was seen on 08/22/20 at 19:12. Subject Chief Complaint/History The patient is a 80-year-old male admitted with a reason for visit of TIA. SUBJECTIVE: Mr. Caballero was seen and examined at the bedside this morning. Nursing reports several episodes of aspiration yesterday. He is in good spirits and minimally responsive today. Overnight he was found to be more hypoxic and making more gurgling noises, so he got one breathing treatment and these symptoms resolved. OBJECTIVE: PHYSICAL EXAMINATION: VITAL SIGNS: see below GENERAL: Awake, does not appear in any acute distress, appears stated age HEENT: PERRL, EOMI, Oral mucous membranes are moist without lesions. NECK: Mildly elevated JVD is noted. No adenopathy is appreciated. No thyromegaly CHEST/LUNGS: Lungs are clear bilaterally without rhonchi, rales, or wheezes. There is no subcutaneous air appreciated. There is no tenderness to the chest wall. HEART:Regular rate and rhythm. No murmurs, rubs, or gallops are appreciated. Distal pulses are 2+. No carotid bruits appreciated. ABDOMEN: Soft, nontender, and nondistended. Bowel sounds are positive. No organomegaly is appreciated. No masses are appreciated. There are no peritoneal signs. There is no [place] sign. EXTREMITIES: There is trace peripheral edema. There is no focal long bone tenderness or deformity. SKIN: The patients skin is warm and dry, without rashes or lesions. PSYCHIATRIC: Unable to assess due to patient's cognitive status NEUROLOGIC: The patient has speech deficits, left upper extremity is contracted, unable to assess full neurologic exam IMAGING: No new imaging LABS: See below ASSESSMENT: This is an 80-year-old male with history of hypertension who presented with left-sided weakness found to have acute CVA now complicated by dysphasia and resulting severe protein calorie malnutrition requiring IV TPN. PLAN: 1. Severe protein calorie malnutrition secondary to dysphagia: -Continue IV TPN, order placed for today. Encourage PO intake -Continue scopolamine for secretion management 2. History of congestive heart failure: -Continue daily Lasix IV 20 mg -Renal function improved today, BUNs/creatinine 35/1.04. Will continue to monitor. 3. History of aspiration pneumonitis: -WBC 11.9 today -Continue empiric IV Zosyn -Continue suctioning and oral care as prescribed by speech therapy 4. Hypertension: BP well-controlled at this time -Oral antihypertensives restarted 5. History of recent CVA: -Continue physical therapy, dysphagia treatment -Continue Lipitor and aspirin Disposition: Encourage safe oral intake of food and drink. Continue TPN Current Medications Current Medications Current Medications Medications (Trade) Dose Ordered Sig/Lloyd Route PRN Reason Start Time Stop Time Status Last Admin Dose Admin Acetaminophen (Tylenol Suppository) 650 mg Q4HP PRN IA PAIN / FEVER 08/10/20 16:15 08/15/20 09:29 Albuterol/ Ipratropium (Duoneb (Ipr 0.5mg/Alb 2.5mg)) 3 ml RQ4H NEB 08/22/20 16:00 Amlodipine Besylate (Norvasc) 2.5 mg DAILY PO 08/09/20 09:00 08/10/20 07:23 DC 08/09/20 10:16 Amlodipine Besylate (Norvasc) 5 mg DAILY PO 08/07/20 09:00 08/07/20 18:40 DC 08/07/20 09:35 Amlodipine Besylate (Norvasc) 5 mg DAILY PO 08/10/20 09:00 08/10/20 16:11 DC 08/10/20 09:03 Amlodipine Besylate (Norvasc) 10 mg DAILY PO 08/17/20 09:00 08/20/20 12:25 DC 08/18/20 09:45 Amlodipine Besylate (Norvasc) 10 mg DAILY PO 08/20/20 09:00 08/22/20 08:28 Aspirin (Aspirin Chewable) 81 mg DAILY PO 08/21/20 09:00 08/22/20 08:27 Aspirin (Aspirin) 300 mg DAILY IA 08/11/20 09:00 08/20/20 13:04 DC 08/20/20 09:49 Aspirin (Ecotrin) 81 mg DAILY PO 08/07/20 09:00 08/10/20 16:11 DC 08/10/20 09:03 Atorvastatin Calcium (Lipitor) 40 mg DAILY PO 08/17/20 09:00 08/22/20 08:28 Clopidogrel Bisulfate (PLAVix) 75 mg DAILY PO 08/07/20 09:00 08/10/20 16:11 DC 08/10/20 09:02 Dextrose/Sodium Chloride 1,000 ml @ 150 mls/hr Q6H40M IV 08/10/20 13:45 08/13/20 10:40 DC 08/13/20 09:39 Dextrose/Water 500 ml @ 50 mls/hr Q10H IV 08/14/20 11:35 08/15/20 15:09 DC 08/14/20 12:18 Docusate Sodium (Colace) 100 mg BID PO 08/08/20 09:00 08/10/20 13:55 DC 08/09/20 10:16 Furosemide (LASIX injection) 20 mg DAILY IV 08/18/20 09:00 08/22/20 09:58 Heparin Sodium (Heparin (Flush)) 200 units ASDIRECTED PRN IV SEE LABEL COMMENTS 08/12/20 18:35 Heparin Sodium (Heparin (Flush)) 200 units PICC IV 08/13/20 06:00 08/22/20 17:23 Heparin Sodium (Porcine) (Heparin) 5,000 units BID SQ 08/13/20 21:00 08/22/20 08:28 Home Med (Med Rec Complete!) ASDIRECTED XX 08/06/20 17:50 08/06/20 17:49 DC Hydralazine HCl (Apresoline) 10 mg Q1HP PRN IV SBP > 170 08/13/20 07:50 08/13/20 10:23 DC Hydralazine HCl (Apresoline) 10 mg Q4HP PRN IV SBP > 170 08/10/20 18:15 08/13/20 07:48 DC 08/12/20 18:38 Hydralazine HCl (Apresoline) 10 mg Q6HP PRN IV SBP > 170 08/08/20 19:10 08/10/20 16:11 DC 08/10/20 14:53 Insulin Human Lispro (HumaLOG INSULIN) See Protocol Table Q6H SC 08/13/20 18:00 08/14/20 12:01 DC 08/14/20 12:22 Insulin Human Lispro (HumaLOG INSULIN) See Protocol Table Q6H SC 08/14/20 18:00 08/15/20 12:01 DC 08/15/20 12:22 Insulin Human Lispro (HumaLOG INSULIN) See Protocol Table Q6H SC 08/15/20 18:00 08/16/20 12:01 DC 08/16/20 12:21 Insulin Human Lispro (HumaLOG INSULIN) See Protocol Table Q6H NM 08/16/20 18:00 08/17/20 12:01 DC 08/17/20 06:46 Insulin Human Lispro (HumaLOG INSULIN) See Protocol Table Q6H NM 08/17/20 18:00 08/18/20 12:01 DC 08/18/20 11:50 Insulin Human Lispro (HumaLOG INSULIN) See Protocol Table Q6H NM 08/18/20 18:00 08/19/20 12:01 DC 08/19/20 05:55 Insulin Human Lispro (HumaLOG INSULIN) See Protocol Table Q6H NM 08/19/20 18:00 08/20/20 12:01 DC 08/20/20 12:29 Insulin Human Lispro (HumaLOG INSULIN) See Protocol Table Q6H NM 08/21/20 18:00 08/22/20 12:01 DC 08/22/20 05:56 Insulin Human Lispro (HumaLOG INSULIN) See Protocol Table Q6H NM 08/22/20 18:00 08/23/20 12:01 08/22/20 17:24 Labetalol HCl (Normodyne, Trandate) 10 mg Q1H PRN IV SBP>170 08/13/20 10:20 08/17/20 01:44 Labetalol HCl (Normodyne, Trandate) 20 mg STAT STAT IV 08/11/20 07:53 08/11/20 07:54 DC 08/11/20 08:17 Lactated Ringer's 1,000 ml @ 150 mls/hr Q6H40M IV 08/09/20 07:20 08/10/20 13:55 DC 08/10/20 13:51 Lisinopril (Prinivil) 20 mg DAILY PO 08/17/20 09:00 08/20/20 12:31 DC 08/18/20 09:44 Lisinopril (Prinivil) 20 mg DAILY PO 08/20/20 09:00 08/22/20 08:28 Meropenem 1 gm/IV Miscellaneous Supplies 50 ml @ 100 mls/hr Q8H IV 08/10/20 14:00 08/17/20 11:06 DC 08/17/20 05:22 Metoprolol Tartrate (Lopressor) 2.5 mg STAT STAT IV 08/12/20 22:07 08/12/20 22:08 DC 08/12/20 22:27 Metoprolol Tartrate (Lopressor) 5 mg Q1HP PRN IV HR>110 08/13/20 10:20 Omeprazole (PriLOSEC) 40 mg DAILY PO 08/17/20 09:00 08/22/20 08:28 Ondansetron HCl (ZOFRAN INJection) 4 mg Q6HP PRN IV NAUSEA OR VOMITING 08/07/20 18:25 08/08/20 13:32 Oxymetazoline HCl (Afrin) 2 spray ASDIRECTED PRN NA SEE LABEL COMMENTS 08/15/20 09:00 Pantoprazole Sodium (Protonix) 40 mg DAILY IV 08/10/20 13:45 08/17/20 07:51 DC 08/16/20 10:20 Piperacillin Sod/ Tazobactam Sod 3.375 gm/Dextrose 50 ml @ 50 mls/hr Q6H IV 08/19/20 08:00 08/22/20 14:46 Potassium Chloride 10 meq/ IV Miscellaneous Supplies 100 ml @ 100 mls/hr Q1H IV 08/13/20 10:00 08/13/20 11:59 DC 08/13/20 12:22 Potassium Chloride 20 meq/ Potassium Phosphate 30 mmol/ Magnesium Sulfate 5.6 meq/Calcium Gluconate 1389 mg/ Multivitamins 10 ml/Chromium/ Copper/Manganese/ Seleni/Zn 1 ml/ Amino Acids/ Dextrose 2,046.29 ml @ 60 mls/hr ONCE@1800 IV 08/19/20 18:00 08/20/20 17:59 DC 08/19/20 19:22 Potassium Chloride 20 meq/ Potassium Phosphate 30 mmol/ Magnesium Sulfate 11.1 meq/Calcium Gluconate 1389 mg/ Amino Acids/ Dextrose 2,036.665 ml @ 60 mls/hr ONCE@1800 IV 08/17/20 18:00 08/18/20 17:59 DC 08/17/20 17:57 Potassium Chloride 40 meq/ Potassium Phosphate 20 mmol/ Magnesium Sulfate 9.52 meq/Calcium Gluconate 1190 mg/ Amino Acids/ Dextrose 2,040.9467 ml @ 70 mls/hr ONCE@1800 IV 08/15/20 18:00 08/16/20 17:59 DC 08/15/20 18:11 Potassium Chloride 40 meq/ Potassium Phosphate 20 mmol/ Magnesium Sulfate 9.52 meq/Calcium Gluconate 1190 mg/ Multivitamins 10 ml/Chromium/ Copper/Manganese/ Seleni/Zn 1 ml/ Amino Acids/ Dextrose 2,051.9467 ml @ 70 mls/hr ONCE@1800 IV 08/16/20 18:00 08/17/20 17:59 DC 08/16/20 18:40 Potassium Chloride 40 meq/ Potassium Phosphate 20 mmol/ Magnesium Sulfate 9.52 meq/Calcium Gluconate 1190 mg/ Multivitamins 10 ml/Chromium/ Copper/Manganese/ Seleni/Zn 1 ml/ Insulin Human Regular 10 units/ Amino Acids/ Dextrose 2,052.0467 ml @ 70 mls/hr ONCE@1800 IV 08/16/20 18:00 08/17/20 17:59 UNV Potassium Chloride 40 meq/ Potassium Phosphate 20 mmol/ Magnesium Sulfate 11.1 meq/Calcium Gluconate 1389 mg/ Multivitamins 10 ml/Chromium/ Copper/Manganese/ Seleni/Zn 1 ml/ Amino Acids/ Dextrose 2,054.3317 ml @ 70 mls/hr ONCE@1800 IV 08/14/20 18:00 08/15/20 17:59 DC 08/14/20 18:16 Potassium Chloride 80 meq/ Potassium Phosphate 40 mmol/ Magnesium Sulfate 11.1 meq/Calcium Gluconate 1389 mg/ Amino Acids/ Dextrose 2,069.9983 ml @ 60 mls/hr ONCE@1800 IV 08/13/20 18:00 08/14/20 17:59 DC 08/13/20 18:13 Potassium Phosphate 30 mmol/ Calcium Gluconate 1389 mg/Amino Acids/Dextrose 2,023.89 ml @ 60 mls/hr ONCE@1800 IV 08/22/20 18:00 08/23/20 17:59 08/22/20 17:23 Potassium Phosphate 30 mmol/ Magnesium Sulfate 5.6 meq/Calcium Gluconate 1389 mg/ Multivitamins 10 ml/Chromium/ Copper/Manganese/ Seleni/Zn 1 ml/ Amino Acids/ Dextrose 2,036.29 ml @ 60 mls/hr ONCE@1800 IV 08/21/20 18:00 08/22/20 17:59 DC 08/21/20 17:11 Potassium Phosphate 30 mmol/ Magnesium Sulfate 11.1 meq/Calcium Gluconate 1389 mg/ Amino Acids/ Dextrose 2,026.665 ml @ 60 mls/hr ONCE@1800 IV 08/18/20 18:00 08/19/20 17:59 DC 08/18/20 17:41 Pravastatin Sodium (Pravachol) 40 mg QHS PO 08/06/20 21:00 08/10/20 16:11 DC 08/09/20 22:09 Scopolamine (Scopolamine) 1 mg Q72H TOP 08/18/20 20:00 08/21/20 20:48 Sodium Chloride 1,000 ml @ 60 mls/hr [id number] IV 08/07/20 16:40 08/09/20 07:20 DC 08/08/20 19:45 Sodium Chloride 1,000 ml @ 80 mls/hr [id number] IV 08/19/20 11:05 08/20/20 02:13 DC 08/20/20 00:17 Sodium Chloride (Saline Lock Flush) 10 ml ASDIRECTED PRN IV SEE LABEL COMMENTS 08/12/20 18:35 Sodium Chloride (Saline Lock Flush) 10 ml PICC IV 08/13/20 06:00 08/22/20 17:23 Tamsulosin HCl (Flomax) 0.4 mg QHS PO 08/06/20 21:00 08/10/20 16:11 DC 08/09/20 22:09 Vancomycin HCl 750 mg/IV Miscellaneous Supplies 1 each/ Sodium Chloride 275 ml @ 275 mls/hr Q12H IV 08/15/20 04:00 08/15/20 12:20 DC 08/15/20 04:48 Vancomycin HCl 1000 mg/IV Miscellaneous Supplies 1 each/ Sodium Chloride 270 ml @ 270 mls/hr Q12H IV 08/14/20 10:30 08/14/20 11:24 DC Allergies Coded Allergies: No Known Allergies (Unverified , 08/06/20) VS,Rizwanbonkaz, I+O VS, Fishbone, I+O Laboratory Tests 08/22/20 04:58 Vital Signs Date Time Temp Pulse Resp B/P (MAP) Pulse Ox O2 Delivery O2 Flow Rate FiO2 08/22/20 18:00 93 Nasal Cannula 6.0 4/8/21 15:33 98.4 93 18 136/77 (96) I&O- Last 24 Hours up to 6 AM 08/22/20 06:00 Intake Total 480 ml Output Total 1525 ml Balance -1045 ml GME ATTESTATION GME ATTESTATION My faculty preceptor for this patient encounter was physically present during the encounter and was fully available. All aspects of the patient interview, examination, medical decision making process, and medical care plan development were reviewed and approved by the faculty preceptor. The faculty preceptor is aware and concurs with the plan as stated in the body of this note and will attest to such by his/her cosignature. Attending Note Attending Note Dysphagia and Dependence on TPN CVA HTN CHF cont Lasix. TPN order written again today without Mg. PERLA VALLEJO MD Aug 22, 2020 19:14 RUTH NARAYAN MD Aug 22, 2020 23:01
[2020-08-22] MEDS: IPRATROPIUM 0.5MG/ALBUTEROL 2.5MG INH SOL UD 3ML (DUONEB) NEB SCH (20:00)
[2020-08-23] VITALS (20 sets, daily range): BP systolic 107–141; BP diastolic 53–71; O2SAT 93–98
[2020-08-23] MEDS: HumaLOG INSULIN (NovoLOG) PER UNIT SC SCH ×4 (00:21→18:10)
[2020-08-23] MEDS: IPRATROPIUM 0.5MG/ALBUTEROL 2.5MG INH SOL UD 3ML (DUONEB) NEB SCH ×7 (00:44→23:37)
[2020-08-23] MEDS: PIPERACILLIN/TAZOBACTAM SOD 3.375 GM in D5W MINI-BAG PLUS 50 ML IV SCH ×4 (02:11→20:17)
[2020-08-23 05:40] LABS: BASO # 0.1 10^3/uL (0.0-0.2); BASO % 0.5 % (0.0-1.0); EOS # 0.2 10^3/uL (0.0-0.5); EOS % 1.2 % (0.0-3.0); HEMATOCRIT 37.6 % (42.0-52.0); HEMOGLOBIN 12.2 g/dl (13.5-17.5); LYMPH # 0.9 10^3/uL (1.5-5.0); LYMPH % 5.9 % (24.0-44.0); MEAN CORPUSCULAR HEMOGLOBIN 30.5 pg (27.0-33.0); MEAN CORPUSCULAR HGB CONC 32.4 g/dl (32.0-36.5); MONO # 1.2 10^3/uL (0.0-0.8); MONO % 8.2 % (2.0-8.0); NEUTROPHILS # 12.4 10^3/uL (1.5-8.5); NEUTROPHILS % 83.8 % (36.0-66.0); PLATELET COUNT, AUTOMATED 463 10^3/uL (150-450); WHITE BLOOD COUNT 14.8 10^3/uL (4.0-10.0)
[2020-08-23] MEDS: SODIUM CHLORIDE 0.9% INJ 10 ML SYR IV SCH ×2 (06:00→18:11)
[2020-08-23 06:01] LABS: ALBUMIN 2.4 GM/DL (3.2-5.2); BILIRUBIN,TOTAL 0.7 MG/DL (0.2-1.0); CREATININE FOR GFR 1.39 MG/DL (0.70-1.30); GLOMERULAR FILTRATION RATE 52.2 (>35); MAGNESIUM LEVEL 2.4 MG/DL (1.8-2.4); TOTAL PROTEIN 6.3 GM/DL (6.4-8.2)
--- NOTE | 2020-08-23 07:58 | REP ---
INDICATION: pna. COMPARISON: Portable chest dated 08/19/2020. TECHNIQUE: Portable AP chest with the patient sitting. FINDINGS: The previous bibasilar densities have resolved. The lung sanabria are clear. The cardiac size is normal. The omaira, mediastinum, and skeletal structures are unremarkable. The right upper extremity PICC line remains in satisfactory position with its tip in the superior vena cava at the confluence of the innominate vein, unchanged. IMPRESSION: Essentially negative portable chest. The bibasilar densities have resolved. <Electronically signed by [place] > 08/23/20 0750
[2020-08-23] MEDS: ASPIRIN 81 MG CHEW TABLET PO SCH (09:00)
[2020-08-23] MEDS: FUROSEMIDE 20MG/2ML VIAL (J1940) IV SCH (10:22)
[2020-08-23] MEDS: ATORVASTATIN 20 MG TAB PO SCH (10:22)
[2020-08-23] MEDS: OMEPRAZOLE 20 MG CAP PO SCH (10:23)
[2020-08-23] MEDS: HEPARIN SOD (PORCINE) 5000UNITS/ML 1ML VIAL/SYRINGE SQ SCH ×2 (10:24→20:17)
[2020-08-23] MEDS: SODIUM CHLORIDE 0.9% INJ 10 ML SYR IV PRN (11:35)
--- NOTE | 2020-08-23 11:41 | IPNPDOC ---
Text Note Date of Service The patient was seen on 08/23/20. NOTE Subjective: I talked the patient today about the goal of treatment and I discu ssed PEG tube placement. Patient agreed to have PEG tube and start feeding. Objective: GENERAL APPEARANCE: ill looking male HEENT: no scleral icterus, no JVD, EOMI CARDIOVASCULAR: S1S2 LUNGS: Diminished lung sounds bilaterally, gurgling sounds over trachea ABDOMEN: soft & not tender w palpitation MUSCULOSKELETAL: no cyanosis, no swelling INTEGUMENT: no generalized pallor NEUROLOGICAL: Left hemiplegia, no nuchal rigidity Assessment and Plan Pt is an 80 year old male without medical history who presents with left sided weakness. Resolved in the ED. 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 Diet was modified to nectar thickening liquids No atrial fibrillation on telemetry or EKG Echo showed Normal global left ventricular systolic function with mild concentric left ventricular hypertrophy. There are some features of left ventricular diastolic dysfunction manifested by abnormal relaxation On 08/20/20 speech specialist evaluation: recommended rec diet (c/w lvl 1/pureed w NTL) Continue statin, aspirin Will continue TPN. I talked to Dr. Ivey and he'll proceed with PEG tube placement. Aspiration pneumonia/dysphagia X-ray showed Left lower lobe infiltrate consistent with pneumonia Speech eval daily Procalcitonin 0.09 on 08/15/20 Today patient has mild leukocytosis of 11.9. Patient completed the course of yuliya openem. Blood culture negative from 08/14/[address] chest showed Bibasilar infiltrates and small bilateral pleural effusions as described. Dependent atelectasis posteriorly in the upper lobes bilaterally. Patient has a high risk for aspiration Patient has increased leukocytosis on 08/19/20, could be secondary to reactive pneumonitis due to aspiration. X-ray was done and showed improved bibasilar atelectasis/infiltrate with minimal residual. I started Zosyn empirically day 4 Blood culture negative. Leukocytosis today improved DuoNeb [id number] Acute Diastolic CHF BNP elevated on 08/14/20 to 1459 Continue Lasix IV Hypernatremia Resolved Continue TPN without sodium Hypertension Labetalol IV every hour when necessary Continue amlodipine and lisinopril Hypokalemia Resolved Palliative care encounter Prognosis remains poor. Follow-up with palliative care Oropharyngeal dysfunction Pt presents with mild-moderate oropharyngeal phase dysphagia . Diet was modified to Puree solids and nectar thick liquids (no straws). Recommend: Meds crushed Recommend: Assist with feeding DVT ppx Heparin 5000 BID VS,Fishbone, I+O VS, Fishbone, I+O Laboratory Tests 08/23/20 04:43 Vital Signs Date Time Temp Pulse Resp B/P (MAP) Pulse Ox O2 Delivery O2 Flow Rate FiO2 08/23/20 10:23 85 140/65 08/23/20 08:00 98.5 20 98 High Flow Cannula 8.0 I&O- Last 24 Hours up to 6 AM 08/23/20 06:00 Intake Total 2060 ml Output Total 1650 ml Balance 410 ml VICKY ALEGRE DO Aug 23, 2020 11:41
--- NOTE | 2020-08-23 12:48 | IPNPDOC ---
Subjective General Date/Time Seen The patient was seen on 08/23/20 at 12:44. Subject Chief Complaint/History The patient is a 80-year-old male admitted with a reason for visit of TIA. SUBJECTIVE: Mr. Caballero was seen and examined at the bedside this morning. He has no complaints today. Continues to require assistance for meals given aspiration risk. Hospitalist spoke to patient/family regarding goals of care and patient requested PEG tube placement. Will continue TPN until feeding can be done via PEG tube. No complaints today and no issues reported overnight. OBJECTIVE: PHYSICAL EXAMINATION: VITAL SIGNS: see below GENERAL: Awake, does not appear in any acute distress, appears stated age HEENT: PERRL, EOMI, Oral mucous membranes are moist without lesions. NECK: Mildly elevated JVD is noted. No adenopathy is appreciated. No thyromegaly CHEST/LUNGS: Some faint crackles appreciated at the bases bilaterally. There is no subcutaneous air appreciated. There is no tenderness to the chest wall. HEART: Regular rate and rhythm. No murmurs, rubs, or gallops are appreciated. Distal pulses are 2+. No carotid bruits appreciated. ABDOMEN: Soft, nontender, and nondistended. Bowel sounds are positive. No organomegaly is appreciated. No masses are appreciated. There are no peritoneal signs. There is no [place] sign. EXTREMITIES: There is trace peripheral edema. There is no focal long bone tenderness or deformity. SKIN: The patients skin is warm and dry, without rashes or lesions. PSYCHIATRIC: Unable to assess due to patient's cognitive status NEUROLOGIC: The patient has speech deficits, left upper extremity is contracted, unable to assess full neurologic exam IMAGING: No new imaging LABS: See below ASSESSMENT: This is an 80-year-old male with history of hypertension who presented with left-sided weakness found to have acute CVA now complicated by dysphasia and resulting severe protein calorie malnutrition requiring IV TPN. PLAN: 1. Severe protein calorie malnutrition secondary to dysphagia: -Continue IV TPN, order placed for today. Encourage PO intake -Continue scopolamine for secretion management 2. History of congestive heart failure: -Continue daily Lasix IV 20 mg, additional 20mg IV given today -Renal function stable today, BUN/creatinine 39/1.39. Will continue to monitor. 3. History of aspiration pneumonitis: -WBC up to 14.8 today -Continue empiric IV Zosyn -Continue suctioning and oral care as prescribed by speech therapy 4. Hypertension: BP well-controlled at this time -Oral antihypertensives restarted 5. History of recent CVA: -Continue physical therapy, dysphagia treatment -Continue Lipitor and aspirin Disposition: Encourage safe oral intake of food and drink. Continue TPN Current Medications Current Medications Current Medications Medications (Trade) Dose Ordered Sig/Lloyd Route PRN Reason Start Time Stop Time Status Last Admin Dose Admin Acetaminophen (Tylenol Suppository) 650 mg Q4HP PRN [place] PAIN / FEVER 08/10/20 16:15 08/15/20 09:29 Albuterol/ Ipratropium (Duoneb (Ipr 0.5mg/Alb 2.5mg)) 3 ml RQ4H NEB 08/22/20 16:00 08/23/20 11:02 Amlodipine Besylate (Norvasc) 2.5 mg DAILY PO 08/09/20 09:00 08/10/20 07:23 DC 08/09/20 10:16 Amlodipine Besylate (Norvasc) 5 mg DAILY PO 08/07/20 09:00 08/07/20 18:40 DC 08/07/20 09:35 Amlodipine Besylate (Norvasc) 5 mg DAILY PO 08/10/20 09:00 08/10/20 16:11 DC 08/10/20 09:03 Amlodipine Besylate (Norvasc) 10 mg DAILY PO 08/17/20 09:00 08/20/20 12:25 DC 08/18/20 09:45 Amlodipine Besylate (Norvasc) 10 mg DAILY PO 08/20/20 09:00 08/23/20 10:23 Aspirin (Aspirin Chewable) 81 mg DAILY PO 08/21/20 09:00 08/23/20 09:00 Aspirin (Aspirin) 300 mg DAILY [place] 08/11/20 09:00 08/20/20 13:04 DC 08/20/20 09:49 Aspirin (Ecotrin) 81 mg DAILY PO 08/07/20 09:00 08/10/20 16:11 DC 08/10/20 09:03 Atorvastatin Calcium (Lipitor) 40 mg DAILY PO 08/17/20 09:00 08/23/20 10:22 Clopidogrel Bisulfate (PLAVix) 75 mg DAILY PO 08/07/20 09:00 08/10/20 16:11 DC 08/10/20 09:02 Dextrose/Sodium Chloride 1,000 ml @ 150 mls/hr Q6H40M IV 08/10/20 13:45 08/13/20 10:40 DC 08/13/20 09:39 Dextrose/Water 500 ml @ 50 mls/hr Q10H IV 08/14/20 11:35 08/15/20 15:09 DC 08/14/20 12:18 Docusate Sodium (Colace) 100 mg BID PO 08/08/20 09:00 08/10/20 13:55 DC 08/09/20 10:16 Fat Emulsion Intravenous 500 ml @ 20 mls/hr ONCE@1800 IV 08/23/20 18:00 08/24/20 17:59 Furosemide (LASIX injection) 20 mg DAILY IV 08/18/20 09:00 08/23/20 10:22 Heparin Sodium (Heparin (Flush)) 200 units ASDIRECTED PRN IV SEE LABEL COMMENTS 08/12/20 18:35 08/23/20 11:35 Heparin Sodium (Heparin (Flush)) 200 units PICC IV 08/13/20 06:00 08/22/20 17:23 Heparin Sodium (Porcine) (Heparin) 5,000 units BID SQ 08/13/20 21:00 08/23/20 10:24 Home Med (Med Rec Complete!) ASDIRECTED XX 08/06/20 17:50 08/06/20 17:49 DC Hydralazine HCl (Apresoline) 10 mg Q1HP PRN IV SBP > 170 08/13/20 07:50 08/13/20 10:23 DC Hydralazine HCl (Apresoline) 10 mg Q4HP PRN IV SBP > 170 08/10/20 18:15 08/13/20 07:48 DC 08/12/20 18:38 Hydralazine HCl (Apresoline) 10 mg Q6HP PRN IV SBP > 170 08/08/20 19:10 08/10/20 16:11 DC 08/10/20 14:53 Insulin Human Lispro (HumaLOG INSULIN) See Protocol Table Q6H [place] 08/13/20 18:00 08/14/20 12:01 DC 08/14/20 12:22 Insulin Human Lispro (HumaLOG INSULIN) See Protocol Table Q6H [place] 08/14/20 18:00 08/15/20 12:01 [place] 08/15/20 12:22 Insulin Human Lispro (HumaLOG INSULIN) See Protocol Table Q6H [place] 08/15/20 18:00 08/16/20 12:01 DE 08/16/20 12:21 Insulin Human Lispro (HumaLOG INSULIN) See Protocol Table Q6H [place] 08/16/20 18:00 08/17/20 12:01 DE 08/17/20 06:46 Insulin Human Lispro (HumaLOG INSULIN) See Protocol Table Q6H [place] 08/17/20 18:00 08/18/20 12:01 DE 08/18/20 11:50 Insulin Human Lispro (HumaLOG INSULIN) See Protocol Table Q6H [place] 08/18/20 18:00 08/19/20 12:01 DE 08/19/20 05:55 Insulin Human Lispro (HumaLOG INSULIN) See Protocol Table Q6H [place] 08/19/20 18:00 08/20/20 12:01 DE 08/20/20 12:29 Insulin Human Lispro (HumaLOG INSULIN) See Protocol Table Q6H [place] 08/21/20 18:00 08/22/20 12:01 DE 08/22/20 05:56 Insulin Human Lispro (HumaLOG INSULIN) See Protocol Table Q6H [place] 08/22/20 18:00 08/23/20 12:01 DE 08/23/20 06:40 Insulin Human Lispro (HumaLOG INSULIN) See Protocol Table Q6H [place] 08/23/20 18:00 08/24/20 12:01 Labetalol HCl (Normodyne, Trandate) 10 mg Q1H PRN IV SBP>170 08/13/20 10:20 08/17/20 01:44 Labetalol HCl (Normodyne, Trandate) 20 mg STAT STAT IV 08/11/20 07:53 08/11/20 07:54 DC 08/11/20 08:17 Lactated Ringer's 1,000 ml @ 150 mls/hr Q6H40M IV 08/09/20 07:20 08/10/20 13:55 DC 08/10/20 13:51 Lisinopril (Prinivil) 20 mg DAILY PO 08/17/20 09:00 08/20/20 12:31 DC 08/18/20 09:44 Lisinopril (Prinivil) 20 mg DAILY PO 08/20/20 09:00 08/23/20 10:22 Meropenem 1 gm/IV Miscellaneous Supplies 50 ml @ 100 mls/hr Q8H IV 08/10/20 14:00 08/17/20 11:06 DC 08/17/20 05:22 Metoprolol Tartrate (Lopressor) 2.5 mg STAT STAT IV 08/12/20 22:07 08/12/20 22:08 DC 08/12/20 22:27 Metoprolol Tartrate (Lopressor) 5 mg Q1HP PRN IV HR>110 08/13/20 10:20 Omeprazole (PriLOSEC) 40 mg DAILY PO 08/17/20 09:00 08/23/20 10:23 Ondansetron HCl (ZOFRAN INJection) 4 mg Q6HP PRN IV NAUSEA OR VOMITING 08/07/20 18:25 08/08/20 13:32 Oxymetazoline HCl (Afrin) 2 spray ASDIRECTED PRN NA SEE LABEL COMMENTS 08/15/20 09:00 Pantoprazole Sodium (Protonix) 40 mg DAILY IV 08/10/20 13:45 08/17/20 07:51 DC 08/16/20 10:20 Piperacillin Sod/ Tazobactam Sod 3.375 gm/Dextrose 50 ml @ 50 mls/hr Q6H IV 08/19/20 08:00 08/23/20 10:05 Potassium Chloride 10 meq/ IV Miscellaneous Supplies 100 ml @ 100 mls/hr Q1H IV 08/13/20 10:00 08/13/20 11:59 DC 08/13/20 12:22 Potassium Chloride 20 meq/ Potassium Phosphate 30 mmol/ Magnesium Sulfate 5.6 meq/Calcium Gluconate 1389 mg/ Multivitamins 10 ml/Chromium/ Copper/Manganese/ Seleni/Zn 1 ml/ Amino Acids/ Dextrose 2,046.29 ml @ 60 mls/hr ONCE@1800 IV 08/19/20 18:00 08/20/20 17:59 DC 08/19/20 19:22 Potassium Chloride 20 meq/ Potassium Phosphate 30 mmol/ Magnesium Sulfate 11.1 meq/Calcium Gluconate 1389 mg/ Amino Acids/ Dextrose 2,036.665 ml @ 60 mls/hr ONCE@1800 IV 08/17/20 18:00 08/18/20 17:59 DC 08/17/20 17:57 Potassium Chloride 40 meq/ Potassium Phosphate 20 mmol/ Magnesium Sulfate 9.52 meq/Calcium Gluconate 1190 mg/ Amino Acids/ Dextrose 2,040.9467 ml @ 70 mls/hr ONCE@1800 IV 08/15/20 18:00 08/16/20 17:59 DC 08/15/20 18:11 Potassium Chloride 40 meq/ Potassium Phosphate 20 mmol/ Magnesium Sulfate 9.52 meq/Calcium Gluconate 1190 mg/ Multivitamins 10 ml/Chromium/ Copper/Manganese/ Seleni/Zn 1 ml/ Amino Acids/ Dextrose 2,051.9467 ml @ 70 mls/hr ONCE@1800 IV 08/16/20 18:00 08/17/20 17:59 DC 08/16/20 18:40 Potassium Chloride 40 meq/ Potassium Phosphate 20 mmol/ Magnesium Sulfate 9.52 meq/Calcium Gluconate 1190 mg/ Multivitamins 10 ml/Chromium/ Copper/Manganese/ Seleni/Zn 1 ml/ Insulin Human Regular 10 units/ Amino Acids/ Dextrose 2,052.0467 ml @ 70 mls/hr ONCE@1800 IV 08/16/20 18:00 08/17/20 17:59 UNV Potassium Chloride 40 meq/ Potassium Phosphate 20 mmol/ Magnesium Sulfate 11.1 meq/Calcium Gluconate 1389 mg/ Multivitamins 10 ml/Chromium/ Copper/Manganese/ Seleni/Zn 1 ml/ Amino Acids/ Dextrose 2,054.3317 ml @ 70 mls/hr ONCE@1800 IV 08/14/20 18:00 08/15/20 17:59 DC 08/14/20 18:16 Potassium Chloride 80 meq/ Potassium Phosphate 40 mmol/ Magnesium Sulfate 11.1 meq/Calcium Gluconate 1389 mg/ Amino Acids/ Dextrose 2,069.9983 ml @ 60 mls/hr ONCE@1800 IV 08/13/20 18:00 08/14/20 17:59 DC 08/13/20 18:13 Potassium Phosphate 30 mmol/ Calcium Gluconate 1389 mg/ Multivitamins 10 ml/Chromium/ Copper/Manganese/ Seleni/Zn 1 ml/ Amino Acids/ Dextrose 2,034.89 ml @ 60 mls/hr ONCE@1800 IV 08/23/20 18:00 08/24/20 17:59 Potassium Phosphate 30 mmol/ Calcium Gluconate 1389 mg/Amino Acids/Dextrose 2,023.89 ml @ 60 mls/hr ONCE@1800 IV 08/22/20 18:00 08/23/20 17:59 08/22/20 17:23 Potassium Phosphate 30 mmol/ Magnesium Sulfate 5.6 meq/Calcium Gluconate 1389 mg/ Multivitamins 10 ml/Chromium/ Copper/Manganese/ Seleni/Zn 1 ml/ Amino Acids/ Dextrose 2,036.29 ml @ 60 mls/hr ONCE@1800 IV 08/21/20 18:00 08/22/20 17:59 DC 08/21/20 17:11 Potassium Phosphate 30 mmol/ Magnesium Sulfate 11.1 meq/Calcium Gluconate 1389 mg/ Amino Acids/ Dextrose 2,026.665 ml @ 60 mls/hr ONCE@1800 IV 08/18/20 18:00 08/19/20 17:59 DC 08/18/20 17:41 Pravastatin Sodium (Pravachol) 40 mg QHS PO 08/06/20 21:00 08/10/20 16:11 DC 08/09/20 22:09 Scopolamine (Scopolamine) 1 mg Q72H TOP 08/18/20 20:00 08/21/20 20:48 Sodium Chloride 1,000 ml @ 60 mls/hr [id number] IV 08/07/20 16:40 08/09/20 07:20 DC 08/08/20 19:45 Sodium Chloride 1,000 ml @ 80 mls/hr [id number] IV 08/19/20 11:05 08/20/20 02:13 DC 08/20/20 00:17 Sodium Chloride (Saline Lock Flush) 10 ml ASDIRECTED PRN IV SEE LABEL COMMENTS 08/12/20 18:35 08/23/20 11:35 Sodium Chloride (Saline Lock Flush) 10 ml PICC IV 08/13/20 06:00 08/22/20 17:23 Tamsulosin HCl (Flomax) 0.4 mg QHS PO 08/06/20 21:00 08/10/20 16:11 DC 08/09/20 22:09 Vancomycin HCl 750 mg/IV Miscellaneous Supplies 1 each/ Sodium Chloride 275 ml @ 275 mls/hr Q12H IV 08/15/20 04:00 08/15/20 12:20 DC 08/15/20 04:48 Vancomycin HCl 1000 mg/IV Miscellaneous Supplies 1 each/ Sodium Chloride 270 ml @ 270 mls/hr Q12H IV 08/14/20 10:30 08/14/20 11:24 DC Allergies Coded Allergies: No Known Allergies (Unverified , 08/06/20) VS,Fishbone, I+O VS, Fishbone, I+O Laboratory Tests 08/23/20 04:43 Vital Signs Date Time Temp Pulse Resp B/P (MAP) Pulse Ox O2 Delivery O2 Flow Rate FiO2 08/23/20 10:23 85 140/65 08/23/20 08:00 98.5 20 98 High Flow Cannula 8.0 I&O- Last 24 Hours up to 6 AM 08/23/20 05:59 Intake Total 1340 ml Output Total 1650 ml Balance -310 ml GME ATTESTATION GME ATTESTATION My faculty preceptor for this patient encounter was physically present during the encounter and was fully available. All aspects of the patient interview, examination, medical decision making process, and medical care plan development were reviewed and approved by the faculty preceptor. The faculty preceptor is aware and concurs with the plan as stated in the body of this note and will attest to such by his/her cosignature. Attending Note Attending Note CVA with dysphagia CHF HTN Hypernatremia Ordered TPN with Fat emulsion.Sodium free. Pt agreed for PEG tube placement. Extra dose Lasix in afternoon today. PERLA VALLEJO MD Aug 23, 2020 12:48 RUTH NARAYAN MD Aug 23, 2020 22:03
[2020-08-23] MEDS ORDERED: FUROSEMIDE 20MG/2ML VIAL (J1940) IV ONE (13:00)
[2020-08-23] MEDS ORDERED: [UNRECOGNIZED DRUG - OTHER] IV SCH ×5 (18:00)
[2020-08-23] MEDS ORDERED: POTASSIUM PHOSPHATE IV SCH ×5 (18:00)
[2020-08-23] MEDS ORDERED: CALCIUM GLUCONATE IV SCH ×5 (18:00)
[2020-08-23] MEDS ORDERED: FAT EMULSION IV 20% 500 ML IV SCH (18:00)
[2020-08-23 22:04] LABS: CLOSTRIDIUM DIFFICILE PCR NEGATIVE (NEGATIVE)
[2020-08-24] VITALS: BP 125/78
[2020-08-24] MEDS: HumaLOG INSULIN (NovoLOG) PER UNIT SC SCH ×4 (00:06→17:44)
[2020-08-24] MEDS: PIPERACILLIN/TAZOBACTAM SOD 3.375 GM in D5W MINI-BAG PLUS 50 ML IV SCH ×4 (02:16→20:05)
[2020-08-24 04:00] VITALS: BP 149/66
[2020-08-24 05:20] LABS: BASO # 0.1 10^3/uL (0.0-0.2); BASO % 0.7 % (0.0-1.0); EOS # 0.5 10^3/uL (0.0-0.5); HEMOGLOBIN 12.1 g/dl (13.5-17.5); LYMPH # 0.9 10^3/uL (1.5-5.0); LYMPH % 6.7 % (24.0-44.0); MEAN CORPUSCULAR HEMOGLOBIN 30.2 pg (27.0-33.0); MEAN CORPUSCULAR HGB CONC 31.8 g/dl (32.0-36.5); MEAN CORPUSCULAR VOLUME 94.8 fl (80.0-96.0); MONO # 1.1 10^3/uL (0.0-0.8); NEUTROPHILS # 10.5 10^3/uL (1.5-8.5); NEUTROPHILS % 80.1 % (36.0-66.0); PLATELET COUNT, AUTOMATED 432 10^3/uL (150-450); RED BLOOD COUNT 4.01 10^6/uL (4.30-6.10); WHITE BLOOD COUNT 13.1 10^3/uL (4.0-10.0)
[2020-08-24] MEDS: SODIUM CHLORIDE 0.9% INJ 10 ML SYR IV SCH ×2 (05:44→18:00)
[2020-08-24 05:56] LABS: ALBUMIN 2.3 GM/DL (3.2-5.2); BILIRUBIN,TOTAL 0.4 MG/DL (0.2-1.0); CALCIUM LEVEL 8.9 MG/DL (8.8-10.2); CREATININE FOR GFR 1.53 MG/DL (0.70-1.30); GLOMERULAR FILTRATION RATE 46.7 (>35); MAGNESIUM LEVEL 2.1 MG/DL (1.8-2.4); POTASSIUM SERUM 3.7 MEQ/L (3.5-5.1); TOTAL PROTEIN 6.1 GM/DL (6.4-8.2)
[2020-08-24] MEDS: IPRATROPIUM 0.5MG/ALBUTEROL 2.5MG INH SOL UD 3ML (DUONEB) NEB SCH ×4 (07:25→19:50)
[2020-08-24] MEDS ORDERED: KCL 10MEQ/100ML SWI (KRUN) 10 MEQ in IV 1 EA IV ONE (07:30)
[2020-08-24 08:00] VITALS: BP 124/58
[2020-08-24] MEDS: ATORVASTATIN 20 MG TAB PO SCH (08:07)
[2020-08-24] MEDS: OMEPRAZOLE 20 MG CAP PO SCH (08:07)
[2020-08-24] MEDS: FUROSEMIDE 20MG/2ML VIAL (J1940) IV SCH (08:07)
[2020-08-24] MEDS: ASPIRIN 81 MG CHEW TABLET PO SCH (08:07)
[2020-08-24] MEDS: HEPARIN SOD (PORCINE) 5000UNITS/ML 1ML VIAL/SYRINGE SQ SCH ×2 (08:07→20:05)
--- NOTE | 2020-08-24 11:28 | IPNPDOC ---
Text Note Date of Service The patient was seen on 08/24/20. NOTE Subjective: Patient continues to have multiple episodes of aspiration in the morning. No fever or chills overnight Objective: GENERAL APPEARANCE: ill looking male HEENT: no scleral icterus, no JVD, EOMI CARDIOVASCULAR: S1S2 LUNGS: Diminished lung sounds bilaterally, gurgling sounds over trachea ABDOMEN: soft & not tender w palpitation MUSCULOSKELETAL: no cyanosis, no swelling INTEGUMENT: no generalized pallor NEUROLOGICAL: Left hemiplegia, no nuchal rigidity Assessment and Plan Pt is an 80 year old male without medical history who presents with left sided weakness. Resolved in the ED. 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 Diet was modified to nectar thickening liquids No atrial fibrillation on telemetry or EKG Echo showed Normal global left ventricular systolic function with mild con centric left ventricular hypertrophy. There are some features of left ventricular diastolic dysfunction manifested by abnormal relaxation On 08/20/20 speech specialist evaluation: recommended rec diet (c/w lvl 1/pureed w NTL) Continue statin, aspirin Will continue TPN. Yesterday I talked to Dr. Ivey and he'll proceed with PEG tube placement. Nothing by mouth for now Aspiration pneumonia/dysphagia X-ray showed Left lower lobe infiltrate consistent with pneumonia Speech eval daily Procalcitonin 0.09 on 08/15/20 Today patient has mild leukocytosis of 11.9. Patient completed the course of meropenem. Blood culture negative from 08/14/[address] chest showed Bibasilar infiltrates and small bilateral pleural effusions as described. Dependent atelectasis posteriorly in the upper lobes bilaterally. Patient has a high risk for aspiration Patient has increased leukocytosis on 08/19/20, could be secondary to reactive pneumonitis due to aspiration. X-ray was done and showed improved bibasilar at electasis/infiltrate with minimal residual. I started Zosyn empirically day 5 Blood culture negative. Leukocytosis today improved DuoNeb [id number] Acute Diastolic CHF BNP elevated on 08/14/20 to 1459 Continue Lasix IV Hypernatremia Resolved Continue TPN without sodium Hypertension Labetalol IV every hour when necessary Continue amlodipine and lisinopril Hypokalemia Resolved Palliative care encounter Prognosis remains poor. Follow-up with palliative care Oropharyngeal dysfunction Pt presents with mild-moderate oropharyngeal phase dysphagia . Diet was modified to Puree solids and nectar thick liquids (no straws). Recommend: Meds crushed Recommend: Assist with feeding DVT ppx Heparin 5000 BID VS,Fishbone, I+O VS, Fishbone, I+O Laboratory Tests 08/24/20 04:50 Vital Signs Date Time Temp Pulse Resp B/P (MAP) Pulse Ox O2 Delivery O2 Flow Rate FiO2 08/24/20 08:07 61 149/66 08/24/20 08:00 98.0 18 98 High Flow Cannula 8.0 I&O- Last 24 Hours up to 6 AM 08/24/20 06:00 Intake Total 240 ml Output Total 950 ml Balance -710 ml VICKY ALEGRE DO Aug 24, 2020 11:28
--- NOTE | 2020-08-24 11:31 | IPNPDOC ---
Subjective General Date/Time Seen The patient was seen on 08/24/20 at 11:23. Subject Chief Complaint/History The patient is a 80-year-old male admitted with a reason for visit of TIA. SUBJECTIVE: Mr. Caballero was seen and examined at the bedside this morning. He is sleeping peacefully. Per hospitalist, plan for PEG tube placement in the next few days. We will continue to order TPN until that is done. Renal function is somewhat worse this morning. No issues reported overnight. Patient has no complaints this morning. OBJECTIVE: PHYSICAL EXAMINATION: VITAL SIGNS: see below GENERAL: Awake, does not appear in any acute distress, appears stated age HEENT: PERRL, EOMI, Oral mucous membranes are moist without lesions. NECK: No obvious JVD is noted. No adenopathy is appreciated. No thyromegaly CHEST/LUNGS: Some faint crackles appreciated at the bases bilaterally. There is no subcutaneous air appreciated. There is no tenderness to the chest wall. HEART: Regular rate and rhythm. No murmurs, rubs, or gallops are appreciated. Distal pulses are 2+. No carotid bruits appreciated. ABDOMEN: Soft, nontender, and nondistended. Bowel sounds are positive. No organomegaly is appreciated. No masses are appreciated. There are no peritoneal signs. There is no Laie sign. EXTREMITIES: There is trace peripheral edema. There is no focal long bone tenderness or deformity. SKIN: The patients skin is warm and dry, without rashes or lesions. PSYCHIATRIC: Unable to assess due to patient's cognitive status NEUROLOGIC: The patient has speech deficits, left upper extremity is contracted, unable to assess full neurologic exam IMAGING: No new imaging LABS: See below ASSESSMENT: This is an 80-year-old male with history of hypertension who presented with left-sided weakness found to have acute CVA now complicated by dysphasia and resulting severe protein calorie malnutrition requiring IV TPN. PLAN: 1. Severe protein calorie malnutrition secondary to dysphagia: -Continue IV TPN, order placed for today. Due to transaminitis today, ordered without fat emulsion -Continue scopolamine for secretion management 2. History of congestive heart failure: -Holding Lasix for at least 48 hours due to worsening renal function, patient does appear dry on exam 3. History of aspiration pneumonitis: -WBC found to be 13.1 today -Continue empiric IV Zosyn -Continue suctioning and oral care as prescribed by speech therapy 4. Hypertension: BP well-controlled at this time -Oral antihypertensives restarted 5. History of recent CVA: -Continue physical therapy, dysphagia treatment -Continue Lipitor and aspirin Disposition: Encourage safe oral intake of food and drink. Continue TPN, plan for PEG tube in near future Current Medications Current Medications Current Medications Medications (Trade) Dose Ordered Sig/Lloyd Route PRN Reason Start Time Stop Time Status Last Admin Dose Admin Acetaminophen (Tylenol Suppository) 650 mg Q4HP PRN PA PAIN / FEVER 08/10/20 16:15 08/15/20 09:29 Albuterol/ Ipratropium (Duoneb (Ipr 0.5mg/Alb 2.5mg)) 3 ml RQ4H NEB 08/22/20 16:00 08/24/20 07:25 Amlodipine Besylate (Norvasc) 2.5 mg DAILY PO 08/09/20 09:00 08/10/20 07:23 DC 08/09/20 10:16 Amlodipine Besylate (Norvasc) 5 mg DAILY PO 08/07/20 09:00 08/07/20 18:40 DC 08/07/20 09:35 Amlodipine Besylate (Norvasc) 5 mg DAILY PO 08/10/20 09:00 08/10/20 16:11 DC 08/10/20 09:03 Amlodipine Besylate (Norvasc) 10 mg DAILY PO 08/17/20 09:00 08/20/20 12:25 DC 08/18/20 09:45 Amlodipine Besylate (Norvasc) 10 mg DAILY PO 08/20/20 09:00 08/24/20 08:07 Aspirin (Aspirin Chewable) 81 mg DAILY PO 08/21/20 09:00 08/24/20 08:07 Aspirin (Aspirin) 300 mg DAILY PA 08/11/20 09:00 08/20/20 13:04 DC 08/20/20 09:49 Aspirin (Ecotrin) 81 mg DAILY PO 08/07/20 09:00 08/10/20 16:11 DC 08/10/20 09:03 Atorvastatin Calcium (Lipitor) 40 mg DAILY PO 08/17/20 09:00 08/24/20 08:07 Clopidogrel Bisulfate (PLAVix) 75 mg DAILY PO 08/07/20 09:00 08/10/20 16:11 DC 08/10/20 09:02 Dextrose/Sodium Chloride 1,000 ml @ 150 mls/hr Q6H40M IV 08/10/20 13:45 08/13/20 10:40 DC 08/13/20 09:39 Dextrose/Water 500 ml @ 50 mls/hr Q10H IV 08/14/20 11:35 08/15/20 15:09 DC 08/14/20 12:18 Docusate Sodium (Colace) 100 mg BID PO 08/08/20 09:00 08/10/20 13:55 DC 08/09/20 10:16 Fat Emulsion Intravenous 500 ml @ 20 mls/hr ONCE@1800 IV 08/24/20 18:00 08/24/20 11:19 DC Fat Emulsion Intravenous 500 ml @ 20 mls/hr ONCE@1800 IV 08/23/20 18:00 08/24/20 17:59 08/23/20 18:11 Furosemide (LASIX injection) 20 mg DAILY IV 08/18/20 09:00 Hold 08/24/20 08:07 Heparin Sodium (Heparin (Flush)) 200 units ASDIRECTED PRN IV SEE LABEL COMMENTS 08/12/20 18:35 08/23/20 11:35 Heparin Sodium (Heparin (Flush)) 200 units PICC IV 08/13/20 06:00 08/24/20 05:44 Heparin Sodium (Porcine) (Heparin) 5,000 units BID SQ 08/13/20 21:00 08/24/20 08:07 Home Med (Med Rec Complete!) ASDIRECTED XX 08/06/20 17:50 08/06/20 17:49 DC Hydralazine HCl (Apresoline) 10 mg Q1HP PRN IV SBP > 170 08/13/20 07:50 08/13/20 10:23 DC Hydralazine HCl (Apresoline) 10 mg Q4HP PRN IV SBP > 170 08/10/20 18:15 08/13/20 07:48 DC 08/12/20 18:38 Hydralazine HCl (Apresoline) 10 mg Q6HP PRN IV SBP > 170 08/08/20 19:10 08/10/20 16:11 DC 08/10/20 14:53 Insulin Human Lispro (HumaLOG INSULIN) See Protocol Table Q6H SC 08/13/20 18:00 08/14/20 12:01 DC 08/14/20 12:22 Insulin Human Lispro (HumaLOG INSULIN) See Protocol Table Q6H NM 08/14/20 18:00 08/15/20 12:01 DC 08/15/20 12:22 Insulin Human Lispro (HumaLOG INSULIN) See Protocol Table Q6H NM 08/15/20 18:00 08/16/20 12:01 DC 08/16/20 12:21 Insulin Human Lispro (HumaLOG INSULIN) See Protocol Table Q6H NM 08/24/20 18:00 08/25/20 12:01 Insulin Human Lispro (HumaLOG INSULIN) See Protocol Table Q6H NM 08/16/20 18:00 08/17/20 12:01 DC 08/17/20 06:46 Insulin Human Lispro (HumaLOG INSULIN) See Protocol Table Q6H NM 08/17/20 18:00 08/18/20 12:01 DC 08/18/20 11:50 Insulin Human Lispro (HumaLOG INSULIN) See Protocol Table Q6H NM 08/18/20 18:00 08/19/20 12:01 DC 08/19/20 05:55 Insulin Human Lispro (HumaLOG INSULIN) See Protocol Table Q6H NM 08/19/20 18:00 08/20/20 12:01 DC 08/20/20 12:29 Insulin Human Lispro (HumaLOG INSULIN) See Protocol Table Q6H NM 08/21/20 18:00 08/22/20 12:01 DC 08/22/20 05:56 Insulin Human Lispro (HumaLOG INSULIN) See Protocol Table Q6H NM 08/22/20 18:00 08/23/20 12:01 DC 08/23/20 13:03 Insulin Human Lispro (HumaLOG INSULIN) See Protocol Table Q6H NM 08/23/20 18:00 08/24/20 12:01 08/24/20 05:44 Labetalol HCl (Normodyne, Trandate) 10 mg Q1H PRN IV SBP>170 08/13/20 10:20 08/17/20 01:44 Labetalol HCl (Normodyne, Trandate) 20 mg STAT STAT IV 08/11/20 07:53 08/11/20 07:54 DC 08/11/20 08:17 Lactated Ringer's 1,000 ml @ 150 mls/hr Q6H40M IV 08/09/20 07:20 08/10/20 13:55 DC 08/10/20 13:51 Lisinopril (Prinivil) 20 mg DAILY PO 08/17/20 09:00 08/20/20 12:31 DC 08/18/20 09:44 Lisinopril (Prinivil) 20 mg DAILY PO 08/20/20 09:00 08/24/20 08:08 Meropenem 1 gm/IV Miscellaneous Supplies 50 ml @ 100 mls/hr Q8H IV 08/10/20 14:00 08/17/20 11:06 DC 08/17/20 05:22 Metoprolol Tartrate (Lopressor) 2.5 mg STAT STAT IV 08/12/20 22:07 08/12/20 22:08 DC 08/12/20 22:27 Metoprolol Tartrate (Lopressor) 5 mg Q1HP PRN IV HR>110 08/13/20 10:20 Omeprazole (PriLOSEC) 40 mg DAILY PO 08/17/20 09:00 08/24/20 08:07 Ondansetron HCl (ZOFRAN INJection) 4 mg Q6HP PRN IV NAUSEA OR VOMITING 08/07/20 18:25 08/08/20 13:32 Oxymetazoline HCl (Afrin) 2 spray ASDIRECTED PRN NA SEE LABEL COMMENTS 08/15/20 09:00 Pantoprazole Sodium (Protonix) 40 mg DAILY IV 08/10/20 13:45 08/17/20 07:51 DC 08/16/20 10:20 Piperacillin Sod/ Tazobactam Sod 3.375 gm/Dextrose 50 ml @ 50 mls/hr Q6H IV 08/19/20 08:00 08/24/20 08:08 Potassium Chloride 10 meq/ IV Miscellaneous Supplies 100 ml @ 100 mls/hr Q1H IV 08/13/20 10:00 08/13/20 11:59 DC 08/13/20 12:22 Potassium Chloride 20 meq/ Potassium Phosphate 30 mmol/ Magnesium Sulfate 5.6 meq/Calcium Gluconate 1389 mg/ Multivitamins 10 ml/Chromium/ Copper/Manganese/ Seleni/Zn 1 ml/ Amino Acids/ Dextrose 2,046.29 ml @ 60 mls/hr ONCE@1800 IV 08/19/20 18:00 08/20/20 17:59 DC 08/19/20 19:22 Potassium Chloride 20 meq/ Potassium Phosphate 30 mmol/ Magnesium Sulfate 11.1 meq/Calcium Gluconate 1389 mg/ Amino Acids/ Dextrose 2,036.665 ml @ 60 mls/hr ONCE@1800 IV 08/17/20 18:00 08/18/20 17:59 DC 08/17/20 17:57 Potassium Chloride 40 meq/ Potassium Phosphate 20 mmol/ Magnesium Sulfate 9.52 meq/Calcium Gluconate 1190 mg/ Amino Acids/ Dextrose 2,040.9467 ml @ 70 mls/hr ONCE@1800 IV 08/15/20 18:00 08/16/20 17:59 DC 08/15/20 18:11 Potassium Chloride 40 meq/ Potassium Phosphate 20 mmol/ Magnesium Sulfate 9.52 meq/Calcium Gluconate 1190 mg/ Multivitamins 10 ml/Chromium/ Copper/Manganese/ Seleni/Zn 1 ml/ Amino Acids/ Dextrose 2,051.9467 ml @ 70 mls/hr ONCE@1800 IV 08/16/20 18:00 08/17/20 17:59 DC 08/16/20 18:40 Potassium Chloride 40 meq/ Potassium Phosphate 20 mmol/ Magnesium Sulfate 9.52 meq/Calcium Gluconate 1190 mg/ Multivitamins 10 ml/Chromium/ Copper/Manganese/ Seleni/Zn 1 ml/ Insulin Human Regular 10 units/ Amino Acids/ Dextrose 2,052.0467 ml @ 70 mls/hr ONCE@1800 IV 08/16/20 18:00 08/17/20 17:59 UNV Potassium Chloride 40 meq/ Potassium Phosphate 20 mmol/ Magnesium Sulfate 11.1 meq/Calcium Gluconate 1389 mg/ Multivitamins 10 ml/Chromium/ Copper/Manganese/ Seleni/Zn 1 ml/ Amino Acids/ Dextrose 2,054.3317 ml @ 70 mls/hr ONCE@1800 IV 08/14/20 18:00 08/15/20 17:59 DC 08/14/20 18:16 Potassium Chloride 80 meq/ Potassium Phosphate 40 mmol/ Magnesium Sulfate 11.1 meq/Calcium Gluconate 1389 mg/ Amino Acids/ Dextrose 2,069.9983 ml @ 60 mls/hr ONCE@1800 IV 08/13/20 18:00 08/14/20 17:59 DC 08/13/20 18:13 Potassium Phosphate 30 mmol/ Calcium Gluconate 1389 mg/ Multivitamins 10 ml/Chromium/ Copper/Manganese/ Seleni/Zn 1 ml/ Amino Acids/ Dextrose 2,034.89 ml @ 60 mls/hr ONCE@1800 IV 08/23/20 18:00 08/24/20 17:59 08/23/20 18:12 Potassium Phosphate 30 mmol/ Calcium Gluconate 1389 mg/Amino Acids/Dextrose 2,023.89 ml @ 60 mls/hr ONCE@1800 IV 08/24/20 18:00 08/25/20 17:59 Potassium Phosphate 30 mmol/ Calcium Gluconate 1389 mg/Amino Acids/Dextrose 2,023.89 ml @ 60 mls/hr ONCE@1800 IV 08/22/20 18:00 08/23/20 17:59 DC 08/22/20 17:23 Potassium Phosphate 30 mmol/ Magnesium Sulfate 5.6 meq/Calcium Gluconate 1389 mg/ Multivitamins 10 ml/Chromium/ Copper/Manganese/ Seleni/Zn 1 ml/ Amino Acids/ Dextrose 2,036.29 ml @ 60 mls/hr ONCE@1800 IV 08/21/20 18:00 08/22/20 17:59 DC 08/21/20 17:11 Potassium Phosphate 30 mmol/ Magnesium Sulfate 11.1 meq/Calcium Gluconate 1389 mg/ Amino Acids/ Dextrose 2,026.665 ml @ 60 mls/hr ONCE@1800 IV 08/18/20 18:00 08/19/20 17:59 DC 08/18/20 17:41 Pravastatin Sodium (Pravachol) 40 mg QHS PO 08/06/20 21:00 08/10/20 16:11 DC 08/09/20 22:09 Scopolamine (Scopolamine) 1 mg Q72H TOP 08/18/20 20:00 08/21/20 20:48 Sodium Chloride 1,000 ml @ 60 mls/hr [id number] IV 08/07/20 16:40 08/09/20 07:20 DC 08/08/20 19:45 Sodium Chloride 1,000 ml @ 80 mls/hr [id number] IV 08/19/20 11:05 08/20/20 02:13 DC 08/20/20 00:17 Sodium Chloride (Saline Lock Flush) 10 ml ASDIRECTED PRN IV SEE LABEL COMMENTS 08/12/20 18:35 08/23/20 11:35 Sodium Chloride (Saline Lock Flush) 10 ml PICC IV 08/13/20 06:00 08/24/20 05:44 Tamsulosin HCl (Flomax) 0.4 mg QHS PO 08/06/20 21:00 08/10/20 16:11 DC 08/09/20 22:09 Vancomycin HCl 750 mg/IV Miscellaneous Supplies 1 each/ Sodium Chloride 275 ml @ 275 mls/hr Q12H IV 08/15/20 04:00 08/15/20 12:20 DC 08/15/20 04:48 Vancomycin HCl 1000 mg/IV Miscellaneous Supplies 1 each/ Sodium Chloride 270 ml @ 270 mls/hr Q12H IV 08/14/20 10:30 08/14/20 11:24 DC Allergies Coded Allergies: No Known Allergies (Unverified , 08/06/20) VS,Fishbone, I+O VS, Fishbone, I+O Laboratory Tests 08/24/20 04:50 Vital Signs Date Time Temp Pulse Resp B/P (MAP) Pulse Ox O2 Delivery O2 Flow Rate FiO2 08/24/20 08:07 61 149/66 08/24/20 08:00 98.0 18 98 High Flow Cannula 8.0 I&O- Last 24 Hours up to 6 AM 08/24/20 06:00 Intake Total 240 ml Output Total 950 ml Balance -710 ml GME ATTESTATION GME ATTESTATION My faculty preceptor for this patient encounter was physically present during the encounter and was fully available. All aspects of the patient interview, examination, medical decision making process, and medical care plan development were reviewed and approved by the faculty preceptor. The faculty preceptor is aware and concurs with the plan as stated in the body of this note and will attest to such by his/her cosignature. PERLA VALLEJO MD Aug 24, 2020 11:25
[2020-08-24 12:00] VITALS: BP 123/57
[2020-08-24] MEDS ORDERED: POTASSIUM PHOSPHATE IV SCH (18:00)
[2020-08-24] MEDS ORDERED: FAT EMULSION IV 20% 500 ML IV SCH (18:00)
[2020-08-24] MEDS ORDERED: CALCIUM GLUCONATE IV SCH (18:00)
[2020-08-24] MEDS ORDERED: [UNRECOGNIZED DRUG - OTHER] IV SCH (18:00)
[2020-08-24 20:00] VITALS: BP 131/76
[2020-08-24] MEDS: SCOPOLAMINE 1MG TRANSDERMAL PATCH TOP SCH (20:05)
--- NOTE | 2020-08-24 22:34 | CR ---
CONSULTATION DATE: 08/24/2020 HISTORY OF PRESENT ILLNESS: Patient is an 80-year-old man who was admitted on August 06, 2020 with neurologic changes with weakness of his left side. Initially, his neurologic deficit cleared but then recurred and he was diagnosed with a stroke. He has had swallowing difficulties because of this. ALLERGIES: Patient has no known drug allergies. MEDICATIONS: Patient had only been on a small dose of Norvasc at the time of admission. He is currently on several medications for his blood pressure and also on some sliding scale insulin and some nebulizer treatments. SURGICAL HISTORY: Patient denies any abdominal surgery of any kind. MEDICAL HISTORY: He reports a history of: 1. Hypertension. 2. He has had some prostate issues. 3. He is a former drinker and smoker. FAMILY HISTORY: Noncontributory. REVIEW OF SYSTEMS: No history of chest pains or palpitations or deep venous thrombosis (DVT) or pulmonary embolus. He has had no acute respiratory issues. He has no history of prior stroke. PHYSICAL EXAMINATION: Patient is a somewhat frail-appearing elderly man lying quietly in the hospital bed. His left hand is splinted. HEART EXAM: Reveals a regular rhythm and he is not tachycardic. LUNGS: Bilateral breath sounds. ABDOMEN: Soft with bowel sounds present. There is no tenderness and no mass appreciated. He has no evident scars. IMPRESSION: 1. Dysphagia status post cerebrovascular accident. 2. Hypertension. 3. Congestive heart failure. 4. Benign prostatic hyperplasia. PLAN: Patient was counseled regarding placement of percutaneous gastrostomy. I anticipate that the operating room will be pretty much booked up on Wednesday, August 25, 2020, with orthopedic cases. I am therefore unlikely able to get this done on the . I am looking toward Wednesday and Wednesday, August 26 and to see if we can find time to proceed with a percutaneous endoscopic gastrostomy (PEG) tube placement. I will try to get back to the patient as soon as possible about the anticipated date. WAYNE
[2020-08-25] VITALS (7 sets, daily range): BP systolic 114–151; BP diastolic 64–70; O2SAT 98
[2020-08-25] MEDS: IPRATROPIUM 0.5MG/ALBUTEROL 2.5MG INH SOL UD 3ML (DUONEB) NEB SCH ×7 (00:05→23:58)
[2020-08-25] MEDS: PIPERACILLIN/TAZOBACTAM SOD 3.375 GM in D5W MINI-BAG PLUS 50 ML IV SCH ×4 (00:21→20:22)
[2020-08-25] MEDS: HumaLOG INSULIN (NovoLOG) PER UNIT SC SCH ×4 (00:22→18:00)
[2020-08-25 05:32] LABS: BASO # 0.1 10^3/uL (0.0-0.2); BASO % 0.7 % (0.0-1.0); EOS # 0.5 10^3/uL (0.0-0.5); EOS % 3.9 % (0.0-3.0); HEMATOCRIT 39.9 % (42.0-52.0); HEMOGLOBIN 12.6 g/dl (13.5-17.5); LYMPH # 0.8 10^3/uL (1.5-5.0); LYMPH % 6.3 % (24.0-44.0); MEAN CORPUSCULAR HEMOGLOBIN 30.3 pg (27.0-33.0); MEAN CORPUSCULAR HGB CONC 31.6 g/dl (32.0-36.5); MEAN CORPUSCULAR VOLUME 95.9 fl (80.0-96.0); MONO # 0.9 10^3/uL (0.0-0.8); MONO % 7.1 % (2.0-8.0); NEUTROPHILS % 81.5 % (36.0-66.0); PLATELET COUNT, AUTOMATED 458 10^3/uL (150-450); RED BLOOD COUNT 4.16 10^6/uL (4.30-6.10); WHITE BLOOD COUNT 12.3 10^3/uL (4.0-10.0)
[2020-08-25] MEDS: SODIUM CHLORIDE 0.9% INJ 10 ML SYR IV SCH ×2 (05:48→18:06)
[2020-08-25 05:57] LABS: ALBUMIN 2.3 GM/DL (3.2-5.2); BILIRUBIN,TOTAL 0.4 MG/DL (0.2-1.0); CALCIUM LEVEL 9.9 MG/DL (8.8-10.2); CREATININE FOR GFR 1.29 MG/DL (0.70-1.30); GLOMERULAR FILTRATION RATE 56.9 (>35); MAGNESIUM LEVEL 2.1 MG/DL (1.8-2.4); POTASSIUM SERUM 3.7 MEQ/L (3.5-5.1); TOTAL PROTEIN 7.2 GM/DL (6.4-8.2)
[2020-08-25 09:25] LABS: PHOSPHORUS LEVEL 3.3 MG/DL (2.5-4.9)
[2020-08-25] MEDS: OMEPRAZOLE 20 MG CAP PO SCH (09:26)
[2020-08-25] MEDS: ATORVASTATIN 20 MG TAB PO SCH (09:26)
[2020-08-25] MEDS: ASPIRIN 81 MG CHEW TABLET PO SCH (09:26)
[2020-08-25] MEDS: HEPARIN SOD (PORCINE) 5000UNITS/ML 1ML VIAL/SYRINGE SQ SCH ×2 (09:26→20:22)
--- NOTE | 2020-08-25 11:32 | IPNPDOC ---
Text Note Date of Service The patient was seen on 08/25/20. NOTE Subjective: Patient continues to have aspiration in the morning. Patient denied fever, chills, nausea, vomiting. Diarrhea resolved Objective: GENERAL APPEARANCE: ill looking male HEENT: no scleral icterus, no JVD, EOMI CARDIOVASCULAR: S1S2 LUNGS: Diminished lung sounds bilaterally, gurgling sounds over trachea ABDOMEN: soft & not tender w palpitation MUSCULOSKELETAL: no cyanosis, no swelling INTEGUMENT: no generalized pallor NEUROLOGICAL: Left hemiplegia, no nuchal rigidity Assessment and Plan Pt is an 80 year old male without medical history who presents with left sided weakness. Resolved in the ED. 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 Diet was modified to nectar thickening liquids No atrial fibrillation on telemetry or EKG Echo showed Normal global left ventricular systolic function with mild concentric left ventricular hypertrophy. There are some features of left ventricular diastolic dysfunction manifested by abnormal relaxation On 08/20/20 speech specialist evaluation: recommended rec diet (c/w lvl 1/pureed w NTL) Continue statin, aspirin continue TPN. Await PEG tube placement. Nothing by mouth for now Aspiration pneumonia/dysphagia X-ray showed Left lower lobe infiltrate consistent with pneumonia Speech eval daily Procalcitonin 0.09 on 08/15/20 Today patient has mild leukocytosis of 11.9. Patient completed the course of meropenem. Blood culture negative from 08/14/[address] chest showed Bibasilar infiltrates and small bilateral pleural effusions as described. Dependent atelectasis posteriorly in the upper lobes bilaterally. Patient has a high risk for aspiration Patient has increased leukocytosis on 08/19/20, could be secondary to reactive pneumonitis due to aspiration. X-ray was done and showed improved bibasilar atelectasis/infiltrate with minimal residual. I started Zosyn empirically day 6 Blood culture negative. Leukocytosis 12.3 DuoNeb [id number] Acute Diastolic CHF BNP elevated on 08/14/20 to 1459 Continue Lasix IV Hypernatremia Resolved Continue TPN without sodium Hypertension Labetalol IV every hour when necessary Continue amlodipine and lisinopril Hypokalemia Resolved Palliative care encounter Prognosis remains poor. Follow-up with palliative care Oropharyngeal dysfunction Pt presents with mild-moderate oropharyngeal phase dysphagia . Diet was modified to Puree solids and nectar thick liquids (no straws). Recommend: Meds crushed Recommend: Assist with feeding Will keep patient nothing by mouth for today due to possible PEG tube placement DVT ppx Heparin 5000 BID VS,Fishbone, I+O VS, Fishbone, I+O Laboratory Tests 08/25/20 05:06 Vital Signs Date Time Temp Pulse Resp B/P (MAP) Pulse Ox O2 Delivery O2 Flow Rate FiO2 08/25/20 09:26 90 131/64 08/25/20 07:29 98.2 20 96 High Flow Cannula 6.0 I&O- Last 24 Hours up to 6 AM 08/25/20 06:00 Intake Total 120 ml Output Total 1050 ml Balance -930 ml VICKY ALEGRE DO Aug 25, 2020 11:32
[2020-08-25] MEDS ORDERED: [UNRECOGNIZED DRUG - OTHER] IV SCH ×4 (18:00)
[2020-08-25] MEDS ORDERED: POTASSIUM PHOSPHATE IV SCH ×4 (18:00)
[2020-08-25] MEDS ORDERED: MAGNESIUM SULFATE IV SCH ×4 (18:00)
--- NOTE | 2020-08-25 20:08 | IPN ---
PROGRESS NOTE DATE: 08/25/2020 SUBJECTIVE: Patient was seen and examined at the bedside today morning. He continues to be on total parenteral nutrition (TPN). I was told that he is supposed to get a percutaneous endoscopic gastrostomy (PEG) tube either today or tomorrow. OBJECTIVE: Vital signs: Temperature is 97.6 degrees Fahrenheit, blood pressure 145/65, pulse is 88, respiratory rate of 18, saturating 95% on nasal cannula at 6 liters. Intake and output: Urine output recorded is 1.1 liters yesterday and 1.1 liters so far today since overnight. Weight in the bed scale is 71.8 kg. PHYSICAL EXAMINATION: General: Patient is awake, alert, oriented times two, laying in bed, no apparent distress. Head and neck exam: Extraocular muscles intact. Pupils equally round and reactive to light. Mucous membranes are moist. Neck is supple. There is no significant jugular venous distension (JVD). Cardiovascular: S1, S2, regular rate. No edema of the bilateral lower extremities. Respiratory: Chest is clear to auscultation bilaterally. Bilateral equal air entry. No rales or rhonchi. Abdomen: Soft, positive bowel sounds, nontender, no organomegaly. Genitourinary: Bladder is not palpable. He has an indwelling Bautista catheter. Musculoskeletal: No clubbing or cyanosis. Pulses are 2+. Central nervous system ([employer]): No focal deficit. Power is 5/5 in all extremities. LABORATORY REVIEW: CBC showed WBC 12.3, hemoglobin 12.6, platelets are 458. BMP showed sodium 142, potassium 3.7, chloride 112, bicarbonate 24, BUN 41, creatinine is 1.2, it was 1.5 yesterday, albumin is 2.3. CURRENT INPATIENT MEDICATIONS: Patient's medications were all reviewed by myself. He continues to be on IV Zosyn. No other significant change in the medications today as compared with yesterday. ASSESSMENT AND PLAN: 1. Acute kidney injury superimposed on chronic kidney disease. Most likely it was secondary to volume depletion. His diuretics were held and creatinine is improving back to baseline. 2. Dysphagia and protein-calorie malnutrition. New order of total parenteral nutrition (TPN) was written today without fat emulsion. Patient is expected to get percutaneous endoscopic gastrostomy (PEG) tube placement within the next 24-48 hours. 3. History of congestive heart failure. Diuretics are on hold because of bump in the creatinine. Lasix will be started tomorrow morning. 4. Aspiration pneumonitis. Continue IV Zosyn. 5. Hypertension. Blood pressure is well controlled. Continue current antihypertensive regimen.
[2020-08-26] VITALS (15 sets, daily range): BP systolic 116–144; BP diastolic 65–80; O2SAT 93–97
[2020-08-26] MEDS: PIPERACILLIN/TAZOBACTAM SOD 3.375 GM in D5W MINI-BAG PLUS 50 ML IV SCH ×2 (01:47→08:43)
[2020-08-26] MEDS: HumaLOG INSULIN (NovoLOG) PER UNIT SC SCH ×4 (01:47→17:15)
[2020-08-26] MEDS: IPRATROPIUM 0.5MG/ALBUTEROL 2.5MG INH SOL UD 3ML (DUONEB) NEB SCH ×6 (03:00→23:36)
[2020-08-26 05:23] LABS: BASO # 0.1 10^3/uL (0.0-0.2); BASO % 0.6 % (0.0-1.0); EOS # 0.4 10^3/uL (0.0-0.5); EOS % 3.9 % (0.0-3.0); HEMOGLOBIN 11.8 g/dl (13.5-17.5); LYMPH # 0.8 10^3/uL (1.5-5.0); LYMPH % 6.8 % (24.0-44.0); MEAN CORPUSCULAR HEMOGLOBIN 30.3 pg (27.0-33.0); MEAN CORPUSCULAR HGB CONC 31.9 g/dl (32.0-36.5); MEAN CORPUSCULAR VOLUME 94.9 fl (80.0-96.0); MONO # 0.9 10^3/uL (0.0-0.8); MONO % 7.6 % (2.0-8.0); NEUTROPHILS % 80.7 % (36.0-66.0); PLATELET COUNT, AUTOMATED 420 10^3/uL (150-450); WHITE BLOOD COUNT 11.2 10^3/uL (4.0-10.0)
[2020-08-26 05:48] LABS: ALBUMIN 2.2 GM/DL (3.2-5.2); ALT/SGPT 191 U/L (12-78); BILIRUBIN,TOTAL 0.5 MG/DL (0.2-1.0); BLOOD UREA NITROGEN 38 MG/DL (7-18); CALCIUM LEVEL 9.1 MG/DL (8.8-10.2); CARBON DIOXIDE LEVEL 22 MEQ/L (21-32); CHLORIDE LEVEL 114 MEQ/L (98-107); CREATININE FOR GFR 1.22 MG/DL (0.70-1.30); GLOMERULAR FILTRATION RATE > 60.0 (>35); GLUCOSE, FASTING 131 MG/DL (70-100); MAGNESIUM LEVEL 2.1 MG/DL (1.8-2.4); SODIUM LEVEL 144 MEQ/L (136-145)
[2020-08-26] MEDS: SODIUM CHLORIDE 0.9% INJ 10 ML SYR IV SCH ×2 (06:17→17:32)
[2020-08-26] MEDS: ATORVASTATIN 20 MG TAB PO SCH (08:33)
[2020-08-26] MEDS: ASPIRIN 81 MG CHEW TABLET PO SCH (08:33)
[2020-08-26] MEDS: OMEPRAZOLE 20 MG CAP PO SCH (08:34)
[2020-08-26] MEDS: FUROSEMIDE 20MG/2ML VIAL (J1940) IV SCH (08:43)
[2020-08-26] MEDS: HEPARIN SOD (PORCINE) 5000UNITS/ML 1ML VIAL/SYRINGE SQ SCH ×2 (08:44→08:49)
--- NOTE | 2020-08-26 13:00 | IPNPDOC ---
Text Note Date of Service The patient was seen on 08/26/20. NOTE Subjective: No any acute events overnight. Surgical team will proceed with PEG tube placement today Objective: GENERAL APPEARANCE: ill looking male HEENT: no scleral icterus, no JVD, EOMI CARDIOVASCULAR: S1S2 LUNGS: Diminished lung sounds bilaterally, gurgling sounds over trachea ABDOMEN: soft & not tender w palpitation MUSCULOSKELETAL: no cyanosis, no swelling INTEGUMENT: no generalized pallor NEUROLOGICAL: Left hemiplegia, no nuchal rigidity Assessment and Plan Pt is an 80 year old male without medical history who presents with left sided weakness. Resolved in the ED. 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 Diet was modified to nectar thickening liquids No atrial fibrillation on telemetry or EKG Echo showed Normal global left ventricular systolic function with mild concentric left ventricular hypertrophy. There are some features of left ventricular diastolic dysfunction manifested by abnormal relaxation On 08/20/20 speech specialist evaluation: recommended rec diet (c/w lvl 1/pureed w NTL) Continue statin, aspirin continue TPN. PEG tube placement today Nothing by mouth for now Aspiration pneumonia/dysphagia X-ray showed Left lower lobe infiltrate consistent with pneumonia Speech eval daily Procalcitonin 0.09 on 08/15/20 Today patient has mild leukocytosis of 11.9. Patient completed the course of meropenem. Blood culture negative from 08/14/[address] chest showed Bibasilar infiltrates and small bilateral pleural effusions as described. Dependent atelectasis posteriorly in the upper lobes bilaterally. Patient has a high risk for aspiration Patient has increased leukocytosis on 08/19/20, could be secondary to reactive pneumonitis due to aspiration. X-ray was done and showed improved bibasilar atelectasis/infiltrate with minimal residual. I started Zosyn empirically day 6 Blood culture negative. Leukocytosis 12.3 on 08/25/20 DuoNeb [id number] On 08/26/20 white blood count 11.2 . DC Zosyn Acute Diastolic CHF BNP elevated on 08/14/20 to 1459 Continue Lasix IV Hypernatremia Resolved Continue TPN without sodium Hypertension Labetalol IV every hour when necessary Continue amlodipine and lisinopril Hypokalemia Resolved Palliative care encounter Prognosis remains poor. Follow-up with palliative care Oropharyngeal dysfunction Pt presents with mild-moderate oropharyngeal phase dysphagia . Diet was modified to Puree solids and nectar thick liquids (no straws). Recommend: Meds crushed Recommend: Assist with feeding Will keep patient nothing by mouth for today due to PEG tube placement DVT ppx Heparin 5000 BID VS,Fishbone, I+O VS, Fishbone, I+O Laboratory Tests 08/26/20 05:00 Vital Signs Date Time Temp Pulse Resp B/P (MAP) Pulse Ox O2 Delivery O2 Flow Rate FiO2 08/26/20 12:00 6.0 08/26/20 12:00 93 Nasal Cannula 08/26/20 11:31 98.0 89 20 140/77 (98) I&O- Last 24 Hours up to 6 AM 08/26/20 05:59 Intake Total 410 ml Output Total 1050 ml Balance -640 ml VICKY ALEGRE DO Aug 26, 2020 13:00
--- NOTE | 2020-08-26 14:05 | IPNPDOC ---
Subjective General Date/Time Seen The patient was seen on 08/26/20 at 14:00. Subject Chief Complaint/History The patient is a 80-year-old male admitted with a reason for visit of TIA. SUBJECTIVE: Mr. Caballero was seen and examined at the bedside this morning. He is quite somnolent. There is plan for PEG tube placement today so he is NPO. No issues reported overnight. OBJECTIVE: PHYSICAL EXAMINATION: VITAL SIGNS: see below GENERAL: Awake, does not appear in any acute distress, appears stated age HEENT: PERRL, EOMI, Oral mucous membranes are dry without lesions. NECK: No obvious JVD is noted. No adenopathy is appreciated. No thyromegaly CHEST/LUNGS: Some faint crackles appreciated at the bases bilaterally. There is no subcutaneous air appreciated. There is no tenderness to the chest wall. HEART: Regular rate and rhythm. No murmurs, rubs, or gallops are appreciated. Distal pulses are 2+. No carotid bruits appreciated. ABDOMEN: Soft, nontender, and nondistended. Bowel sounds are positive. No organomegaly is appreciated. No masses are appreciated. There are no peritoneal signs. There is no Plaza sign. EXTREMITIES: There is trace peripheral edema. There is no focal long bone tenderness or deformity. SKIN: The patients skin is warm and dry, without rashes or lesions. PSYCHIATRIC: Unable to assess due to patient's cognitive status NEUROLOGIC: The patient has speech deficits, left upper extremity is contracted, unable to assess full neurologic exam IMAGING: No new imaging LABS: See below ASSESSMENT: This is an 80-year-old male with history of hypertension who presented with left-sided weakness found to have acute CVA now complicated by dysphasia and resulting severe protein calorie malnutrition requiring IV TPN. PLAN: 1. Severe protein calorie malnutrition secondary to dysphagia: -Continue IV TPN, order placed for today. Due to transaminitis today, ordered without fat emulsion -Continue scopolamine for secretion management -Plan for PEG tube placement today, continue NPO until then 2. History of congestive heart failure: -Continue Lasix 20mg IV daily 3. History of aspiration pneumonitis: -WBC found to be 11.2 today -s/p course of IV Zosyn -Continue suctioning and oral care as prescribed by speech therapy 4. Hypertension: BP well-controlled at this time -Oral antihypertensives restarted 5. History of recent CVA: -Continue physical therapy, dysphagia treatment -Continue Lipitor and aspirin Disposition: PEG tube today. Continue TPN until patient can receive tube feeds. At that time, nephrology will sign off. Current Medications Current Medications Current Medications Medications (Trade) Dose Ordered Sig/Lloyd Route PRN Reason Start Time Stop Time Status Last Admin Dose Admin Acetaminophen (Tylenol Suppository) 650 mg Q4HP PRN [place] PAIN / FEVER 08/10/20 16:15 08/15/20 09:29 Albuterol/ Ipratropium (Duoneb (Ipr 0.5mg/Alb 2.5mg)) 3 ml RQ4H NEB 08/22/20 16:00 08/26/20 11:14 Amlodipine Besylate (Norvasc) 2.5 mg DAILY PO 08/09/20 09:00 08/10/20 07:23 DC 08/09/20 10:16 Amlodipine Besylate (Norvasc) 5 mg DAILY PO 08/07/20 09:00 08/07/20 18:40 DC 08/07/20 09:35 Amlodipine Besylate (Norvasc) 5 mg DAILY PO 08/10/20 09:00 08/10/20 16:11 DC 08/10/20 09:03 Amlodipine Besylate (Norvasc) 10 mg DAILY PO 08/17/20 09:00 08/20/20 12:25 DC 08/18/20 09:45 Amlodipine Besylate (Norvasc) 10 mg DAILY PO 08/20/20 09:00 08/25/20 09:26 Aspirin (Aspirin Chewable) 81 mg DAILY PO 08/21/20 09:00 08/25/20 09:26 Aspirin (Aspirin) 300 mg DAILY [place] 08/11/20 09:00 08/20/20 13:04 DC 08/20/20 09:49 Aspirin (Ecotrin) 81 mg DAILY PO 08/07/20 09:00 08/10/20 16:11 DC 08/10/20 09:03 Atorvastatin Calcium (Lipitor) 40 mg DAILY PO 08/17/20 09:00 08/25/20 09:26 Clopidogrel Bisulfate (PLAVix) 75 mg DAILY PO 08/07/20 09:00 08/10/20 16:11 DC 08/10/20 09:02 Dextrose/Sodium Chloride 1,000 ml @ 150 mls/hr Q6H40M IV 08/10/20 13:45 08/13/20 10:40 DC 08/13/20 09:39 Dextrose/Water 500 ml @ 50 mls/hr Q10H IV 08/14/20 11:35 08/15/20 15:09 DC 08/14/20 12:18 Docusate Sodium (Colace) 100 mg BID PO 08/08/20 09:00 08/10/20 13:55 DC 08/09/20 10:16 Fat Emulsion Intravenous 500 ml @ 20 mls/hr ONCE@1800 IV 08/24/20 18:00 08/24/20 11:19 DC Fat Emulsion Intravenous 500 ml @ 20 mls/hr ONCE@1800 IV 08/23/20 18:00 08/24/20 17:59 DC 08/23/20 18:11 Furosemide (LASIX injection) 20 mg DAILY IV 08/18/20 09:00 08/26/20 08:43 Heparin Sodium (Heparin (Flush)) 200 units ASDIRECTED PRN IV SEE LABEL COMMENTS 08/12/20 18:35 08/23/20 11:35 Heparin Sodium (Heparin (Flush)) 200 units PICC IV 08/13/20 06:00 08/26/20 06:17 Heparin Sodium (Porcine) (Heparin) 5,000 units BID SQ 08/13/20 21:00 08/25/20 20:22 Home Med (Med Rec Complete!) ASDIRECTED XX 08/06/20 17:50 08/06/20 17:49 DC Hydralazine HCl (Apresoline) 10 mg Q1HP PRN IV SBP > 170 08/13/20 07:50 08/13/20 10:23 DC Hydralazine HCl (Apresoline) 10 mg Q4HP PRN IV SBP > 170 08/10/20 18:15 08/13/20 07:48 DC 08/12/20 18:38 Hydralazine HCl (Apresoline) 10 mg Q6HP PRN IV SBP > 170 08/08/20 19:10 08/10/20 16:11 DC 08/10/20 14:53 Insulin Human Lispro (HumaLOG INSULIN) See Protocol Table Q6H [place] 08/13/20 18:00 08/14/20 12:01 DC 08/14/20 12:22 Insulin Human Lispro (HumaLOG INSULIN) See Protocol Table Q6H [place] 08/14/20 18:00 08/15/20 12:01 DC 08/15/20 12:22 Insulin Human Lispro (HumaLOG INSULIN) See Protocol Table Q6H NJ 08/15/20 18:00 08/16/20 12:01 DC 08/16/20 12:21 Insulin Human Lispro (HumaLOG INSULIN) See Protocol Table Q6H NJ 08/24/20 18:00 08/25/20 12:01 DC 08/25/20 05:48 Insulin Human Lispro (HumaLOG INSULIN) See Protocol Table Q6H [place] 08/25/20 18:00 08/26/20 12:01 DC 08/26/20 11:33 Insulin Human Lispro (HumaLOG INSULIN) See Protocol Table Q6H [place] 08/26/20 18:00 08/27/20 12:01 Insulin Human Lispro (HumaLOG INSULIN) See Protocol Table Q6H [place] 08/16/20 18:00 08/17/20 12:01 DC 08/17/20 06:46 Insulin Human Lispro (HumaLOG INSULIN) See Protocol Table Q6H [place] 08/17/20 18:00 08/18/20 12:01 DC 08/18/20 11:50 Insulin Human Lispro (HumaLOG INSULIN) See Protocol Table Q6H NJ 08/18/20 18:00 08/19/20 12:01 DC 08/19/20 05:55 Insulin Human Lispro (HumaLOG INSULIN) See Protocol Table Q6H [place] 08/19/20 18:00 08/20/20 12:01 DC 08/20/20 12:29 Insulin Human Lispro (HumaLOG INSULIN) See Protocol Table Q6H NJ 08/21/20 18:00 08/22/20 12:01 DC 08/22/20 05:56 Insulin Human Lispro (HumaLOG INSULIN) See Protocol Table Q6H NJ 08/22/20 18:00 08/23/20 12:01 DC 08/23/20 13:03 Insulin Human Lispro (HumaLOG INSULIN) See Protocol Table Q6H NJ 08/23/20 18:00 08/24/20 12:01 DC 08/24/20 05:44 Labetalol HCl (Normodyne, Trandate) 10 mg Q1H PRN IV SBP>170 08/13/20 10:20 08/17/20 01:44 Labetalol HCl (Normodyne, Trandate) 20 mg STAT STAT IV 08/11/20 07:53 08/11/20 07:54 DC 08/11/20 08:17 Lactated Ringer's 1,000 ml @ 150 mls/hr Q6H40M IV 08/09/20 07:20 08/10/20 13:55 DC 08/10/20 13:51 Lisinopril (Prinivil) 20 mg DAILY PO 08/17/20 09:00 08/20/20 12:31 DC 08/18/20 09:44 Lisinopril (Prinivil) 20 mg DAILY PO 08/20/20 09:00 08/25/20 09:26 Meropenem 1 gm/IV Miscellaneous Supplies 50 ml @ 100 mls/hr Q8H IV 08/10/20 14:00 08/17/20 11:06 DC 08/17/20 05:22 Metoprolol Tartrate (Lopressor) 2.5 mg STAT STAT IV 08/12/20 22:07 08/12/20 22:08 DC 08/12/20 22:27 Metoprolol Tartrate (Lopressor) 5 mg Q1HP PRN IV HR>110 08/13/20 10:20 Omeprazole (PriLOSEC) 40 mg DAILY PO 08/17/20 09:00 08/25/20 09:26 Ondansetron HCl (ZOFRAN INJection) 4 mg Q6HP PRN IV NAUSEA OR VOMITING 08/07/20 18:25 08/08/20 13:32 Oxymetazoline HCl (Afrin) 2 spray ASDIRECTED PRN NA SEE LABEL COMMENTS 08/15/20 09:00 Pantoprazole Sodium (Protonix) 40 mg DAILY IV 08/10/20 13:45 08/17/20 07:51 DC 08/16/20 10:20 Piperacillin Sod/ Tazobactam Sod 3.375 gm/Dextrose 50 ml @ 50 mls/hr Q6H IV 08/19/20 08:00 08/26/20 10:09 DC 08/26/20 08:43 Potassium Chloride 10 meq/ IV Miscellaneous Supplies 100 ml @ 100 mls/hr Q1H IV 08/13/20 10:00 08/13/20 11:59 DC 08/13/20 12:22 Potassium Chloride 20 meq/ Potassium Phosphate 30 mmol/ Magnesium Sulfate 5.6 meq/Calcium Gluconate 1389 mg/ Multivitamins 10 ml/Chromium/ Copper/Manganese/ Seleni/Zn 1 ml/ Amino Acids/ Dextrose 2,046.29 ml @ 60 mls/hr ONCE@1800 IV 08/19/20 18:00 08/20/20 17:59 DC 08/19/20 19:22 Potassium Chloride 20 meq/ Potassium Phosphate 30 mmol/ Magnesium Sulfate 11.1 meq/Calcium Gluconate 1389 mg/ Amino Acids/ Dextrose 2,036.665 ml @ 60 mls/hr ONCE@1800 IV 08/17/20 18:00 08/18/20 17:59 DC 08/17/20 17:57 Potassium Chloride 40 meq/ Potassium Phosphate 20 mmol/ Magnesium Sulfate 9.52 meq/Calcium Gluconate 1190 mg/ Amino Acids/ Dextrose 2,040.9467 ml @ 70 mls/hr ONCE@1800 IV 08/15/20 18:00 08/16/20 17:59 DC 08/15/20 18:11 Potassium Chloride 40 meq/ Potassium Phosphate 20 mmol/ Magnesium Sulfate 9.52 meq/Calcium Gluconate 1190 mg/ Multivitamins 10 ml/Chromium/ Copper/Manganese/ Seleni/Zn 1 ml/ Amino Acids/ Dextrose 2,051.9467 ml @ 70 mls/hr ONCE@1800 IV 08/16/20 18:00 08/17/20 17:59 DC 08/16/20 18:40 Potassium Chloride 40 meq/ Potassium Phosphate 20 mmol/ Magnesium Sulfate 9.52 meq/Calcium Gluconate 1190 mg/ Multivitamins 10 ml/Chromium/ Copper/Manganese/ Seleni/Zn 1 ml/ Insulin Human Regular 10 units/ Amino Acids/ Dextrose 2,052.0467 ml @ 70 mls/hr ONCE@1800 IV 08/16/20 18:00 08/17/20 17:59 UNV Potassium Chloride 40 meq/ Potassium Phosphate 20 mmol/ Magnesium Sulfate 11.1 meq/Calcium Gluconate 1389 mg/ Multivitamins 10 ml/Chromium/ Copper/Manganese/ Seleni/Zn 1 ml/ Amino Acids/ Dextrose 2,054.3317 ml @ 70 mls/hr ONCE@1800 IV 08/14/20 18:00 08/15/20 17:59 DC 08/14/20 18:16 Potassium Chloride 80 meq/ Potassium Phosphate 40 mmol/ Magnesium Sulfate 11.1 meq/Calcium Gluconate 1389 mg/ Amino Acids/ Dextrose 2,069.9983 ml @ 60 mls/hr ONCE@1800 IV 08/13/20 18:00 08/14/20 17:59 DC 08/13/20 18:13 Potassium Phosphate 30 mmol/ Calcium Gluconate 1389 mg/ Multivitamins 10 ml/Chromium/ Copper/Manganese/ Seleni/Zn 1 ml/ Amino Acids/ Dextrose 2,034.89 ml @ 60 mls/hr ONCE@1800 IV 08/26/20 18:00 08/27/20 17:59 Potassium Phosphate 30 mmol/ Calcium Gluconate 1389 mg/ Multivitamins 10 ml/Chromium/ Copper/Manganese/ Seleni/Zn 1 ml/ Amino Acids/ Dextrose 2,034.89 ml @ 60 mls/hr ONCE@1800 IV 08/23/20 18:00 08/24/20 17:59 DC 08/23/20 18:12 Potassium Phosphate 30 mmol/ Calcium Gluconate 1389 mg/Amino Acids/Dextrose 2,023.89 ml @ 60 mls/hr ONCE@1800 IV 08/24/20 18:00 08/25/20 17:59 DC 08/24/20 18:00 Potassium Phosphate 30 mmol/ Calcium Gluconate 1389 mg/Amino Acids/Dextrose 2,023.89 ml @ 60 mls/hr ONCE@1800 IV 08/22/20 18:00 08/23/20 17:59 DC 08/22/20 17:23 Potassium Phosphate 30 mmol/ Magnesium Sulfate 5.6 meq/Calcium Gluconate 1389 mg/ Amino Acids/ Dextrose 2,025.29 ml @ 60 mls/hr ONCE@1800 IV 08/25/20 18:00 08/26/20 17:59 08/25/20 18:07 Potassium Phosphate 30 mmol/ Magnesium Sulfate 5.6 meq/Calcium Gluconate 1389 mg/ Multivitamins 10 ml/Chromium/ Copper/Manganese/ Seleni/Zn 1 ml/ Amino Acids/ Dextrose 2,036.29 ml @ 60 mls/hr ONCE@1800 IV 08/21/20 18:00 08/22/20 17:59 DC 08/21/20 17:11 Potassium Phosphate 30 mmol/ Magnesium Sulfate 11.1 meq/Calcium Gluconate 1389 mg/ Amino Acids/ Dextrose 2,026.665 ml @ 60 mls/hr ONCE@1800 IV 08/18/20 18:00 08/19/20 17:59 DC 08/18/20 17:41 Pravastatin Sodium (Pravachol) 40 mg QHS PO 08/06/20 21:00 08/10/20 16:11 DC 08/09/20 22:09 Scopolamine (Scopolamine) 1 mg Q72H TOP 08/18/20 20:00 08/24/20 20:05 Sodium Chloride 1,000 ml @ 60 mls/hr [id number] IV 08/07/20 16:40 08/09/20 07:20 DC 08/08/20 19:45 Sodium Chloride 1,000 ml @ 80 mls/hr [id number] IV 08/19/20 11:05 08/20/20 02:13 DC 08/20/20 00:17 Sodium Chloride (Saline Lock Flush) 10 ml ASDIRECTED PRN IV SEE LABEL COMMENTS 08/12/20 18:35 08/23/20 11:35 Sodium Chloride (Saline Lock Flush) 10 ml PICC IV 08/13/20 06:00 08/26/20 06:17 Tamsulosin HCl (Flomax) 0.4 mg QHS PO 08/06/20 21:00 08/10/20 16:11 DC 08/09/20 22:09 Vancomycin HCl 750 mg/IV Miscellaneous Supplies 1 each/ Sodium Chloride 275 ml @ 275 mls/hr Q12H IV 08/15/20 04:00 08/15/20 12:20 DC 08/15/20 04:48 Vancomycin HCl 1000 mg/IV Miscellaneous Supplies 1 each/ Sodium Chloride 270 ml @ 270 mls/hr Q12H IV 08/14/20 10:30 08/14/20 11:24 DC Allergies Coded Allergies: No Known Allergies (Unverified , 08/06/20) VS,Fishbone, I+O VS, Fishbone, I+O Laboratory Tests 08/26/20 05:00 Vital Signs Date Time Temp Pulse Resp B/P (MAP) Pulse Ox O2 Delivery O2 Flow Rate FiO2 08/26/20 12:00 6.0 08/26/20 12:00 93 Nasal Cannula 08/26/20 11:31 98.0 89 20 140/77 (98) I&O- Last 24 Hours up to 6 AM 08/26/20 06:00 Intake Total 820 ml Output Total 1400 ml Balance -580 ml GME ATTESTATION GME ATTESTATION My faculty preceptor for this patient encounter was physically present during the encounter and was fully available. All aspects of the patient interview, examination, medical decision making process, and medical care plan development were reviewed and approved by the faculty preceptor. The faculty preceptor is aware and concurs with the plan as stated in the body of this note and will attest to such by his/her cosignature. ATTENDING NOTE Pt seen & examined. No change in physical exam. Orders for hypotonic TPN written. Electrolytes all stable. Remainder as outlined above. PERLA VALLEJO MD Aug 26, 2020 14:05 BRAXTON CHOUDHARY DO Sep 01, 2020 12:10
[2020-08-26] MEDS ORDERED: POTASSIUM PHOSPHATE IV SCH ×5 (18:00)
[2020-08-26] MEDS ORDERED: [UNRECOGNIZED DRUG - OTHER] IV SCH ×5 (18:00)
[2020-08-26] MEDS ORDERED: CALCIUM GLUCONATE IV SCH ×5 (18:00)
[2020-08-26] MEDS ORDERED: ceFAZolin SOD 2 GM in IV 1 EA IV ONE (19:00)
[2020-08-26] MEDS ORDERED: fentaNYL 100 MCG/2 ML INJECTION (J3010) As Ordered ONE (20:00)
[2020-08-26] MEDS ORDERED: LIDOCAINE 2% 100MG/5ML SDV (FOR ANES.) As Ordered ONE (20:00)
[2020-08-26] MEDS ORDERED: propofoL 500 MG/50 ML VIAL As Ordered ONE (20:00)
[2020-08-26] MEDS ORDERED: ACETAMINOPHEN 325 MG/10.15 ML UDC GT PRN (22:00)
[2020-08-26] MEDS ORDERED: ONDANSETRON 4MG/2ML VIAL IV PRN (23:30)
[2020-08-27] VITALS (17 sets, daily range): BP systolic 136–169; BP diastolic 66–79; O2SAT 93–97
[2020-08-27] MEDS: IPRATROPIUM 0.5MG/ALBUTEROL 2.5MG INH SOL UD 3ML (DUONEB) NEB SCH ×6 (04:00→23:58)
[2020-08-27 05:45] LABS: BASO # 0.1 10^3/uL (0.0-0.2); BASO % 0.6 % (0.0-1.0); EOS # 0.4 10^3/uL (0.0-0.5); EOS % 3.7 % (0.0-3.0); HEMATOCRIT 37.7 % (42.0-52.0); HEMOGLOBIN 12.2 g/dl (13.5-17.5); LYMPH # 0.8 10^3/uL (1.5-5.0); LYMPH % 6.6 % (24.0-44.0); MEAN CORPUSCULAR HEMOGLOBIN 30.8 pg (27.0-33.0); MEAN CORPUSCULAR HGB CONC 32.4 g/dl (32.0-36.5); MEAN CORPUSCULAR VOLUME 95.2 fl (80.0-96.0); MONO # 0.8 10^3/uL (0.0-0.8); MONO % 6.7 % (2.0-8.0); NEUTROPHILS # 9.6 10^3/uL (1.5-8.5); NEUTROPHILS % 81.7 % (36.0-66.0); PLATELET COUNT, AUTOMATED 410 10^3/uL (150-450); RED BLOOD COUNT 3.96 10^6/uL (4.30-6.10); WHITE BLOOD COUNT 11.8 10^3/uL (4.0-10.0)
[2020-08-27] MEDS: SODIUM CHLORIDE 0.9% INJ 10 ML SYR IV SCH ×2 (06:00→18:23)
[2020-08-27 06:10] LABS: ALBUMIN 2.3 GM/DL (3.2-5.2); ALT/SGPT 166 U/L (12-78); BILIRUBIN,TOTAL 0.3 MG/DL (0.2-1.0); BLOOD UREA NITROGEN 38 MG/DL (7-18); CALCIUM LEVEL 9.1 MG/DL (8.8-10.2); CARBON DIOXIDE LEVEL 26 MEQ/L (21-32); CHLORIDE LEVEL 113 MEQ/L (98-107); CREATININE FOR GFR 1.11 MG/DL (0.70-1.30); GLOMERULAR FILTRATION RATE > 60.0 (>35); GLUCOSE, FASTING 135 MG/DL (70-100); MAGNESIUM LEVEL 2.3 MG/DL (1.8-2.4); POTASSIUM SERUM 4.2 MEQ/L (3.5-5.1); SODIUM LEVEL 144 MEQ/L (136-145); TOTAL PROTEIN 6.5 GM/DL (6.4-8.2)
[2020-08-27] MEDS: HumaLOG INSULIN (NovoLOG) PER UNIT SC SCH ×4 (07:25→17:35)
[2020-08-27] MEDS: HEPARIN SOD (PORCINE) 5000UNITS/ML 1ML VIAL/SYRINGE SQ SCH ×2 (08:47→20:00)
[2020-08-27] MEDS: ATORVASTATIN 20 MG TAB PO SCH (08:48)
[2020-08-27] MEDS: FUROSEMIDE 20MG/2ML VIAL (J1940) IV SCH (08:48)
[2020-08-27] MEDS: ASPIRIN 81 MG CHEW TABLET PO SCH (08:48)
[2020-08-27] MEDS: OMEPRAZOLE 20 MG CAP PO SCH (08:49)
[2020-08-27] MEDS ORDERED: DEXTROSE 50% 50 ML SYRINGE IV PRN (11:40)
[2020-08-27] MEDS ORDERED: GLUCOSE 4GM CHEW TABLET PO PRN (11:40)
[2020-08-27] MEDS ORDERED: GLUCAGON INJ 1MG VIAL SC PRN (11:40)
--- NOTE | 2020-08-27 12:04 | IPNPDOC ---
Text Note Date of Service The patient was seen on 08/27/20. NOTE Subjective: No any acute events overnight. PEG was placed yesterday, patient tolerates procedure well Objective: GENERAL APPEARANCE: ill looking male HEENT: no scleral icterus, no JVD, EOMI CARDIOVASCULAR: S1S2 LUNGS: Diminished lung sounds bilaterally, gurgling sounds over trachea ABDOMEN: soft & not tender w palpitation, PEG tube in place MUSCULOSKELETAL: no cyanosis, no swelling INTEGUMENT: no generalized pallor NEUROLOGICAL: Left hemiplegia, no nuchal rigidity Assessment and Plan Pt is an 80 year old male without medical history who presents with left sided weakness. Resolved in the ED. 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 Diet was modified to nectar thickening liquids No atrial fibrillation on telemetry or EKG Echo showed Normal global left ventricular systolic function with mild concentric left ventricular hypertrophy. There are some features of left ventricular diastolic dysfunction manifested by abnormal relaxation On 08/20/20 speech specialist evaluation: recommended rec diet (c/w lvl 1/pureed w NTL) Continue statin, aspirin PEG tube placement was done yesterday. Will start feeding later the evening Nothing by mouth for now Aspiration pneumonia/dysphagia X-ray showed Left lower lobe infiltrate consistent with pneumonia Speech eval daily Procalcitonin 0.09 on 08/15/20 Today patient has mild leukocytosis of 11.9. Patient completed the course of meropenem. Blood culture negative from 08/14/[address] chest showed Bibasilar infiltrates and small bilateral pleural effusions as described. Dependent atelectasis posteriorly in the upper lobes bilaterally. Patient has a high risk for aspiration Patient has increased leukocytosis on 08/19/20, could be secondary to reactive pneumonitis due to aspiration. X-ray was done and showed improved bibasilar atelectasis/infiltrate with minimal residual. I started Zosyn empirically day 6 Blood culture negative. Leukocytosis 12.3 on 08/25/20 DuoNeb [id number] On 08/26/20 white blood count 11.2 . DC Zosyn Acute Diastolic CHF BNP elevated on 08/14/20 to 1459 Continue Lasix IV Hypernatremia Resolved Continue TPN without sodium Hypertension Labetalol IV every hour when necessary Continue amlodipine and lisinopril Hypokalemia Resolved Palliative care encounter Prognosis remains poor. Follow-up with palliative care Oropharyngeal dysfunction Pt presents with mild-moderate oropharyngeal phase dysphagia . Diet was modified to Puree solids and nectar thick liquids (no straws). Recommend: Meds crushed Recommend: Assist with feeding Will keep patient nothing by mouth for today due to PEG tube placement DVT ppx Heparin 5000 BID VS,Fishbone, I+O VS, Fishbone, I+O Laboratory Tests 08/27/20 05:25 Vital Signs Date Time Temp Pulse Resp B/P (MAP) Pulse Ox O2 Delivery O2 Flow Rate FiO2 08/27/20 11:34 99.3 89 18 136/68 (90) 96 Nasal Cannula 5.0 I&O- Last 24 Hours up to 6 AM 08/27/20 05:59 Intake Total 1980 ml Output Total 2225 ml Balance -245 ml VICKY ALEGRE DO Aug 27, 2020 12:04
[2020-08-28] VITALS (9 sets, daily range): BP systolic 108–149; BP diastolic 58–82; O2SAT 93–95
[2020-08-28] MEDS: HumaLOG INSULIN (NovoLOG) PER UNIT SC SCH ×5 (00:40→23:11)
[2020-08-28] MEDS: IPRATROPIUM 0.5MG/ALBUTEROL 2.5MG INH SOL UD 3ML (DUONEB) NEB SCH ×4 (02:55→20:17)
[2020-08-28] MEDS: SODIUM CHLORIDE 0.9% INJ 10 ML SYR IV SCH ×2 (05:06→17:45)
[2020-08-28 07:29] LABS: BASO # 0.1 10^3/uL (0.0-0.2); BASO % 0.5 % (0.0-1.0); EOS # 0.3 10^3/uL (0.0-0.5); EOS % 3.1 % (0.0-3.0); HEMATOCRIT 40.6 % (42.0-52.0); HEMOGLOBIN 13.3 g/dl (13.5-17.5); LYMPH # 0.9 10^3/uL (1.5-5.0); LYMPH % 8.3 % (24.0-44.0); MEAN CORPUSCULAR HEMOGLOBIN 31.1 pg (27.0-33.0); MEAN CORPUSCULAR HGB CONC 32.8 g/dl (32.0-36.5); MEAN CORPUSCULAR VOLUME 94.9 fl (80.0-96.0); MONO # 0.6 10^3/uL (0.0-0.8); MONO % 6.1 % (2.0-8.0); NEUTROPHILS # 8.3 10^3/uL (1.5-8.5); NEUTROPHILS % 81.3 % (36.0-66.0); PLATELET COUNT, AUTOMATED 420 10^3/uL (150-450); RED BLOOD COUNT 4.28 10^6/uL (4.30-6.10); WHITE BLOOD COUNT 10.3 10^3/uL (4.0-10.0)
[2020-08-28 07:52] LABS: ALBUMIN 2.5 GM/DL (3.2-5.2); ALT/SGPT 198 U/L (12-78); BILIRUBIN,TOTAL 0.3 MG/DL (0.2-1.0); BLOOD UREA NITROGEN 40 MG/DL (7-18); CALCIUM LEVEL 9.4 MG/DL (8.8-10.2); CARBON DIOXIDE LEVEL 27 MEQ/L (21-32); CHLORIDE LEVEL 114 MEQ/L (98-107); CREATININE FOR GFR 1.02 MG/DL (0.70-1.30); GLOMERULAR FILTRATION RATE > 60.0 (>35); GLUCOSE, FASTING 112 MG/DL (70-100); MAGNESIUM LEVEL 2.4 MG/DL (1.8-2.4); POTASSIUM SERUM 4.1 MEQ/L (3.5-5.1); SODIUM LEVEL 147 MEQ/L (136-145); TOTAL PROTEIN 6.8 GM/DL (6.4-8.2)
[2020-08-28] MEDS: ASPIRIN 81 MG CHEW TABLET PO SCH (09:40)
[2020-08-28] MEDS: FUROSEMIDE 20MG/2ML VIAL (J1940) IV SCH (09:40)
[2020-08-28] MEDS: ATORVASTATIN 20 MG TAB PO SCH (09:41)
[2020-08-28] MEDS: HEPARIN SOD (PORCINE) 5000UNITS/ML 1ML VIAL/SYRINGE SQ SCH ×2 (09:41→21:24)
[2020-08-28] MEDS: OMEPRAZOLE 20 MG CAP PO SCH (09:41)
[2020-08-29] VITALS: BP 120/58
[2020-08-29] MEDS: IPRATROPIUM 0.5MG/ALBUTEROL 2.5MG INH SOL UD 3ML (DUONEB) NEB SCH ×5 (00:07→15:02)
[2020-08-29 04:00] VITALS: BP 116/56
[2020-08-29] MEDS: SODIUM CHLORIDE 0.9% INJ 10 ML SYR IV SCH (05:40)
[2020-08-29 05:55] LABS: BASO # 0.1 10^3/uL (0.0-0.2); BASO % 0.5 % (0.0-1.0); EOS # 0.4 10^3/uL (0.0-0.5); EOS % 3.7 % (0.0-3.0); HEMATOCRIT 42.5 % (42.0-52.0); HEMOGLOBIN 13.6 g/dl (13.5-17.5); LYMPH # 1.1 10^3/uL (1.5-5.0); LYMPH % 9.1 % (24.0-44.0); MEAN CORPUSCULAR HEMOGLOBIN 30.7 pg (27.0-33.0); MEAN CORPUSCULAR VOLUME 95.9 fl (80.0-96.0); MONO # 0.9 10^3/uL (0.0-0.8); MONO % 7.3 % (2.0-8.0); NEUTROPHILS # 9.2 10^3/uL (1.5-8.5); NEUTROPHILS % 78.7 % (36.0-66.0); PLATELET COUNT, AUTOMATED 420 10^3/uL (150-450); RED BLOOD COUNT 4.43 10^6/uL (4.30-6.10); WHITE BLOOD COUNT 11.7 10^3/uL (4.0-10.0)
[2020-08-29] MEDS: HumaLOG INSULIN (NovoLOG) PER UNIT SC SCH ×2 (06:19→12:45)
[2020-08-29 06:42] LABS: ALBUMIN 2.5 GM/DL (3.2-5.2); BILIRUBIN,TOTAL 0.4 MG/DL (0.2-1.0); CALCIUM LEVEL 10.1 MG/DL (8.8-10.2); CREATININE FOR GFR 1.35 MG/DL (0.70-1.30); MAGNESIUM LEVEL 2.6 MG/DL (1.8-2.4); POTASSIUM SERUM 4.1 MEQ/L (3.5-5.1); TOTAL PROTEIN 6.7 GM/DL (6.4-8.2)
[2020-08-29 07:20] VITALS: BP 142/80
[2020-08-29 08:18] VITALS: BP 142/80
[2020-08-29] MEDS: ATORVASTATIN 20 MG TAB PO SCH (08:18)
[2020-08-29] MEDS: ASPIRIN 81 MG CHEW TABLET PO SCH (08:18)
[2020-08-29] MEDS: OMEPRAZOLE 20 MG CAP PO SCH (08:19)
[2020-08-29] MEDS: FUROSEMIDE 20MG/2ML VIAL (J1940) IV SCH (08:19)
[2020-08-29] MEDS: HEPARIN SOD (PORCINE) 5000UNITS/ML 1ML VIAL/SYRINGE SQ SCH (08:19)
[2020-08-29] MEDS: SODIUM CHLORIDE 0.9% INJ 10 ML SYR IV PRN (08:20)
[2020-08-29] MEDS ORDERED: ASPI81CH8 PO (10:03)
[2020-08-29] MEDS ORDERED: FURO20TA2 PO (10:03)
[2020-08-29] MEDS ORDERED: OMEP-218 PO (10:03)
[2020-08-29] MEDS ORDERED: LISI20TA33 PO (10:03)
[2020-08-29] MEDS ORDERED: ATOR1TAB21 PO (10:03)
[2020-08-29] MEDS ORDERED: NS 1,000 ML IV ONE (10:45)
[2020-08-29] MEDS ORDERED: D5W/0.45% SODIUM CHLORIDE 500 ML IV ONE (11:05)
[2020-08-29 14:36] LABS: CALCIUM LEVEL 8.7 MG/DL (8.8-10.2); CREATININE FOR GFR 1.45 MG/DL (0.70-1.30); GLOMERULAR FILTRATION RATE 49.7 (>35)
--- NOTE | 2020-08-29 18:26 | DS.PDOC ---
Discharge Summary General Date of Admission Aug 07, 2020 at 16:23 Date of Discharge 08/29/20 Discharge Summary PROCEDURES PERFORMED DURING STAY: [None]. 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 HISTORY OF PRESENT ILLNESS:Mr. Thompson is an 80 year old male without medical history who presents with left sided weakness. He initially he tripped and fell on Wednesday and landed on his chest. He was able to get back up. His chest pain continued, so he went to the urgent care today. Urgent care sent him to the hospital. Imaging was negative for fracture and pain improved with Ketorolac. He did have hypertension, and ED initially wanted to admit for hypertensive urgency. Patient did not want to stay, he was given amlodipine and PO ketorolac and sent home. He picked up the medications. At home, he was trying to reach into his car to pick something up when he leaned backwards and fell. He denies blacking out, but he tried to get up and was not able to. He felt that his left leg was weaker than normal. His landlord was there and helped him get up and called for an ambulance. When he arrived, the ED provider reported that he had dysarthria, left facial droop, and left upper and lower extremity weakness. He went to CT head and CT angio of the head and neck. Negative for hemorrhage or significant stenosis. By that time about an hour has passed since symptoms started and symptoms completely resolved. ED spoke with neurology. Patient received full dose aspirin. When I spoke with the patient, this is the first time he has ever had weakness. Denies fever/chills, chest pain, dyspnea, abdominal pain, or dysuria. He has a chronic smoker's cough. Patient will be admitted for TIA. 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 Diet was modified to nectar thickening liquids No atrial fibrillation on telemetry or EKG Echo showed Normal global left ventricular systolic function with mild concentric left ventricular hypertrophy. There are some features of left ventricular diastolic dysfunction manifested by abnormal relaxation On 08/20/20 speech specialist evaluation: recommended rec diet (c/w lvl 1/pureed w NTL) however patient continues to have aspirations PEG tube placement was done 08/26/20. Aspiration pneumonia/dysphagia X-ray showed Left lower lobe infiltrate consistent with pneumonia Speech eval daily Procalcitonin 0.09 on 08/15/20 Today patient has mild leukocytosis of 11.9. Patient completed the course of meropenem. Blood culture negative from 08/14/[address] chest showed Bibasilar infiltrates and small bilateral pleural effusions as described. Dependent atelectasis posteriorly in the upper lobes bilaterally. Patient has a high risk for aspiration Patient has increased leukocytosis on 08/19/20, could be secondary to reactive pneumonitis due to aspiration. X-ray was done and showed improved bibasilar atelectasis/infiltrate with minimal residual. I started Zosyn empirically day 6 Blood culture negative. Leukocytosis 12.3 on 08/25/20 DuoNeb [id number] On 08/26/20 white blood count improved. DC Zosyn Acute Diastolic CHF BNP elevated on 08/14/20 to 1459 Continue Lasix IV Hypernatremia Dietitian modified PEG feeding, added free water Hypertension Continue amlodipine and lisinopril Hypokalemia Resolved Palliative care encounter Prognosis remains poor. Follow-up with palliative care Oropharyngeal dysfunction Pt presents with mild-moderate oropharyngeal phase dysphagia . DVT ppx Heparin 5000 BID DISCHARGE MEDICATIONS: Please see below. ALLERGIES: Please see below. PHYSICAL EXAMINATION ON DISCHARGE: VITAL SIGNS: Please see below. GENERAL APPEARANCE: ill looking male HEENT: no scleral icterus, no JVD, EOMI CARDIOVASCULAR: S1S2 LUNGS: Diminished lung sounds bilaterally, gurgling sounds over trachea ABDOMEN: soft & not tender w palpitation, PEG tube in place MUSCULOSKELETAL: no cyanosis, no swelling INTEGUMENT: no generalized pallor NEUROLOGICAL: Left hemiplegia, no nuchal rigidity LABORATORY DATA: Please see below. IMAGING: [facility] NAME: ADILENE THOMPSON DATE OF : 1940 BUSINESS NUMBER: [id number] AGE: 80 SEX: M REPORT #: [id number] ROOM: [facility] TECHNOLOGIST: [email or web address] DOCTOR: HUGO DELACRUZ DO Ordered for Date&Time: 08/06/201747 cc: [~ rep ct ivnm] Service Date&Time: 08/06/201953 This report is in Signed status. Interpretation performed by [facility]. Thank you for having your radiology procedures performed at [facility] RADIOLOGY REPORT Date&Time printed: [~ rep prt dt last] [~ rep prt tm last] Page 2 of 2 [place] [id number] RADIOLOGY REPORT This report is in Signed status. Interpretation performed by [facility]. Thank you for having your radiology procedures performed at [facility] RADIOLOGY REPORT Date&Time printed: [~ rep prt dt last] [~ rep prt tm last] Page 1 of 2 NAME: ADILENE THOMPSON DATE OF : 1940 BUSINESS NUMBER: [id number] AGE: 80 SEX: M REPORT #: [id number] ROOM: [facility] TECHNOLOGIST: AUDREY DOCTOR: HUGO DELACRUZ DO Ordered for Date&Time: 08/06/201747 cc: [~ rep ct ivnm] Service Date&Time: 08/06/201953 EXAMINATION REQUESTED: MRI-Brain without Contrast REASON FOR PATIENT VISIT: TIA REASON FOR EXAMINATION: Dysarthria, facial droop, left sided weakness ADDENDUM REPORT 1 THIS REPORT CONTAINS FINDINGS THAT MAY BE CRITICAL TO PATIENT CARE. The findings were verbally communicated via telephone conference with Dr. Larsen at 9:21 PM EDT on 08/06/2020. The findings were acknowledged and understood. Electronically signed by: Mya Nixon On 08/06/2020 21:24:09 PM DD: MYA NIXON MD 08/06/201953 DT: ALEXIS 08/06/202123 DS: PHILIP 08/06/202123 PROCEDURE INFORMATION: Exam: MR Head Without Contrast Exam date and time: 08/06/2020 7:54 PM Age: 80 years old Clinical indication: Other: Dysarthria, facial droop, left sided weakness TECHNIQUE: Imaging protocol: MR of the head without contrast. COMPARISON: 1. CT Head without contrast 08/06/2020 4:[address] ANGIO HEAD 08/06/2020 4:39:04 PM FINDINGS: Brain: Patchy areas of medial right frontal lobe parenchymal true diffusion restriction with correlative cytotoxic edema on the T2 weighted imaging consistent with recent acute to subacute infarcts in the right SALLY territory. No evidence of infarct hemorrhagic conversion. The brain demonstrates generalized volume loss. Patchy increased signal intensity in the deep white matter and zaria on the T2 weighted imaging most likely represents chronic small vessel ischemic change. Cerebral ventricles: Xanthogranulomatous changes of the choroid plexus. The ventricles are moderately enlarged in keeping with volume loss. Bones/joints: Unremarkable. Paranasal sinuses: Mild ethmoid sinus mucosal thickening. Mastoid air cells: Normal as visualized. No mastoid effusion. Orbital cavity: Unremarkable. Soft tissues: Unremarkable. IMPRESSION: Recent acute/subacute infarcts in the right SALLY territory. Electronically signed by: Mya Nixon On 08/06/2020 20:30:49 PM DD: MYA NIXON MD 08/06/201953 DT: ALEXIS 08/06/202029 DS: PHILIP 08/06/202029 [~ rep ct labl] PROGNOSIS: Fair ACTIVITY: [As tolerated]. DIET: via PEG DISPOSITION: 62 D[facility]T [facility]hab Facility. ITEMS TO FOLLOWUP ON ON OUTPATIENT: Follow-up with neurologist, PCP DISCHARGE CONDITION: [Stable]. TIME SPENT ON DISCHARGE: 40 minutes. Vital Signs/I&Os Vital Signs Date Time Temp Pulse Resp B/P (MAP) Pulse Ox O2 Delivery O2 Flow Rate FiO2 08/29/20 12:00 2.0 08/29/20 08:18 92 142/80 08/29/20 07:20 97.6 20 94 Nasal Cannula I&O- Last 24 Hours up to 6 AM 08/29/20 06:00 Intake Total 1175 ml Output Total 695 ml Balance 480 ml Laboratory Data Labs 24H Laboratory Tests 2 08/28/20 23:07: Bedside Glucose (Misc Panel) 127H 08/29/20 05:23: Immature Granulocyte % (Auto) 0.7, Neutrophils (%) (Auto) 78.7H, Lymphocytes (%) (Auto) 9.1L, Monocytes (%) (Auto) 7.3, Eosinophils (%) (Auto) 3.7H, Basophils (%) (Auto) 0.5, Neutrophils # (Auto) 9.2H, Lymphocytes # (Auto) 1.1L, Monocytes # (Auto) 0.9H, Eosinophils # (Auto) 0.4, Basophils # (Auto) 0.1, Nucleated Red Blood Cells % (auto) 0.0, Anion Gap 7L, Glomerular Filtration Rate 54.0, Calcium Level 10.1, Magnesium Level 2.6H, Total Bilirubin 0.4, Aspartate Amino Transf (AST/SGOT) 78H, Alanine Aminotransferase (ALT/SGPT) 176H, Alkaline Phosphatase 97, Total Protein 6.7, Albumin 2.5L, Albumin/Globulin Ratio 0.6 08/29/20 05:45: Bedside Glucose (Misc Panel) 120H 08/29/20 12:15: Bedside Glucose (Misc Panel) 138H 08/29/20 12:48: Anion Gap 7L, Glomerular Filtration Rate 49.7, Calcium Level 8.7L CBC/BMP Laboratory Tests 08/29/20 05:23 08/29/20 12:48 FSBS Laboratory Tests Test 08/28/20 23:07 08/29/20 05:45 08/29/20 12:15 Range/Units Bedside Glucose (Misc Panel) 127 120 138 83-110 MG/DL Microbiology Microbiology 08/19/20 Blood Culture - Final, Complete NO GROWTH AFTER 5 DAYS 08/19/20 Blood Culture - Final, Complete NO GROWTH AFTER 5 DAYS Discharge Medications Scheduled Amlodipine Besylate (Norvasc) 5 Mg Tablet, 1 TAB PO DAILY Aspirin (Children's Aspirin) 81 Mg Tab.chew, 81 MG PO DAILY Atorvastatin Calcium (Atorvastatin Calcium) 20 Mg Tablet, 40 MG PO DAILY Lisinopril (Lisinopril) 20 Mg Tablet, 20 MG PO DAILY Omeprazole (Omeprazole) 20 Mg Capsule.dr, 40 MG PO DAILY Allergies Coded Allergies: No Known Allergies (Unverified , 08/06/20) VICKY ALEGRE DO Aug 29, 2020 18:26
--- NOTE | 2020-08-30 11:26 | ROOR ---
Patient Name: Adonis Caballero Procedure Date: 08/26/2020 8:01 PM Date of : 1940 Age: 80 Gender: Male Note Status: Finalized Procedure: Upper GI endoscopy Indications: Dysphagia Providers: Robinson Ivey MD Referring MD: Henri Galindo Do Requesting Provider: Medicines: Monitored Anesthesia Care Complications: No immediate complications. Procedure: Pre-Anesthesia Assessment: - Prior to the procedure, a History and Physical was performed, and patient medications and allergies were reviewed. The patient is competent. The risks and benefits of the procedure and the sedation options and risks were discussed with the patient. All questions were answered and informed consent was obtained. Patient identification and proposed procedure were verified by the physician, the nurse and the door puller in the procedure room. Mental Status Examination: alert and oriented. Prophylactic Antibiotics: The patient requires prophylactic antibiotics for planned PEG placement. The patient received antibiotic therapy before the procedure. Prior Anticoagulants: The patient has taken no previous anticoagulant or antiplatelet agents. ASA Grade Assessment: III - A patient with severe systemic disease. After reviewing the risks and benefits, the patient was deemed in satisfactory condition to undergo the procedure. The anesthesia plan was to use monitored anesthesia care (MAC). Immediately prior to administration of medications, the patient was re-assessed for adequacy to receive sedatives. The heart rate, respiratory rate, oxygen saturations, blood pressure, adequacy of pulmonary ventilation, and response to care were monitored throughout the procedure. The physical status of the patient was re-assessed after the procedure. The Endoscope was introduced through the mouth, and advanced to the second part of duodenum. The upper GI endoscopy was accomplished without difficulty. The patient tolerated the procedure well. Findings: A small hiatal hernia was present. The exam of the esophagus was otherwise normal. The entire examined stomach was normal. The first portion of the duodenum and second portion of the duodenum were normal. Normal mucosa was found in the entire examined stomach. The patient was placed in the supine position for PEG placement. The stomach was insufflated to appose gastric and abdominal anand. A site was located in the body of the stomach with excellent transillumination for placement. The abdominal wall was marked and prepped in a sterile manner. The area was anesthetized with 5 mL of 1% lidocaine. The trocar needle was introduced through the abdominal wall and into the stomach under direct endoscopic view. A snare was introduced through the endoscope and opened in the gastric lumen. The guide wire was passed through the trocar and into the open snare. The snare was closed around the guide wire. The endoscope and snare were removed, pulling the wire out through the mouth. A skin incision was made at the site of needle insertion. The externally removable 20 Fr Davin-Cook gastrostomy tube was lubricated. The G-tube was passed over the guide wire through the mouth, and into the stomach. The trocar needle was removed, and the gastrostomy tube was pulled out from the stomach through the skin. The guide wire was removed, and the external bumper attached to the gastrostomy tube. The feeding tube was then cut to an appropriate length. The final position of the gastrostomy tube was confirmed by relook endoscopy, and skin marking noted to be 2 cm at the external bumper. The final tension and compression of the abdominal wall by the PEG tube and external bumper were checked and revealed that the bumper was loose and lightly touching the skin and that the PEG balloon was loose and lightly touching the stomach. The feeding tube was capped, and the tube site was cleaned and dressed. Impression: - Small hiatal hernia. - Normal stomach. - Normal first portion of the duodenum and second portion of the duodenum. - Normal mucosa was found in the entire stomach. - An externally removable PEG placement was successfully completed. - No specimens collected. Recommendation: - [facility]. Procedure Code(s): --- Professional --- 04666, Esophagogastroduodenoscopy, flexible, transoral; with directed placement of percutaneous gastrostomy tube Diagnosis Code(s): --- Professional --- K44.9, Diaphragmatic hernia without obstruction or gangrene R13.10, Dysphagia, unspecified CPT copyright 2019 [employer]. All rights reserved. The codes documented in this report are preliminary and upon family engagement specialist review may be revised to meet current compliance requirements. Attending Participation: I personally performed the entire procedure. Robinson Ivey MD Robinson Ivey MD 08/30/2020 11:25:58 AM Electronically signed by Robinson Ivey MD Number of Addenda: 0 Note Initiated On: 08/26/2020 8:01 PM Estimated Blood Loss: Estimated blood loss was minimal.
== END 2020-08-29 15:15 | DRG 64 ==
LOC: EDBD 16:19 → M ED 16:19 → M ED INP 16:20 → ENRESERV 19:02 → M PCU 20:00 → OBSVTOIN 08-07 16:23
PROVIDERS: ADMIT Internal Medicine; ATTEND Internal Medicine
PROC: 02HV33Z Insertion of Infusion Device into Superior Vena Cava, Percutaneous Approach (ICD-10-PCS; 2020-08-12)
PROC: 0DH63UZ Insertion of Feeding Device into Stomach, Percutaneous Approach (ICD-10-PCS; principal; 2020-08-26 16:42)
DX: I63.9 Cerebral infarction, unspecified (principal); J69.0 Pneumonitis due to inhalation of food and vomit; E43 Unspecified severe protein-calorie malnutrition; I50.31 Acute diastolic (congestive) heart failure; I69.354 Hemiplegia and hemiparesis following cerebral infarction affecting left non-dominant side; E87.0 Hyperosmolality and hypernatremia; N17.9 Acute kidney failure, unspecified; E87.6 Hypokalemia; I69.391 Dysphagia following cerebral infarction; I11.0 Hypertensive heart disease with heart failure; Z51.5 Encounter for palliative care; Z66 Do not resuscitate